=== PATIENT | male | born 1940 | race Caucasian/White ===

== ENCOUNTER → 2020-05-20 10:10 | Outpatient (BNVA) | payer MEDICARE, SELFPAY | PROVIDERS: PCP Internal Medicine; Visit Provider Hospitalist | DX: J41.8 Mixed simple and mucopurulent chronic bronchitis (principal); R91.8 Other nonspecific abnormal finding of lung field | CPT/HCPCS: 99212 ==

== ENCOUNTER 2020-09-01 14:53 | Emergency (ER) | payer MEDICARE, SELFPAY ==
--- NOTE | ~2020-09-01 | XR_ITS ---
EXAMINATION: XR CHEST CLINICAL INFORMATION: SOB. COMPARISON: None TECHNIQUE: Frontal view of the chest was obtained. FINDINGS: The lungs are hyperinflated but clear of acute process. Heart size and pulmonary vascularity is normal. No gross bony abnormality seen. XR/XR chest 1V IMPRESSION: Hyperinflated lungs are unremarkable.
[2020-09-01 15:37] VITALS: BP 131/85; PULSE 77; RESP 16; TEMP 36.8; O2SAT 98; BMI 23.7
[2020-09-01 16:22] LABS: Basophils Absolute Auto 0.1 X10*3/uL (0.0-0.2); Eosinophils Absolute Auto 0.9 X10*3/uL (0.0-0.4); Hematocrit 43.8 % (42-52); Hemoglobin 14.5 g/dl (14.0-18.0); Imm Gran Abs Auto 0.01 X10*3/uL (0.00-0.03); Imm Gran Pct Auto 0.1 % (0.0-0.4); Lymphocytes Absolute Auto 1.5 X10*3/uL (1.2-4.9); Lymphocytes Percent Auto 20.9 % (20-40); MANUAL DIFF FLAG NO; Mean Corpuscular HGB Conc 33.1 g/dl (31.0-36.0); Mean Corpuscular Hemoglobin 31.7 pg (27.0-33.0); Mean Corpuscular Volume 95.6 fL (80-98); Mean Platelet Volume 9.3 fL (9.4-12.4); Monocytes Absolute Auto 0.5 X10*3/uL (0.1-1.2); Monocytes Percent Auto 6.8 % (2-11); Neutrophils Absolute Auto 4.2 X10*3/uL (2.0-8.3); Neutrophils Percent Auto 59.2 % (45-73); Platelet Count 204 X10*3/uL (160-400); Red Blood Count 4.58 X10*6/uL (4.60-5.80); White Blood Count 7.2 X10*3/uL (4.8-10.8)
[2020-09-01 16:45] LABS: Anion Gap 13 (12-20); Blood Urea Nitrogen 10 mg/dL (9-16); Calcium 9.3 mg/dL (8.4-10.2); Carbon Dioxide 27 mmol/L (22-29); Chloride 104 mmol/L (96-108); Creatinine Clr Calc Pharmacy 70.9; Estimated Glomerular Filt Rate > 60; Glucose Random 98 mg/dL (60-115); Potassium 4.5 mmol/L (3.3-5.1); Sodium 139 mmol/L (135-145)
--- NOTE | 2020-09-01 16:55 | ED.SOB ---
HPI - SOB/Dyspnea General Chief Complaint: Dyspnea Stated Complaint: diff breathing Time Seen by Provider: 09/01/20 16:55 Source: patient Mode of arrival: ambulatory Limitations: no limitations History of Present Illness HPI Narrative: Patient history of COPD on Advair and albuterol inhaler pain congested and more short of breath with wheezing for last few days with postnasal drip and cough with mucopurulent expectoration no fever or chills no chest pain no leg swelling no palpitation patient get more short of breath when he exerts or do some work , feels congested in the night Related Data Home Medications Medication Instructions Recorded Confirmed fluticasone propionate 115 2 puff INHALATION BID 05/20/20 05/20/20 mcg-salmeterol 21 mcg/actuation HFA inhaler Previous Rx's Medication Instructions Recorded albuterol sulfate 90 mcg/actuation 2 inh INHALATION Q6H PRN 30 Days 05/20/20 aerosol inhaler #18 g albuterol sulfate 2.5 mg INHALATION Q4-6H PRN #180 ml 09/01/20 amoxicillin-pot clavulanate 1 tab PO BID #20 tab 09/01/20 [Augmentin] prednisone 40 mg PO DAILY #10 tab 09/01/20 Allergies Allergy/AdvReac Type Severity Reaction Status Date / Time Floxin Otic Allergy Severe Headache Uncoded 05/20/20 12:50 Review of Systems Review of Systems: Constitutional : No Weight loss, No Fever, No Chills ENT/Mouth : No sore throat, No Rhinorrhea Eyes: No Eye Pain, No Swelling Cardiovascular : No Chest Pain, no palpitations Respiratory : ++Cough, + Sputum, +shortness of breath Gastrointestinal : no Nausea, No Vomiting, No Diarrhea, No abdominal Pain, no black stools Genitourinary : No Dysuria, No Urinary Frequency Musculoskeletal : No joint pain, No Myalgias, No Joint Swelling Skin : No Skin Lesions, No rash Neuro : No Weakness, No Numbness, No Dizziness, No Headache Psych : No Anxiety/Panic, No Depression Heme/Lymph: No Bruising, No Lymphadenopathy Endocrine : No Polyuria, No Polydipsia All other systems reviewed and are negative PMFSH Past Medical History Medical History COPD (chronic obstructive pulmonary disease) Pulmonary nodules Social History Social History Alcohol intake: never Smoking Status: Former smoker Tobacco Type: Cigarette Use of substances other than those prescribed or required for medical reasons: No Advance Directives: No Advance Directives Information Provided: No Physical Exam Vital Signs: Vital Signs: Last Vital Signs Temp 98.2 F 09/01/20 15:37 Pulse 16 L 09/01/20 18:44 Resp 16 09/01/20 15:37 BP 131/85 09/01/20 15:37 Pulse Ox 94 09/01/20 18:44 Body Mass Index 23.7 Appearance: Alert. Oriented X3. No acute distress. Eyes: PERRLA, No Nystagmus ENT: Pharynx normal. Oral Mucosa moist Neck: Normal inspection. Neck supple. CVS: Normal heart rate and rhythm. Pulses normal. Respiratory: No respiratory distress. Equal air entry bilateral, bilateral diffuse wheezing with rhonchi , bilateral basal crackles ++ Abdomen: Soft and nontender. Bowel sounds are present, no mass palpable, no CVA tenderness Skin: Skin warm and dry. Normal skin color. Normal skin turgor. Extremities: No lower extremity edema. No calf tenderness Neuro: Oriented X 3. No motor deficit. No sensory deficit.No cerebellar signs , cranial nerves II-XII intact MDM - SOB/Dyspnea MDM Narrative Medical decision making narrative: Patient with chronic bronchitis COPD responded to nebulizing treatment prednisone discharge him on prednisone saturating 94 95% at room Medical Records Attestation: I reviewed the patient's medical records. Lab Data Attestation: I reviewed the patient's lab results. Result diagrams: 09/01/20 16:15 09/01/20 16:15 Labs: Lab Results 09/01/20 09/01/20 Range/Units 16:15 16:15 WBC 7.2 (4.8-10.8) X10*3/uL RBC 4.58 L (4.60-5.80) X10*6/uL Hgb 14.5 (14.0-18.0) g/dl Hct 43.8 (42-52) % MCV 95.6 (80-98) fL MCH 31.7 (27.0-33.0) pg MCHC 33.1 (31.0-36.0) g/dl RDW 13.0 (11.0-16.0) % Plt Count 204 (160-400) X10*3/uL MPV 9.3 L (9.4-12.4) fL Immature Gran % (Auto) 0.1 (0.0-0.4) % Neut % (Auto) 59.2 (45-73) % Lymph % (Auto) 20.9 (20-40) % [place] % (Auto) 6.8 (2-11) % Eos % (Auto) 12.0 H (0-4) % Baso % (Auto) 1.0 (0-2) % Lymph # (Auto) 1.5 (1.2-4.9) X10*3/uL [place] # (Auto) 0.5 (0.1-1.2) X10*3/uL Eos # (Auto) 0.9 H (0.0-0.4) X10*3/uL Baso # (Auto) 0.1 (0.0-0.2) X10*3/uL Abs Immat Gran (auto) 0.01 (0.00-0.03) X10*3/uL Absolute Neuts (auto) 4.2 (2.0-8.3) X10*3/uL Absolute Nucleated RBC 0.000 (0.0-0.012) X10*3/uL Nucleated RBC % (auto) 0.0 (0.0-0.2) /100WBC Sodium 139 (135-145) mmol/L Potassium 4.5 (3.3-5.1) mmol/L Chloride 104 (96-108) mmol/L Carbon Dioxide 27 (22-29) mmol/L Anion Gap 13 (12-20) BUN 10 (9-16) mg/dL Creatinine 0.83 (0.5-1.4) mg/dL Estim Creat Clear Calc 70.9 Estimated GFR > 60 Random Glucose 98 (60-115) mg/dL Calcium 9.3 (8.4-10.2) mg/dL Discharge Plan Discharge Clinical Impression: COPD (chronic obstructive pulmonary disease) Qualifiers: COPD type: COPD with acute lower respiratory infection Qualified Code(s): J44.0 - Chronic obstructive pulmonary disease with (acute) lower respiratory infection Patient Disposition: Home, Self-Care Instructions: Acute Bronchitis (ED), COPD (Chronic Obstructive Pulmonary Disease) (ED) Prescriptions: New prednisone 20 mg tablet 40 mg PO DAILY Qty: 10 RF: 0 amoxicillin-pot clavulanate [Augmentin] 875-125 mg tablet 1 tab PO BID Qty: 20 RF: 0 albuterol sulfate 2.5 mg /3 mL (0.083 %) solution for nebulization 2.5 mg inhalation Q4-6H PRN (Reason: shortness of breath or wheezing) Qty: 180 RF: 0 No Action Advair HFA 115-21 mcg/actuation HFA aerosol inhaler 2 puff inhalation BID RF: 0 albuterol sulfate 90 mcg/actuation HFA aerosol inhaler 2 inh inhalation Q6H PRN (Reason: shortness of breath or wheezing) 30 Days Qty: 18 RF: 12 Interventions: ED Discharge Assessment Last Done: 09/01/20 18:50 Discharge Date/Time: 09/01/20 19:22
[2020-09-01] MEDS: Albuterol/Iprat 2.5/0.5MG 3 ML AMPUL.NEB INHALE (17:18)
[2020-09-01] MEDS: Albuterol Sulfate (0.083%) 2.5 MG/3 ML VIAL.NEB 5 MG INHALE (17:18)
[2020-09-01 17:20] VITALS: PULSE 67; O2SAT 93
[2020-09-01] MEDS: predniSONE 20 MG TABLET 40 MG PO (17:28)
[2020-09-01] MEDS: Amoxicillin/Potassium Clav 875 MG TABLET PO (17:28)
[2020-09-01 18:44] VITALS: PULSE 16; O2SAT 94
== END 2020-09-01 19:22 | disposition home or self-care (01) ==
PROVIDERS: Emergency Provider Internal Medicine; PCP Internal Medicine
DX: J44.0 Chronic obstructive pulmonary disease with (acute) lower respiratory infection (principal); R91.8 Other nonspecific abnormal finding of lung field; Z79.51 Long term (current) use of inhaled steroids; Z79.899 Other long term (current) drug therapy; Z87.891 Personal history of nicotine dependence
CPT/HCPCS: 36415; 71045; 80048; 85025; 94640; 94644; 99284

== ENCOUNTER → 2020-09-30 10:48 | Outpatient (BNVA) | payer MEDICARE, SELFPAY | PROVIDERS: PCP Internal Medicine; Visit Provider Hospitalist | DX: D72.19 Other eosinophilia (principal); R91.8 Other nonspecific abnormal finding of lung field; J44.9 Chronic obstructive pulmonary disease, unspecified | CPT/HCPCS: 99212 ==

== ENCOUNTER → 2020-11-24 10:30 | Outpatient (BNVA) | payer MEDICARE, SELFPAY | PROVIDERS: PCP Internal Medicine; Visit Provider Hospitalist | DX: J44.9 Chronic obstructive pulmonary disease, unspecified (principal); R91.8 Other nonspecific abnormal finding of lung field; D72.19 Other eosinophilia | CPT/HCPCS: 99212 ==

== ENCOUNTER → 2021-06-01 10:40 | Outpatient (BNVA) | payer MEDICARE, SELFPAY | PROVIDERS: PCP Internal Medicine; Visit Provider Hospitalist | DX: J44.9 Chronic obstructive pulmonary disease, unspecified (principal); R91.8 Other nonspecific abnormal finding of lung field; D72.19 Other eosinophilia | CPT/HCPCS: 99212 ==

== ENCOUNTER → 2021-12-02 09:27 | Outpatient (BNVA) | payer MEDICARE, SELFPAY | PROVIDERS: PCP Internal Medicine; Visit Provider Hospitalist | DX: J44.9 Chronic obstructive pulmonary disease, unspecified (principal); R91.8 Other nonspecific abnormal finding of lung field; D72.19 Other eosinophilia; Z79.899 Other long term (current) drug therapy | CPT/HCPCS: 99212 ==

== ENCOUNTER 2022-11-22 09:27 | Outpatient (REF) | payer MEDICARE, SELFPAY | END 2022-11-22 09:28 | disposition home or self-care (01) | LOC: HO.RESP 09:27 | PROVIDERS: Visit Provider Hospitalist | DX: J44.9 Chronic obstructive pulmonary disease, unspecified (principal) | CPT/HCPCS: 94010; 94727; 94729 ==

== ENCOUNTER 2022-12-05 11:16 | Outpatient (AMB) | payer MEDICARE, SELFPAY ==
--- NOTE | 2022-12-05 11:21 | A.OFFVIS_ITS ---
Intake Vital Signs 12/05/22 11:22 Height 5 ft 8 in Weight 168 lb 10.458 oz BMI 25.6 BP 148/78 H Blood Pressure Location Rt brachial Position Sitting Pulse 60 Pulse Source Pulse Oximeter Pulse Oximetry (%) 94 Oxygen Delivery Method Room Air Intake Visit Reasons: COPD Allergies Floxin Otic Allergy (Severe, Uncoded 12/05/22 11:23) Headache HPI HPI Comments History of Present Illness Details The patient is a 82-year-old gentleman with a known history of asthma COPD overlap syndrome in addition to pulmonary nodules. 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 During that time was exposed to significant dust from surrounding tiles in route. He started feeling under the weather once he arrived to [facility]. Started developing worsening respiratory symptoms he was taken to the hospital. There he had an x-ray which was without any acute disease in he was placed on antibiotics and also prednisone. His symptoms not improve and actually worsen in the cold the on-call doctor to visit him in his room. He actually required 2 visits. His medications were increased both prednisone and was given a course of Augmentin. He was also given a short- acting beta agonist that he did not bring with him. Now the patient is better. He did have significant weight loss. We did have him get a CT scan of the chest back in November 2018 demonstrating stable pulmonary nodules when compared to his previous CAT scan. 11/20/2020 the patient is here for pulmonary follow-up visit. He is doing well overall. He continues uses respiratory therapy with good adherence. During the hot humid days he is having some shortness of breath and usually needs to take a break after half an hour outside. I explained to him that he should specially with the poor air quality that will resulting worsening respiratory symptoms along with more work of breathing. Patient should monitor closely the weather before going outside for any activities. In the meantime he did have a CT scan of the chest that we personally reviewed here in the office. We also compared to a CAT scan he had back in 2015. It appears that his nodules are still small and stable measuring 3-4 mm in size. In addition to that he continues to have chronic bronchitis but overall a little better with less mucus plugging which is reassuring. 05/20/2020 the patient is here for pulmonary follow-up visit. Overall he is still complaining of shortness of breath. Specially with the cold weather. However, he has not been using his Advair as prescribed. He understands he jeremy uld use it on a daily basis. Today he use it because remember. He also does not have a rescue inhaler. He has agreed to use the Advair least once a day in the morning before brushes his teeth. And I will send him a ProAir rescue inhaler to have as needed. He can also use it 15 minutes before planning to do any outside activities specially with the cold air causing bronchospasms. His last CT scan of the chest was done October 2019 demonstrating stable pulmonary nodules. Patient also has evidence of chronic bronchitis. Could consider treating for chronic bronchitis with Daliresp. We will discuss during the next visit if he is no better with better medication adherence. 09/30/2020 the patient is here for pulmonary follow-up visit. Since we last spoke the patient did require a brief hospitalization for a COPD exacerbation. Apparently the patient had been working outside when he all of a sudden became very winded. It was very hot and humid outside. He did go to the ER as per above recommendations. The patient was admitted to the hospital. We did review his chest x-ray demonstrating hyperinflated lungs consistent with COPD. In addition to that the patient had a significantly elevated eosinophil count suggesting some component of eosinophilic bronchitis. The patient likely has asthma COPD overlap syndrome. He was treated in subsequently released. Since that episode he has not had any other episodes. Although, he is not working outside with the [employer] like he normally does. He does enjoy going outside working. I did recommend that he could try getting a respirator where he can protect from small allergy particles to avoid the significant allergic reactions. He also has to be aware of the humidity levels. Overall he is doing okay. He still complains of dyspnea on exertion [id number] in severity. He also has a cough which at this point is nonproductive. 11/24/2020 the patient is here for a pulmonary follow-up visit. Overall the patient has been doing better. Responded well to the increasing the Advair. Still, when he goes outside and or goes into an area that is twin he starts coughing up again. I did advise him before and now to wear a mask specially when exposed to the particles and also known allergies. He does have significant eosinophilia that we spoke about again. At this point the patient does not require biologic therapy. Patient is interested in getting his 3rd COVID shot. He has a planned trip to go to her room via in January. I did advise him to wait till early January to get his COVID vaccine. He is to also get his flu shot around the same time just prior to his trip. At this point the patient is doing well will follow-up in 6 months. 06/01/2021 the patient is here for a pulmonary follow-up visit. He continues to be symptomatic at times. Does get short of breath with activity. He also has significant exposures that usually a trigger his obstructive airway disease. 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 this is a lot of dust around the may be triggering his Asthma. 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 The patient had been prescribed Advair HFA in addition to Spiriva. His adherence is not 100%. Sometimes he does not take both just takes 1 of the inhalers. Therefore I think he would be better off with Trelegy inhaler where he can be maximized on his respiratory therapy and just be once a day were he can use it more effectively and with more adherence. Patient understands that this is a chronic illness that may be present and will need to take medications to help improve his symptoms. 12/02/2021 the patient is here for a pulmonary follow-up visit. Overall he is doing lot better. The Trelegy inhaler has been very effective in beneficial for him. he has not had to use his rescue inhaler. He has been more active outside doing multiple projects because the fact that he feels better. Denies any weight loss or night sweats. Otherwise the patient is without any other complaints. His last chest x-ray was back in 2020 demonstrating hyperinflated lungs consistent with his obstructive airway disease. His last CT scan was back in 2019 demonstrating stable pulmonary nodules. At this point the patient seems to be doing well will plan to follow- up with pulmonary function studies. Will discuss further imaging studies during his visit in a year's time. If the patient has any symptoms or worsening symptoms prior to the next visit the patient is to call us for an earlier evaluation. [facility] Medical History (Updated 09/30/20 @ 22:55 by Shoaib Byrne MD) Asthma-COPD overlap syndrome COPD (chronic obstructive pulmonary disease) Eosinophilia Pulmonary nodules Social History (Updated 09/30/20 @ 11:01 by GRGE Fraga) Alcohol intake: never Patient Tobacco Use Status: Former Tobacco user Tobacco use type: Cigarette Years Smoked: 40 years Review of Systems Const Denies night sweats ENT Denies lip swelling and Denies tongue swelling Card Denies chest pain and Reports dyspnea on exertion Resp Reports cough, Reports dyspnea on exertion and Reports wheezing GI Denies abdominal pain Musc Denies no additional complaints Neuro Denies Neuro-related abnormal movements Psych Denies no additional complaints Mele/Lymph Denies easy bleeding and Denies lymphadenopathy Aller/Immun Denies lip swelling, Denies tongue swelling and Reports wheezing Physical Exam Vital Signs: Last Vital Signs Pulse 60 12/05/22 11:22 BP 148/78 H 12/05/22 11:22 Pulse Ox 94 12/05/22 11:22 Oxygen Delivery Method Room Air 12/05/22 11:22 BMI result Body Mass Index 25.6 Const General: alert Neck Neck: Yes normal visual inspection, Yes full ROM and Yes no lymphadenopathy Chest Chest palpation & inspection: normal inspection of the chest Resp Effort & Inspection: prolonged expiratory phase Auscultation: wheezes and diminished lung sounds Cardio Rate: regular rate Rhythm: regular rhythm Heart sounds: S1 normal heart sound present and S2 normal heart sound present GI Palpation (GI): Soft to palpation and nontender Auscultation: normal bowel sounds Skin General skin exam: rashes and/or lesions noted Assessment & Plan Assessment & Plan (1) Asthma-COPD overlap syndrome: Code(s): J44.9 - Chronic obstructive pulmonary disease, unspecified (2) Pulmonary nodules: Code(s): R91.8 - Other nonspecific abnormal finding of lung field (3) Eosinophilia: Code(s): D72.10 - Eosinophilia, unspecified Qualifiers: Eosinophilia type: other eosinophilia Qualified Code(s): D72.19 - Other eosinophilia Plan The patient has a eosinophilic allergic phenotype obstructive airway disease. He does have an asthma component in the this point with smoking history now has some overlap syndrome. Recommendations: -continue Trelegy 200 daily -continue Singular -start Azithromycin MWF x 1 month -Short-acting beta agonist as needed and also 15 minutes before exercise or extraneous activity -Last Ct chest 10/2019 demonstrating stable nodules -follow-up in 4 months Medications: New azithromycin Take 1 tablet on Monday/Monday/Monday 250 mg PO 3XW 28 days 12 tabs 0RF K21.9 - Gastro-esophageal reflux disease without esophagitis Coding Level of Care Code Est Pt Level 4 (08206) Diagnoses Asthma-COPD overlap syndrome J44.9 Pulmonary nodules R91.8 Eosinophilia D72.19 Eosinophilia type: other eosinophilia Time Spent (min) 17
[2022-12-05 11:22] VITALS: BP 148/78; PULSE 60; O2SAT 94; BMI 25.6
== END 2022-12-05 11:53 | disposition home or self-care (01) ==
PROVIDERS: PCP Internal Medicine; Visit Provider Hospitalist
DX: J44.9 Chronic obstructive pulmonary disease, unspecified (principal); R91.8 Other nonspecific abnormal finding of lung field; D72.19 Other eosinophilia
CPT/HCPCS: 99214

== ENCOUNTER → 2022-12-05 11:16 | Outpatient (BNVA) | payer MEDICARE, SELFPAY | PROVIDERS: PCP Internal Medicine; Visit Provider Hospitalist | DX: J44.9 Chronic obstructive pulmonary disease, unspecified (principal); R91.8 Other nonspecific abnormal finding of lung field; D72.19 Other eosinophilia; Z79.899 Other long term (current) drug therapy | CPT/HCPCS: 99212 ==

== ENCOUNTER 2023-02-28 09:45 | Outpatient (AMB) | payer MEDICARE, SELFPAY ==
[2023-02-28 09:49] VITALS: BP 128/70; PULSE 76; O2SAT 97; BMI 25.6
--- NOTE | 2023-02-28 09:49 | MHC.OFFVIS ---
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 During that time was exposed to significant dust from surrounding tiles in route. He started feeling under the weather once he arrived to [facility]. Started developing worsening respiratory symptoms he was taken to the hospital. There he had an x-ray which was without any acute disease in he was placed on antibiotics and also prednisone. His symptoms not improve and actually worsen in the cold the on-call doctor to visit him in his room. He actually required 2 visits. His medications were increased both prednisone and was given a course of Augmentin. He was also given a short-acting beta agonist that he did not bring with him. Now the patient is better. He did have significant weight loss. We did have him get a CT scan of the chest back in November 2018 demonstrating stable pulmonary nodules when compared to his previous CAT scan. 11/20/2020 the patient is here for pulmonary follow-up visit. He is doing well overall. He continues uses respiratory therapy with good adherence. During the hot humid days he is having some shortness of breath and usually needs to take a break after half an hour outside. I explained to him that he should specially with the poor air quality that will resulting worsening respiratory symptoms along with more work of breathing. Patient should monitor closely the weather before going outside for any activities. In the meantime he did have a CT scan of the chest that we personally reviewed here in the office. We also compared to a CAT scan he had back in 2015. It appears that his nodules are still small and stable measuring 3-4 mm in size. In addition to that he continues to have chronic bronchitis but overall a little better with less mucus plugging which is reassuring. 06/01/2021 the patient is here for a pulmonary follow-up visit. He continues to be symptomatic at times. Does get short of breath with activity. He also has significant exposures that usually a trigger his obstructive airway disease. 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 this is a lot of dust around the may be triggering his Asthma. 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 The patient had been prescribed Advair HFA in addition to Spiriva. His adherence is not 100%. Sometimes he does not take both just takes 1 of the inhalers. Therefore I think he would be better off with Trelegy inhaler where he can be maximized on his respiratory therapy and just be once a day were he can use it more effectively and with more adherence. Patient understands that this is a chronic illness that may be present and will need to take medications to help improve his symptoms. 12/02/2021 the patient is here for a pulmonary follow-up visit. Overall he is doing lot better. The Trelegy inhaler has been very effective in beneficial for him. he has not had to use his rescue inhaler. He has been more active outside doing multiple projects because the fact that he feels better. Denies any weight loss or night sweats. Otherwise the patient is without any other complaints. His last chest x-ray was back in 2020 demonstrating hyperinflated lungs consistent with his obstructive airway disease. His last CT scan was back in 2019 demonstrating stable pulmonary nodules. At this point the patient seems to be doing well will plan to follow-up with pulmonary function studies. Will discuss further imaging studies during his visit in a year's time. If the patient has any symptoms or worsening symptoms prior to the next visit the patient is to call us for an earlier evaluation. 02/28/2023 the patient is here for pulmonary follow-up visit. Overall doing better. He is taking the Trelegy more. He still getting short of breath with activity. He is on the treadmill for about a mallet have and is also using the bike for about a mi and a half. Tolerates this well he is also working outside. She we did talk about the significant eosinophilia. The patient will be a great candidate for al 5 inhibitors. 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 He will likely even be able to come off some of the inhalers. However, the patient is not ready for shots as of yet. I did give him information about it. He will consider. Will discuss it further in 6 months. He knows to use his inhaler more regularly to avoid any worsening symptoms. [facility] Medical History (Updated 02/28/23 @ 10:00 by Shoaib Byrne MD) Asthma Asthma-COPD overlap syndrome Eosinophilia Pulmonary nodules COPD (chronic obstructive pulmonary disease) (Updated 09/30/20 @ 11:01 by Cherrie Ibrahim Serafin) Alcohol intake: never Patient Tobacco Use Status: Former Tobacco user Tobacco use type: Cigarette Years Smoked: 40 years Review of Systems Const Denies night sweats ENT Denies lip swelling and Denies tongue swelling Card Denies chest pain and Reports dyspnea on exertion Resp Reports cough, Reports dyspnea on exertion and Reports wheezing GI Denies abdominal pain Musc Denies no additional complaints Neuro Denies Neuro-related abnormal movements Psych Denies no additional complaints Mele/Lymph Denies easy bleeding and Denies lymphadenopathy Aller/Immun Denies lip swelling, Denies tongue swelling and Reports wheezing Physical Exam Vital Signs: Last Vital Signs Pulse 76 02/28/23 09:49 BP 128/70 02/28/23 09:49 Pulse Ox 97 02/28/23 09:49 Oxygen Delivery Method Room Air 02/28/23 09:49 BMI result Body Mass Index 25.6 Const General: alert Neck Neck: Yes normal visual inspection, Yes full ROM and Yes no lymphadenopathy Chest Chest palpation & inspection: normal inspection of the chest Resp Effort & Inspection: normal respiratory effort Auscultation: no wheezes and diminished lung sounds Cardio Rate: regular rate Rhythm: regular rhythm Heart sounds: S1 normal heart sound present and S2 normal heart sound present GI Palpation (GI): Soft to palpation and nontender Auscultation: normal bowel sounds Skin General skin exam: rashes and/or lesions noted Assessment & Plan Assessment & Plan (1) Asthma-COPD overlap syndrome: Code(s): J44.9 - Chronic obstructive pulmonary disease, unspecified (2) Pulmonary nodules: Code(s): R91.8 - Other nonspecific abnormal finding of lung field (3) Eosinophilia: Code(s): D72.10 - Eosinophilia, unspecified Qualifiers: Eosinophilia type: other eosinophilia Qualified Code(s): D72.19 - Other eosinophilia Plan -continue Trelegy 200 daily -continue Singular -Short-acting beta agonist as needed and also 15 minutes before exercise or extraneous activity -ConsiderBiologic therapy with Fasenra if continues to be symptomatic. Would need to repeat bloodwork if that is the case -Last Ct chest 10/2019 demonstrating stable nodules -follow-up in 6 months Orders: Orders Complete Blood Count Auto Diff Today D72.10 - Eosinophilia, unspecified, J44.9 - Chronic obstructive pulmonary disease, unspecified, J45.909 - Unspecified asthma, uncomplicated, R91.8 - Other nonspecific abnormal finding of lung field Immunoglobulin E Today D72.10 - Eosinophilia, unspecified, J44.9 - Chronic obstructive pulmonary disease, unspecified, J45.909 - Unspecified asthma, uncomplicated, R91.8 - Other nonspecific abnormal finding of lung field Immunoglobulins,IgG IgA IgM Today D72.10 - Eosinophilia, unspecified, J44.9 - Chronic obstructive pulmonary disease, unspecified, J45.909 - Unspecified asthma, uncomplicated, R91.8 - Other nonspecific abnormal finding of lung field Basic Metabolic Panel Today D72.10 - Eosinophilia, unspecified, J44.9 - Chronic obstructive pulmonary disease, unspecified, J45.909 - Unspecified asthma, uncomplicated, R91.8 - Other nonspecific abnormal finding of lung field Coding Level of Care Code Est Pt Level 4 (20372) Diagnoses Asthma-COPD overlap syndrome J44.9 Pulmonary nodules R91.8 Other eosinophilia D72.19 Eosinophilia type: other eosinophilia Time Spent (min) 16
== END 2023-02-28 10:09 | disposition home or self-care (01) ==
PROVIDERS: PCP Family Medicine; Visit Provider Hospitalist
DX: J44.9 Chronic obstructive pulmonary disease, unspecified (principal); R91.8 Other nonspecific abnormal finding of lung field; D72.19 Other eosinophilia
CPT/HCPCS: 99214

== ENCOUNTER → 2023-02-28 09:45 | Outpatient (BNVA) | payer MEDICARE, SELFPAY | PROVIDERS: PCP Family Medicine; Visit Provider Hospitalist | DX: J44.9 Chronic obstructive pulmonary disease, unspecified (principal); R91.8 Other nonspecific abnormal finding of lung field; D72.19 Other eosinophilia | CPT/HCPCS: 99212 ==

== ENCOUNTER 2023-05-03 09:40 | Outpatient (AMB) | payer MEDICARE, SELFPAY ==
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
[2023-05-03 09:47] VITALS: BP 136/80; PULSE 84; RESP 13; O2SAT 97; BMI 26.2
== END 2023-05-03 11:45 | disposition home or self-care (01) ==
PROVIDERS: PCP Family Medicine; Visit Provider Family Medicine
DX: J44.9 Chronic obstructive pulmonary disease, unspecified (principal); R51.9 Headache, unspecified; M25.569 Pain in unspecified knee; Z12.11 Encounter for screening for malignant neoplasm of colon; Z12.5 Encounter for screening for malignant neoplasm of prostate; Z86.010 Personal history of colon polyps; Z00.00 Encounter for general adult medical examination without abnormal findings
CPT/HCPCS: 99203

== ENCOUNTER 2023-05-03 10:58 | Outpatient (REF) | payer MEDICARE, SELFPAY ==
[2023-05-03 14:55] LABS: MANUAL DIFF FLAG NO
[2023-05-03 15:10] LABS: Basophils Absolute Auto 0.1 X10*3/uL (0.0-0.2); Basophils Percent Auto 1.2 % (0-2); Eosinophils Absolute Auto 0.7 X10*3/uL (0.0-0.4); Eosinophils Percent Auto 10.9 % (0-4); Hemoglobin 14.5 g/dl (14.0-18.0); Imm Gran Abs Auto 0.02 X10*3/uL (0.00-0.03); Imm Gran Pct Auto 0.3 % (0.0-0.4); Lymphocytes Absolute Auto 1.8 X10*3/uL (1.2-4.9); Mean Corpuscular HGB Conc 32.2 g/dl (31.0-36.0); Mean Corpuscular Hemoglobin 30.9 pg (27.0-33.0); Mean Corpuscular Volume 95.9 fL (80.0-98.0); Mean Platelet Volume 9.8 fL (9.4-12.4); Monocytes Absolute Auto 0.6 X10*3/uL (0.1-1.2); Monocytes Percent Auto 8.7 % (2-11); Neutrophils Absolute Auto 3.5 x10*3/uL (2.0-8.3); Neutrophils Percent Auto 51.9 % (45-73); Platelet Count 275 X10*3/uL (160-400); Red Blood Count 4.69 X10*6/uL (4.60-5.80); Red Cell Distribution Width 13.2 % (11.0-16.0); White Blood Count 6.8 X10*3/uL (4.8-10.8)
[2023-05-03 15:15] LABS: Appearance Urine Clear; Color Urine Yellow; Glucose Urine UA Negative (Negative); Leukocyte Esterase Urine Negative (Negative); Nitrite Urine Negative (Negative); Specific Gravity - Urine 1.025 (1.005-1.025); Urine Blood Negative (Negative); Urine Ketones Negative (Negative); Urine Protein Negative (Neg-Trace)
[2023-05-03 15:20] LABS: Alanine Aminotransferase 17 U/L (0-40); Alkaline Phosphatase 73 U/L (39-117); Anion Gap 11 (12-20); Aspartate Amino Transferase 15 U/L (5-37); Bilirubin Total 1.1 mg/dL (0.0-1.0); Blood Urea Nitrogen 16 mg/dL (9-16); Calcium 9.3 mg/dL (8.4-10.2); Carbon Dioxide 28 mmol/L (22-29); Chloride 104 mmol/L (96-108); Cholesterol 214 mg/dL (<200); Estimated Glomerular Filt Rate > 60; Glucose Fasting 104 mg/dL (60-99); Glucose Random 103 mg/dL (60-115); HDL Cholesterol 52 mg/dL (>40); LDL Cholesterol Calculated 139 mg/dL (<100); Sodium 139 mmol/L (135-145); Total Protein 6.8 g/dL (6.5-8.0); Triglycerides 116 mg/dL (<150)
[2023-05-03 15:43] LABS: Prostate Specific Antigen Scr 4.51 ng/mL (<0.05-4.0)
[2023-05-03 15:46] LABS: TSH reflex Free T4 1.08 uIU/mL (0.32-4.0); Vitamin D 25-OH Total 34.9 ng/mL (>30)
[2023-05-03 16:19] LABS: Creatinine Urine 162.03 mg/dL; Microalbum/Creatinine Ratio Ur 8.6 ug/mg cr (<30)
[2023-05-05 18:28] LABS: IgA 264 mg/dL (70-320); IgG 1027 mg/dL (600-1540); IgM 86 mg/dL (50-300)
[2023-05-06 02:34] LABS: Immunoglobulin E 571 kU/L (<OR=114)
== END 2023-05-03 10:59 | disposition home or self-care (01) ==
LOC: HO.WFDLDS 10:58
PROVIDERS: Referring Provider Hospitalist; Visit Provider Family Medicine
DX: Z00.00 Encounter for general adult medical examination without abnormal findings (principal); E55.9 Vitamin D deficiency, unspecified; I10 Essential (primary) hypertension; D72.10 Eosinophilia, unspecified; R91.8 Other nonspecific abnormal finding of lung field; J44.9 Chronic obstructive pulmonary disease, unspecified; J45.909 Unspecified asthma, uncomplicated; Z12.5 Encounter for screening for malignant neoplasm of prostate
CPT/HCPCS: 36415; 80048; 80053; 80061; 81003; 82043; 82306; 82570; 82784; 82785; 84153; 84443; 85025

== ENCOUNTER 2023-05-10 10:00 | Outpatient (REF) | payer MEDICARE, SELFPAY ==
[2023-05-10 12:14] LABS: Prostate Specific Antigen Scr 5.13 ng/mL (<0.05-4.0)
== END 2023-05-10 10:01 | disposition home or self-care (01) ==
LOC: HO.WFDLDS 10:00
PROVIDERS: Visit Provider Family Medicine
DX: R97.20 Elevated prostate specific antigen [PSA] (principal); Z12.5 Encounter for screening for malignant neoplasm of prostate
CPT/HCPCS: 36415; 84153

== ENCOUNTER 2023-06-16 10:46 | Outpatient (AMB) | payer MEDICARE, SELFPAY ==
--- NOTE | 2023-06-16 11:15 | A.OFFVIS_ITS ---
Intake Intake Visit Reasons: elevated PSA (PSA quickly rising) Intake Note: NEW Patient presents today to established treatment for PSA: Results 5.13 ng/mL, 05/10/2023 Meds- None Allergies to Antibiotic- No Known Allergies Blood Thinner- None Post Void Residual: 10 mL Patient Symptoms: None [facility] Clergy Required: No Accompanied by: Self / Same As Patient Allergies Floxin Otic Allergy (Severe, Uncoded 06/16/23 11:39) Headache Medication List - Last Reconciled 06/16/23 by Billy Self MD albuterol sulfate 2.5 mg (3 mL) inhalation BID 30 days albuterol sulfate 90 mcg/actuation 2 inhalations inhalation Q6H PRN 30 days finasteride (Proscar) 5 mg PO DAILY 90 days gdymzmbrcwv-djjktvfrf-lnggjljk 200-62.5-25 mcg (Trelegy Ellipta) 1 inh inhalation DAILY 30 days nebulizers As directed HPI HPI Comments History of Present Illness Details is an 83-year-old male who is here for evaluation for elevated PSA Past Medical history Asthma-COPD overlap syndrome, Eosinophilia, Pulmonary nodules; Surgical History--History of arthroscopic knee surgery, History of appendectomy The patient had a PSA done on 05/03/2023--4.51 ng/mL and on 05/10/2023 was 5.13 ng/mL The AUA symptom score is 15. Some hesitancy nocturia x1. History of tobacco use. Prostate Exam: Smooth no hard nodules palpated, enlarged UA--leukocytes negative, blood negative 06/16/2023--PLAN: Proscar 5 mg daily Ultrasound retroperitoneum Repeat PSA in 4 months PFSH Medical History Headache Asthma Asthma-COPD overlap syndrome Eosinophilia Pulmonary nodules COPD (chronic obstructive pulmonary disease) Surgical History History of arthroscopic knee surgery History of appendectomy Family History Sister Intestinal cancer Brother Intestinal cancer Mother Intestinal cancer Social History Household Members: Spouse Caregiver staying overnight: No Housing: House Are you a primary hospice care transitions coordinator to a significant other at home: No Do you presently have visiting nurse or other home services: No 75 years or older and lives alone: No Alcohol intake: current Alcohol intake frequency: 0-2 drinks per day Alcohol type: beer and wine Patient Tobacco Use Status: Former Tobacco user Tobacco use type: Cigarette Years Smoked: 9 years total e-Cigarette/Vaping Use: Never Used service: Yes ([employer] 6 years) Current occupational status: retired and other Current occupational exposures/hazards: No Sexual orientation: Straight/Heterosexual Gender identity: Male Cognitive needs: No Hearing needs: No Vision needs: Yes (Saw the eye doctor and avoids night driving) Questionnaire AUA Symptom Score AUA Incomplete emptying - It does not feel like I empty my bladder all the way.: 3 - About half the time Frequency - I have to go again less than two hours after I finish urinating.: 2 - Less than half the time Intermittency - I stop and start again several times when I urinate.: 4 - More than half the time Urgency - It is hard to wait when I have to urinate.: 1 - Less than 1 time in 5 Weak stream - I have a weak urinary stream.: 4 - More than half the time Straining - I have to push or strain to begin urination.: 0 - Not at all Nocturia - I get up to urinate after I go to bed until the time I get up in the morning.: 1 time AUA Symptom Score: 15 Quality of life due to urinary symptoms: If you were to spend the rest of your life with your urinary condition the way it is now, how would you feel about that?: Pleased Source: Jose GUAMAN, Mehdi FULTON Jr, O'oKnrad MP, et al, and the Measurement Committee of the [place] [employer]. The [place] [employer] symptom index for benign prostatic hyperplasia. J Urol. 1992; 148: 1285-6886. Copyright 1992 [place] [employer] Review of Systems Const All systems reviewed & are unremarkable except as noted in HPI and below Reports no additional complaints Eyes Reports no additional complaints ENT Reports no additional complaints Card Reports as per HPI Resp Reports as per HPI, Reports change in phlegm color and Reports hemoptysis GI Reports no additional complaints Musc Reports no additional complaints Skin/Breast Denies rash and Denies unusual bruising Neuro Reports no additional complaints Psych Reports no additional complaints Endo Reports no additional complaints Mele/Lymph Reports no additional complaints Aller/Immun Reports no additional complaints Physical Exam Const General: healthy appearing, no acute distress and well developed Orientation/consciousness: patient oriented x3 HEENT Head: Yes normocephalic and Yes atraumatic Eyes Conjunctivae: conjunctivae normal Neck Neck: Yes normal visual inspection Chest Chest palpation & inspection: normal inspection of the chest Resp Effort & Inspection: normal respiratory effort Cardio Rate: regular rate GI Inspection: Yes normal to inspection Palpation (GI): Soft to palpation Other: Prostate Exam: Smooth no hard nodules palpated, enlarged Work testicle mildly atrophic, tender Penis: normal penis and uncircumcised Scrotum: scrotum normal and testes descended bilaterally Skin General skin exam: no rashes or lesions noted Neuro General: patient oriented x3 Extrem General: No pedal edema Psych Appearance: grossly normal Affect: normal affect Office Procedures Post Void Residual Post Residual Void Post Void Residual (PVR): 10 [id number] Void Residual by ultrasound Results AMB Urinalysis, Automated UA Leukoctes 0 Loretta/uL Last Edit by GREG Mata on 06/16/23 11:38 UA Nitrite Negative Last Edit by GREG Mata on 06/16/23 11:38 UA Urobilinogen 0.2 mg/dL Last Edit by GREG Mata on 06/16/23 11:3 8 UA Protein 15 mg/dL Last Edit by GREG Mata on 06/16/23 11:38 UA pH 6.0 Last Edit by GREG Mata on 06/16/23 11:38 UA Blood 0 Wesley/uL Last Edit by GREG Mata on 06/16/23 11:38 UA Specific [place] 1.025 Last Edit by GREG Mata on 06/16/23 11: 38 UA Ketone Negative Last Edit by Zuhair Freire, RMA on 06/16/23 11:38 UA Bilirubin 0 mg/dL Last Edit by Zuhair Freire, SHAREEA on 06/16/23 11:38 UA Glucose 0 mg/dL Last Edit by Zuhair Freire, GREG on 06/16/23 11:38 Assessment & Plan Assessment & Plan (1) Elevated PSA: Code(s): R97.20 - Elevated prostate specific antigen [PSA] (2) BPH loc w urin obs/LUTS: Code(s): N40.1 - Benign prostatic hyperplasia with lower urinary tract symptoms Plan Proscar 5 mg daily Ultrasound retroperitoneum Repeat PSA in 4 months Orders: Orders AMB Urinalysis Automated Today Z13.9 - Encounter for screening, unspecified AMB Post Void Residual by ultrasound Today N39.8 - Other specified disorders of urinary system US retroperitoneal comp 1 Month N40.1 - Benign prostatic hyperplasia with lower urinary tract symptoms, R97.20 - Elevated prostate specific antigen [PSA] PSA,Total (Free>4and<10) 14 Weeks R97.20 - Elevated prostate specific antigen [PSA] Medications: New finasteride (Proscar) 5 mg PO DAILY 90 tabs 3RF 90 days C61 - Malignant neoplasm of prostate Patient Instructions: The patient had an opportunity to ask questions regarding treatment plan. All questions were answered. Laboratory studies and physical exam results were discussed and reviewed in detail. No major barriers to understanding were identified. The patient expressed understanding and agreement with the above treatment plan. The patient is aware they should contact our office by phone for worsening of their current condition or the appearance of new symptoms. Compliance is encouraged with any medications and followup testing that is ordered. It is a privilege to be allowed the opportunity to participate in the urologic care of your patient. If you have any questions or concerns regarding treatment for the above conditions please do not hesitate to contact me. The office telephone contact is [phone]. This note is constructed in part using voice recognition software. While every effort has been made to ensure accuracy release of information specialist errors may have been included. Yours sincerely, Billy Self MD Quality Reporting (2019) Benign Prostatic Hyperplasia ([facility] 771) AUA symptom score: 15 Quality of life due to urinary symptoms: If you were to spend the rest of your life with your urinary condition the way it is now, how would you feel about that?: Pleased Coding Level of Care Code New Pt Level 4 (88694) Diagnoses Elevated PSA R97.20 BPH loc w urin obs/LUTS N40.1 CPT Codes Post Residual Void - PVR CPT Code: 41409-[id number] Void Residual by ultrasound ([id number])
== END 2023-06-16 12:11 | disposition home or self-care (01) ==
PROVIDERS: PCP Family Medicine; Visit Provider Urology
DX: R97.20 Elevated prostate specific antigen [PSA] (principal); N40.1 Benign prostatic hyperplasia with lower urinary tract symptoms; Z13.9 Encounter for screening, unspecified
CPT/HCPCS: 99204

== ENCOUNTER → 2023-06-16 10:46 | Outpatient (BNVA) | payer MEDICARE, SELFPAY | PROVIDERS: PCP Family Medicine; Visit Provider Urology | DX: N40.1 Benign prostatic hyperplasia with lower urinary tract symptoms (principal); R97.20 Elevated prostate specific antigen [PSA] | CPT/HCPCS: 51798; 81003; 99202 ==

== ENCOUNTER 2023-07-17 09:43 | Outpatient (REF) | payer MEDICARE, SELFPAY ==
--- NOTE | ~2023-07-17 | US_ITS ---
EXAMINATION: US RETROPERITONEAL COMPLETE (RENAL) CLINICAL INFORMATION: Benign prostatic hyperplasia with lower urinary tract symptoms. COMPARISON: None available. TECHNIQUE: Real-time imaging of the kidneys and bladder. FINDINGS: RIGHT KIDNEY: 9.1 x 5.8 x 5.5 cm (SAG x AP x TRV). The kidney is normal in size, contour, and echogenicity. Renal cortical thickness is normal. No calculi or focal parenchymal lesions. No hydronephrosis. LEFT KIDNEY: 12.4 x 5.2 x 6.2 cm (SAG x AP x TRV). The kidney is normal in size, contour, and echogenicity. Renal cortical thickness is normal. 7 cm cyst exophytic to the upper pole. This is minimally complex with single thin septation. No imaging follow-up recommended. 2.5 x 2.3 x 3 cm solid echogenic lesion in the lower pole of the left kidney suggestive of a mass. 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 Follow-up CT or MRI of the kidneys with and without contrast recommended for further characterization. No renal calculi or hydronephrosis. BLADDER: The prostate gland protrudes into the base of the bladder. No bladder stone, mass or wall thickening seen. Bilateral ureteral jets are not demonstrated. Prevoid bladder volume is 223 mL. Postvoid bladder volume is 47.3 mL. ADDITIONAL FINDINGS: The prostate gland is enlarged measuring 5.2 x 6.7 x 5 cm, volume 92 mL. US/US retroperitoneal comp IMPRESSION: Normal right kidney. 2.5 x 2.3 x 3 cm echogenic solid mass in the lower pole of the left kidney. 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 Further characterization with CT or MR of the kidneys according to renal mass protocol with and without IV contrast recommended. Enlarged prostate gland that protrudes into the base of the bladder. 47 mL post void bladder residual. Findings will be communicated by the [facility] quality control industrial engineer..
== END 2023-07-17 09:44 | disposition home or self-care (01) ==
LOC: HO.US 09:43
PROVIDERS: PCP Family Medicine; Visit Provider Urology
DX: N40.1 Benign prostatic hyperplasia with lower urinary tract symptoms (principal); R97.20 Elevated prostate specific antigen [PSA]
CPT/HCPCS: 76770

== ENCOUNTER 2023-07-26 13:55 | Outpatient (AMB) | payer MEDICARE, SELFPAY ==
--- NOTE | 2023-07-26 14:02 | A.OFFPC_ITS ---
Vital Signs 07/26/23 14:06 Height 5 ft 8 in Weight 173 lb BMI 26.3 BP 102/68 Blood Pressure Location Lt brachial Position Sitting Respiration 13 Pulse 71 Pulse Source Pulse Oximeter Pulse Oximetry (%) 97 Oxygen Delivery Method Room Air Intake Visit Reasons: Extended exam with f/u labs and health maintenance Intake Note: Patient is here to follow up with labs post CPE. Patient obtained labs 05-03-23. Patient has also been seen by urology since last visit. Patient is concerned about his results for his ultrasound. Patient has an appointment with Pulmonology in August. 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: No Accompanied by: Spouse Allergies Floxin Otic Allergy (Severe, Uncoded 07/26/23 14:12) Headache Medication List - Last Reconciled 07/26/23 by Ace Barton MD albuterol sulfate 2.5 mg (3 mL) inhalation BID 30 days albuterol sulfate 90 mcg/actuation 2 inhalations inhalation Q6H PRN 30 days finasteride (Proscar) 5 mg PO DAILY 90 days beldhdfukce-qdffvizax-iavoimhm 200-62.5-25 mcg (Trelegy Ellipta) 1 inh inhalation DAILY 30 days nebulizers As directed Tobacco use date assessed: 05/03/23 Dental Screening Dental Screen Date: 05/03/23 HPI Extended exam with f/u labs and health maintenance HPI Details 83 y/o male presents for an extended exa m with f/u labs and health maintenance. Labs were drawn 05/03/23. Reviewed labs with pt. Elevated fasting glucose of 104. Triglycerides 116. TC 214. LDL 139. HDL 52. PSA elevated at 4.51. Retroperitoneum ultrasound 07/17/23. Per note: Normal right kidney. 2.5 x 2.3 x 3 cm echogenic solid mass in the lower pole of the left kidney. 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 HPI Comments History of Present Illness Details Documentation assistance for Ace Barton MD, was provided by Yonathan Kevin, Security Shift Manager on 07/26/2023 2:51 PM HEBER. Esvin, Dr. Barton, have read, observed, and verified documentation. [facility] Medical History Headache Asthma Asthma-COPD overlap syndrome Eosinophilia Pulmonary nodules COPD (chronic obstructive pulmonary disease) Surgical History History of arthroscopic knee surgery History of appendectomy Family History Sister Intestinal cancer Brother Intestinal cancer Mother Intestinal cancer Social History Household Members: Spouse Caregiver staying overnight: No Housing: House Are you a primary ostomy care nurse to a significant other at home: No Do you presently have visiting nurse or other home services: No 75 years or older and lives alone: No Alcohol intake: current Alcohol intake frequency: 0-2 drinks per day Alcohol type: beer and wine Patient Tobacco Use Status: Former Tobacco user Tobacco use type: Cigarette Years Smoked: 9 years total e-Cigarette/Vaping Use: Never Used service: Yes ([employer] 6 years) Current occupational status: retired and other Current occupational exposures/hazards: No Sexual orientation: Straight/Heterosexual Gender identity: Male Cognitive needs: No Hearing needs: No Vision needs: Yes (Saw the eye doctor and avoids night driving) Questionnaire Thrive Questionnaire Date Thrive assessed: 05/03/23 MALIK-7 AMB Questionnaire MALIK-7 Date MALIK - 7 assessed: 05/03/23 Source: Developed by Drs. Vipin Albright, Ludmila Green, Modesto Thomas and colleagues, with an educational namita from [employer]. Review of Systems Const Denies chills, Denies fatigue, Denies fever(s), Denies headache(s) and Denies weakness Eyes Denies change in vision ENT Denies dizziness, Denies headache(s), Denies hearing loss, Denies nasal congestion, Denies sinus pain, Denies sinus pressure and Denies sore throat Card Denies chest pain, Denies lightheadedness, Denies dyspnea and Denies other (palpitations) Resp Denies cough, Denies dyspnea and Denies wheezing GI Denies abdominal pain, Denies melena, Denies hematochezia, Denies change in bowel habits, Denies dyspepsia and Denies nausea Denies hematuria and Denies dysuria Musc Denies abnormal gait, Denies myalgias, Denies arthralgias, Denies numbness and Denies tingling Skin/Breast Denies rash, Denies unusual bruising and Denies wounds Neuro Denies abnormal gait, Denies dizziness, Denies headache(s), Denies memory loss, Denies numbness, Denies Sensory deficit (Neuro), Denies tingling and Denies weakness Psych Denies anxiety, Denies depression and Denies memory loss Endo Denies cold intolerance, Denies fatigue, Denies heat intolerance, Denies polydipsia and Denies polyuria Mele/Lymph Denies easy bleeding and Denies easy bruising Aller/Immun Denies wheezing Physical exam (Primary Care) Vital Signs: Last Vital Signs Pulse 71 07/26/23 14:06 Resp 13 07/26/23 14:06 BP 102/68 07/26/23 14:06 Pulse Ox 97 07/26/23 14:06 Oxygen Delivery Method Room Air 07/26/23 14:06 BMI result Body Mass Index 26.3 Tobacco/Smoking Status: Tobacco use Status Tobacco use date assessed 05/03/23 07/26/23 14:03 Patient Tobacco Use Status Former Tobacco user 07/26/23 14:03 Tobacco use type Cigarette 07/26/23 14:03 e-Cigarette/Vaping Use Never Used 07/26/23 14:03 Thrive Assessment: Date of Thrive Assessment Date Thrive assessed 05/03/23 07/26/23 14:03 Const General: no acute distress, well developed, alert and awake Nutritional Appearance: well nourished Orientation/consciousness: patient oriented x3 HENMT Head: Yes normocephalic and Yes atraumatic Ears: hearing grossly normal bilaterally and TM's normal bilaterally General nose exam: Normal external nose present and Normal nares present Mouth: Normal oral and palatal mucosa present and moist mucous membranes Teeth and gingiva: dentition normal Throat: Yes posterior oropharynx normal Eyes General: appearance normal, both eyes and all related structures Pupils: Equal, round and reactive pupils present and Pupil accommodation reflex normal EOM: EOMs intact bilaterally Neck Neck: Yes normal visual inspection, Yes no lymphadenopathy and Yes trachea midline Thyroid: Thyroid normal Carotids: no bruits Lymphatic: no lymphadenopathy noted Chest Chest palpation & inspection: normal inspection of the chest Resp Effort & Inspection: normal respiratory effort Auscultation: clear to auscultation bilaterally Cardio Rate: regular rate Rhythm: regular rhythm Heart sounds: S1 normal heart sound present, S2 normal heart sound present, no gallops, no murmurs and no rubs Bruits: no abdominal aortic bruits and no carotid bruits GI Palpation (GI): No Abdominal aortic bruit present, Soft to palpation, nontender, No hepatosplenomegaly present and No Rebound tenderness present Auscultation: normal bowel sounds General: Yes no CVA tenderness Back/Spine/Pelvis Back: no CVA tenderness Cervical Spine: cervical ROM normal and No Cervical spine tenderness Thoracic/Lumbar Spine: thoraco-lumbar ROM normal, No pain with thoraco-lumbar ROM, No thoracic spinal tenderness and No lumbar spinal tenderness Skin Lesions: no lesions Rashes: no rashes Trauma: no lacerations or abrasions Wounds: no wounds Nails: normal Neuro General: patient oriented x3 Cranial nerves: Yes Equal, round and reactive pupils present Cognition (Neuro): normal cognition Gait exam (Neuro): Normal gait present Motor exam (neuro): 5/5 motor strength present throughout Sensory Exam: No Sensory deficit (Neuro) Deep tendon reflexes (DTR's): Right patellar reflex intensity grade: 2+ and Left patellar reflex intensity grade: 2+ Extrem General: Yes normal to inspection and No edema Psych Appearance: grossly normal Affect: normal affect Attitude: cooperative Thought process: Normal thought process present Assessment and Plan Assessment & Plan (1) Elevated PSA: Code(s): R97.20 - Elevated prostate specific antigen [PSA] Plan: Followed?by?urology (2) BPH loc w urin obs/LUTS: Code(s): N40.1 - Benign prostatic hyperplasia with lower urinary tract symptoms Plan: Followed?by?urology?and?now?on?finasteride Follow-up?with?urologist?as?recommend (3) Hypercholesterolemia: Code(s): E78.00 - Pure hypercholesterolemia, unspecified Plan: Lipids?are?elevated.??Encouraged?a?diet?lower?in?saturated?fats?and?cholesterol Encouraged?exercise?and?weight?loss (4) Elevated fasting glucose: Code(s): R73.01 - Impaired fasting glucose Plan: Mildly?elevated?fasting?blood?sugar Will?repeat?in?3?months Encouraged?a?diet?lower?in?sugars?and?starches,?exercise?and?some?weight?loss (5) Kidney mass: Code(s): N28.89 - Other specified disorders of kidney and ureter Plan: Has?upcoming?appointment?with?Urology Encouraged?follow (6) Screening for prostate cancer: Code(s): Z12.5 - Encounter for screening for malignant neoplasm of prostate Plan: As?above (7) Adult general medical exam: Code(s): Z00.00 - Encounter for general adult medical examination without abnormal findings Plan: 83-year-old?male?presents?for?extended?exam Encouraged?healthy?diet?with?active?lifestyle?and?plenty?of?exercise Orders: Orders Comprehensive [place]. Panel Fast Today Z00.00 - Encounter for general adult medical examination without abnormal findings Lipid Panel Today Z00.00 - Encounter for general adult medical examination without abnormal findings Coding Level of Care Code Est Pt Level 4 (45575) Diagnoses Elevated PSA R97.20 BPH loc w urin obs/LUTS N40.1 Hypercholesterolemia E78.00 Elevated fasting glucose R73.01 Kidney mass N28.89 Screening for prostate cancer Z12.5 Adult general medical exam Z00.00
[2023-07-26 14:06] VITALS: BP 102/68; PULSE 71; RESP 13; O2SAT 97; BMI 26.3
== END 2023-07-26 15:21 | disposition home or self-care (01) ==
PROVIDERS: PCP Family Medicine; Visit Provider Family Medicine
DX: R97.20 Elevated prostate specific antigen [PSA] (principal); N40.1 Benign prostatic hyperplasia with lower urinary tract symptoms; E78.00 Pure hypercholesterolemia, unspecified; R73.01 Impaired fasting glucose; N28.89 Other specified disorders of kidney and ureter; Z12.5 Encounter for screening for malignant neoplasm of prostate; Z00.00 Encounter for general adult medical examination without abnormal findings
CPT/HCPCS: 99214

== ENCOUNTER 2023-09-05 08:59 | Outpatient (AMB) | payer MEDICARE, SELFPAY ==
[2023-09-05 09:08] VITALS: BP 134/60; PULSE 62; O2SAT 96; BMI 26.5
--- NOTE | 2023-09-05 09:08 | MHC.OFFVIS ---
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 During that time was exposed to significant dust from surrounding tiles in route. He started feeling under the weather once he arrived to [facility]. Started developing worsening respiratory symptoms he was taken to the hospital. There he had an x-ray which was without any acute disease in he was placed on antibiotics and also prednisone. His symptoms not improve and actually worsen in the cold the on-call doctor to visit him in his room. He actually required 2 visits. His medications were increased both prednisone and was given a course of Augmentin. He was also given a short-acting beta agonist that he did not bring with him. Now the patient is better. He did have significant weight loss. We did have him get a CT scan of the chest back in November 2018 demonstrating pulmonary nodules compared to his previous CAT scan. 02/28/2023 the patient is here for pulmonary follow-up visit. Overall doing better. He is taking the Trelegy more. He still getting short of breath with activity. He is on the treadmill for about a mallet have and is also using the bike for about a mi and a half. Tolerates this well he is also working outside. She we did talk about the significant eosinophilia. The patient will be a great candidate for al 5 inhibitors. 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 He will likely even be able to come off some of the inhalers. However, the patient is not ready for shots as of yet. I did give him information about it. He will consider. Will discuss it further in 6 months. He knows to use his inhaler more regularly to avoid any worsening symptoms. 09/05/2023 the patient is here for a pulmonary follow-up visit. He is responding well to the Trelegy inhaler. Still having episodes of coughing shortness of breath. Hwfe-am-khcyrffr severity. He has been working outside going to mouth. The patient does have a history pulmonary nodules. The last time they did were visualized was back in 2019. He should really have a repeat CT scan to address the pulmonary nodules and make sure they are stable. He also had a chest x-ray back in 2020 demonstrating hyperinflated lungs. The patient will continue taking the Trelegy. The patient will return in the fall after having a CT scan of the chest. If he has any worsening symptoms or any other concerning symptoms she should call for an earlier assessment. [facility] Medical History Headache Asthma Asthma-COPD overlap syndrome Eosinophilia Pulmonary nodules COPD (chronic obstructive pulmonary disease) Surgical History History of arthroscopic knee surgery History of appendectomy Family History Sister Intestinal cancer Brother Intestinal cancer Mother Intestinal cancer Social History Household Members: Spouse Caregiver staying overnight: No Housing: House Are you a primary critical care nurse to a significant other at home: No Do you presently have visiting nurse or other home services: No 75 years or older and lives alone: No Alcohol intake: current Alcohol intake frequency: 0-2 drinks per day Alcohol type: beer and wine Patient Tobacco Use Status: Former Tobacco user Tobacco use type: Cigarette Years Smoked: 9 years total e-Cigarette/Vaping Use: Never Used service: Yes ([employer] 6 years) Current occupational status: retired and other Current occupational exposures/hazards: No Sexual orientation: Straight/Heterosexual Gender identity: Male Cognitive needs: No Hearing needs: No Vision needs: Yes (Saw the eye doctor and avoids night driving) Review of Systems Const Denies night sweats ENT Denies lip swelling and Denies tongue swelling Card Denies chest pain and Reports dyspnea on exertion Resp Reports cough, Reports dyspnea on exertion and Reports wheezing GI Denies abdominal pain Musc Denies no additional complaints Neuro Denies Neuro-related abnormal movements Psych Denies no additional complaints Mele/Lymph Denies easy bleeding and Denies lymphadenopathy Aller/Immun Denies lip swelling, Denies tongue swelling and Reports wheezing Physical Exam Vital Signs: Last Vital Signs Pulse 62 09/05/23 09:08 BP 134/60 09/05/23 09:08 Pulse Ox 96 09/05/23 09:08 Oxygen Delivery Method Room Air 09/05/23 09:08 BMI result Body Mass Index 26.5 Const General: alert Neck Neck: Yes normal visual inspection, Yes full ROM and Yes no lymphadenopathy Chest Chest palpation & inspection: normal inspection of the chest Resp Effort & Inspection: normal respiratory effort Auscultation: no wheezes and diminished lung sounds Cardio Rate: regular rate Rhythm: regular rhythm Heart sounds: S1 normal heart sound present and S2 normal heart sound present GI Palpation (GI): Soft to palpation and nontender Auscultation: normal bowel sounds Skin General skin exam: rashes and/or lesions noted Assessment & Plan Assessment & Plan (1) Asthma-COPD overlap syndrome: Code(s): J44.9 - Chronic obstructive pulmonary disease, unspecified Category: Medical (2) Pulmonary nodules: Code(s): R91.8 - Other nonspecific abnormal finding of lung field Category: Medical (3) Eosinophilia: Code(s): D72.10 - Eosinophilia, unspecified Category: Medical Qualifiers: Eosinophilia type: other eosinophilia Qualified Code(s): D72.19 - Other eosinophilia Plan -continue Trelegy 200 daily -continue Singular -Short-acting beta agonist as needed and also 15 minutes before exercise or extraneous activity -Consider Biologic therapy with Fasenra if continues to be symptomatic. Would need to repeat bloodwork if that is the case -Last Ct chest -follow-up in 6 months Orders: Orders CT chest wo IV con 3 Months R91.8 - Other nonspecific abnormal finding of lung field Coding Level of Care Code Est Pt Level 4 (00399) Diagnoses Asthma-COPD overlap syndrome J44.9 Pulmonary nodules R91.8 Other eosinophilia D72.19 Eosinophilia type: other eosinophilia Time Spent (min) 17
== END 2023-09-05 09:25 | disposition home or self-care (01) ==
PROVIDERS: PCP Family Medicine; Visit Provider Hospitalist
DX: J44.9 Chronic obstructive pulmonary disease, unspecified (principal); R91.8 Other nonspecific abnormal finding of lung field; D72.19 Other eosinophilia
CPT/HCPCS: 99214

== ENCOUNTER → 2023-09-05 08:59 | Outpatient (BNVA) | payer MEDICARE, SELFPAY | PROVIDERS: PCP Family Medicine; Visit Provider Hospitalist | DX: J44.9 Chronic obstructive pulmonary disease, unspecified (principal); D72.10 Eosinophilia, unspecified; R91.8 Other nonspecific abnormal finding of lung field; J45.909 Unspecified asthma, uncomplicated | CPT/HCPCS: 99212 ==

== ENCOUNTER 2023-10-02 11:54 | Outpatient (REF) | payer MEDICARE, SELFPAY ==
[2023-10-02 15:23] LABS: PSA,Total (Free>4and<10) 2.31 ng/mL (0.00-4.00)
== END 2023-10-02 11:55 | disposition home or self-care (01) ==
LOC: HO.WFDLDS 11:54
PROVIDERS: Visit Provider Urology
DX: R97.20 Elevated prostate specific antigen [PSA] (principal); Z12.5 Encounter for screening for malignant neoplasm of prostate
CPT/HCPCS: 36415; 84153

== ENCOUNTER 2023-10-16 10:59 | Outpatient (AMB) | payer MEDICARE, SELFPAY ==
--- NOTE | 2023-10-16 11:03 | MHC.OFFVIS ---
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 He is prescribed Proscar. He had PSA done on 10/02/23, results2.31, the patient had a renal ultrasound performed on 07/17/2023 there is a small echogenic lesion 2.5 cm which may represent angiomyolipoma however further imaging is necessary to rule out a solid mass. I have discussed further evaluation with MRI renal mass protocol. Will cont proscar daily. Review of chart: 06/16/23-- is an 83-year-old male who is here for evaluation for elevated PSA Past Medical history Asthma-COPD overlap syndrome, Eosinophilia, Pulmonary nodules; Surgical History--History of arthroscopic knee surgery, History of appendectomy The patient had a PSA done on 05/03/2023--4.51 ng/mL and on 05/10/2023 was 5.13 ng/mL The AUA symptom score is 15. Some hesitancy nocturia x1. History of tobacco use. Prostate Exam: Smooth no hard nodules palpated, enlarged. UA--leukocytes negative, blood negative PFSH Medical History Headache Asthma Asthma-COPD overlap syndrome Eosinophilia Pulmonary nodules COPD (chronic obstructive pulmonary disease) Surgical History History of arthroscopic knee surgery History of appendectomy Family History Sister Intestinal cancer Brother Intestinal cancer Mother Intestinal cancer Social History Household Members: Spouse Caregiver staying overnight: No Housing: House Are you a primary chiropractic care to a significant other at home: No Do you presently have visiting nurse or other home services: No 75 years or older and lives alone: No Alcohol intake: current Alcohol intake frequency: 0-2 drinks per day Alcohol type: beer and wine Patient Tobacco Use Status: Former Tobacco user Tobacco use type: Cigarette Years Smoked: 9 years total e-Cigarette/Vaping Use: Never Used service: Yes ([employer] 6 years) Current occupational status: retired and other Current occupational exposures/hazards: No Sexual orientation: Straight/Heterosexual Gender identity: Male Cognitive needs: No Hearing needs: No Vision needs: Yes (Saw the eye doctor and avoids night driving) Review of Systems Const All systems reviewed & are unremarkable except as noted in HPI and below Reports no additional complaints Eyes Reports no additional complaints ENT Reports no additional complaints Card Reports no additional complaints Resp Reports no additional complaints GI Reports no additional complaints Reports as per HPI Musc Reports no additional complaints Skin/Breast Reports system reviewed and no additional complaints, except as documented Neuro Reports no additional complaints Psych Reports no additional complaints Endo Reports no additional complaints Mele/Lymph Reports no additional complaints Aller/Immun Reports no additional complaints Results AMB Urinalysis, Automated UA Leukoctes 0 Loretta/uL Last Edit by ANNIE Keys on 10/16/23 11:14 UA Nitrite Negative Last Edit by ANNIE Keys on 10/16/23 11:14 UA Urobilinogen 0.2 mg/dL Last Edit by ANNIE Keys on 10/16/23 11:14 UA Protein 0 mg/dL Last Edit by ANNIE Keys on 10/16/23 11:14 UA pH 6.0 Last Edit by ANNIE Keys on 10/16/23 11:14 UA Blood 0 Wesley/uL Last Edit by ANNIE Keys on 10/16/23 11:14 UA Specific [place] 1.015 Last Edit by ANNIE Keys on 10/16/23 11:14 UA Ketone Negative Last Edit by ANNIE Keys on 10/16/23 11:14 UA Bilirubin 0 mg/dL Last Edit by ANNIE Keys on 10/16/23 11:14 UA Glucose 0 mg/dL Last Edit by ANNIE Keys on 10/16/23 11:14 Results Reviewed Results Reviewed: Date of Service: 07/17/23 Procedure(s): US retroperitoneal comp EXAMINATION: US RETROPERITONEAL COMPLETE (RENAL) CLINICAL INFORMATION: Benign prostatic hyperplasia with lower urinary tract symptoms. COMPARISON: None available. TECHNIQUE: Real-time imaging of the kidneys and bladder. FINDINGS: RIGHT KIDNEY: 9.1 x 5.8 x 5.5 cm (SAG x AP x TRV). The kidney is normal in size, contour, and echogenicity. Renal cortical thickness is normal. No calculi or focal parenchymal lesions. No hydronephrosis. LEFT KIDNEY: 12.4 x 5.2 x 6.2 cm (SAG x AP x TRV). The kidney is normal in size, contour, and echogenicity. Renal cortical thickness is normal. 7 cm cyst exophytic to the upper pole. This is minimally complex with single thin septation. No imaging follow-up recommended. 2.5 x 2.3 x 3 cm solid echogenic lesion in the lower pole of the left kidney suggestive of a mass. 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 Follow-up CT or MRI of the kidneys with and without contrast recommended for further characterization. No renal calculi or hydronephrosis. BLADDER: The prostate gland protrudes into the base of the bladder. No bladder stone, mass or wall thickening seen. Bilateral ureteral jets are not demonstrated. Prevoid bladder volume is 223 mL. Postvoid bladder volume is 47.3 mL. ADDITIONAL FINDINGS: The prostate gland is enlarged measuring 5.2 x 6.7 x 5 cm, volume 92 mL. IMPRESSION: Normal right kidney. 2.5 x 2.3 x 3 cm echogenic solid mass in the lower pole of the left kidney. 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 Further characterization with CT or MR of the kidneys according to renal mass protocol with and without IV contrast recommended. Enlarged prostate gland that protrudes into the base of the bladder. 47 mL post void bladder residual. Assessment & Plan Assessment & Plan (1) Elevated PSA: Code(s): R97.20 - Elevated prostate specific antigen [PSA] Category: Medical (2) BPH loc w urin obs/LUTS: Code(s): N40.1 - Benign prostatic hyperplasia with lower urinary tract symptoms Category: Medical (3) Renal mass of unknown nature: Code(s): N28.89 - Other specified disorders of kidney and ureter Category: Medical Plan Continue Proscar 5 mg daily MRI abdomen renal mass protocol Orders: Orders AMB Urinalysis Automated Today Z13.9 - Encounter for screening, unspecified MR abdomen wo/w con Today N28.89 - Other specified disorders of kidney and ureter Medications: Refilled finasteride (Proscar) 5 mg PO DAILY 90 days 90 tabs 3RF C61 - Malignant neoplasm of prostate Coding Level of Care Code Est Pt Level 4 (22213) Diagnoses Elevated PSA R97.20 BPH loc w urin obs/LUTS N40.1 Renal mass of unknown nature N28.89
== END 2023-10-16 11:36 | disposition home or self-care (01) ==
PROVIDERS: PCP Family Medicine; Visit Provider Urology
DX: R97.20 Elevated prostate specific antigen [PSA] (principal); N40.1 Benign prostatic hyperplasia with lower urinary tract symptoms; N28.89 Other specified disorders of kidney and ureter; Z13.9 Encounter for screening, unspecified
CPT/HCPCS: 99214

== ENCOUNTER → 2023-10-16 10:59 | Outpatient (BNVA) | payer MEDICARE, SELFPAY | PROVIDERS: PCP Family Medicine; Visit Provider Urology | DX: R97.20 Elevated prostate specific antigen [PSA] (principal); N40.1 Benign prostatic hyperplasia with lower urinary tract symptoms; N13.8 Other obstructive and reflux uropathy; N28.89 Other specified disorders of kidney and ureter; Z79.899 Other long term (current) drug therapy | CPT/HCPCS: 81003; 99212 ==

== ENCOUNTER 2023-10-23 10:38 | Outpatient (AMB) | payer MEDICARE, SELFPAY ==
[2023-10-23 10:59] VITALS: BP 138/80; PULSE 74; RESP 15; TEMP 36.5; O2SAT 97; BMI 25.6
--- NOTE | 2023-10-23 10:59 | A.OFFPC_ITS ---
Vital Signs 10/23/23 10:59 Height 5 ft 8 in Weight 168 lb 4 oz BMI 25.6 BP 138/80 Blood Pressure Location Rt brachial Position Sitting Respiration 15 Pulse 74 Pulse Source Pulse Oximeter Temp 97.7 F Temp Source Temporal Artery Scan Pulse Oximetry (%) 97 Oxygen Delivery Method Room Air Intake Visit Reasons: f/u elevated fasting glucose, hypercholesterolemia Collections Rep Required: No Allergies Floxin Otic Allergy (Severe, Uncoded 10/23/23 11:05) Headache Medication List - Last Reconciled 10/23/23 by Ace Barton MD albuterol sulfate 2.5 mg (3 mL) inhalation BID 30 days albuterol sulfate 90 mcg/actuation 2 inhalations inhalation Q6H PRN 30 days finasteride (Proscar) 5 mg PO DAILY 90 days bfuaxefeqce-yuibklypp-lcnkvtcz 200-62.5-25 mcg (Trelegy Ellipta) 1 inh inhalation DAILY 30 days nebulizers As directed Tobacco use date assessed: 10/23/23 Fall risk assessment: No Falls in past year Last assessed Fall Risk: 10/23/23 Dental Screening Dental Screen Date: 10/23/23 Did you have a dental visit in the last 12 months?: No Did you have a dental problem in the last 6 months where you did not have access to dental care?: No Was dental information given to patient?: Yes HPI f/u elevated fasting glucose, hypercholesterolemia HPI Details 83 y/o male presents to f/u elevated fas ting glucose, hypercholesterolemia. No recent lipid panel to review. A1c today 10/23/23 is 6.0%. He notes he has been working on cutting back on the sweets in his diet. 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 care foreman to a significant other at home: No Do you presently have visiting nurse or other home services: No 75 years or older and lives alone: No Alcohol intake: current Alcohol intake frequency: 0-2 drinks per day Alcohol type: beer and wine Patient Tobacco Use Status: Former Tobacco user Tobacco use type: Cigarette Years Smoked: 9 years total e-Cigarette/Vaping Use: Never Used service: Yes ([employer] 6 years) Current occupational status: retired and other Current occupational exposures/hazards: No Sexual orientation: Straight/Heterosexual Gender identity: Male Cognitive needs: No Hearing needs: No Vision needs: Yes (Saw the eye doctor and avoids night driving) Questionnaire Thrive Questionnaire Date Thrive assessed: 05/03/23 MALIK-7 AMB Questionnaire MALIK-7 Date MALIK - 7 assessed: 05/03/23 Source: Developed by Drs. Vipin Albright, Ludmila Green, Modesto Thomas and colleagues, with an educational namita from [employer]. Review of Systems Const Denies chills, Denies fatigue, Denies fever(s), Denies headache(s) and Denies weakness ENT Denies dizziness and Denies headache(s) Card Denies dyspnea Resp Denies cough, Denies dyspnea, Denies wheezing and Denies other (shortness of breath) Musc Denies numbness and Denies tingling Neuro Denies dizziness, Denies headache(s), Denies numbness, Denies tingling and Denies weakness Psych Denies anxiety and Denies depression Endo Denies fatigue Aller/Immun Denies wheezing Physical exam (Primary Care) Vital Signs: Last Vital Signs Temp 97.7 F 10/23/23 10:59 Pulse 74 10/23/23 10:59 Resp 15 10/23/23 10:59 BP 138/80 10/23/23 10:59 Pulse Ox 97 10/23/23 10:59 Oxygen Delivery Method Room Air 10/23/23 10:59 BMI result Body Mass Index 25.6 Tobacco/Smoking Status: Tobacco use Status Tobacco use date assessed 10/23/23 10/23/23 11:07 Patient Tobacco Use Status Former Tobacco user 10/23/23 11:04 Tobacco use type Cigarette 10/23/23 11:04 e-Cigarette/Vaping Use Never Used 10/23/23 11:04 Thrive Assessment: Date of Thrive Assessment Date Thrive assessed 05/03/23 10/23/23 11:04 Const General: well developed; No acute distress Nutritional Appearance: well nourished Orientation/consciousness: patient oriented x3 [facility] Head: Yes normocephalic and Yes atraumatic Eyes General: appearance normal, both eyes and all related structures Pupils: Equal, round and reactive pupils present EOM: EOMs intact bilaterally Resp Effort & Inspection: normal respiratory effort Neuro General: patient oriented x3 and gait normal Cranial nerves: Yes Equal, round and reactive pupils present Psych Affect: normal affect Assessment and Plan Assessment & Plan (1) Hypercholesterolemia: Code(s): E78.00 - Pure hypercholesterolemia, unspecified Plan: Patient?has?not?had?his?labs?drawn?yet. He?will?get?his?labs?drawn?today?and?we?can?follow-up?at?his?next?visit. Has?had?elevated?lipids?past He?has?been?working?on?a?diet?lower?in?saturated?fats?and?cholesterol?and?exerci sing?and?has?lost?weight. (2) Renal mass of unknown nature: Code(s): N28.89 - Other specified disorders of kidney and ureter Plan: Ultrasound?imaging?report?by?radiologist?suggests?this?is?likely?an?angiomyolipo ma/benign?but?further?characterization?is?recommended. His?urologist?has?ordered?an?MRI?for?this. He?should?follow-up?with?urology?after?the?MRI?to?confirm. (3) Pre-diabetes: Code(s): R73.03 - Prediabetes Plan: A1c?6.0%;?pre?diabetes. We?discussed?that?he?will?work?on?a?diet?lower?in?sugars?including?sweets?and?fr uit?juices,?and?starches. Continue?weight?loss?and?exercise. Will?recheck?A1c?in?3?months Orders: Orders AMB Hemoglobin A1c Today R73.01 - Impaired fasting glucose Coding Level of Care Code Est Pt Level 4 (52525) Diagnoses Hypercholesterolemia E78.00 Renal mass of unknown nature N28.89 Pre-diabetes R73.03
== END 2023-10-23 12:14 | disposition home or self-care (01) ==
PROVIDERS: PCP Family Medicine; Visit Provider Family Medicine
DX: E78.00 Pure hypercholesterolemia, unspecified (principal); N28.89 Other specified disorders of kidney and ureter; R73.03 Prediabetes
CPT/HCPCS: 83036; 99214

== ENCOUNTER 2023-10-23 12:29 | Outpatient (REF) | payer MEDICARE, SELFPAY ==
[2023-10-23 14:28] LABS: MANUAL DIFF FLAG NO
[2023-10-23 14:36] LABS: Basophils Absolute Auto 0.1 X10*3/uL (0.0-0.2); Basophils Percent Auto 1.2 % (0-2); Eosinophils Absolute Auto 0.5 X10*3/uL (0.0-0.4); Eosinophils Percent Auto 8.3 % (0-4); Hematocrit 43.7 % (42.0-52.0); Hemoglobin 14.4 g/dl (14.0-18.0); Imm Gran Abs Auto 0.01 X10*3/uL (0.00-0.03); Imm Gran Pct Auto 0.2 % (0.0-0.4); Lymphocytes Absolute Auto 1.7 X10*3/uL (1.2-4.9); Lymphocytes Percent Auto 27.9 % (20-40); Mean Corpuscular Hemoglobin 31.4 pg (27.0-33.0); Mean Corpuscular Volume 95.4 fL (80.0-98.0); Monocytes Absolute Auto 0.5 X10*3/uL (0.1-1.2); Monocytes Percent Auto 8.5 % (2-11); Neutrophils Absolute Auto 3.2 x10*3/uL (2.0-8.3); Neutrophils Percent Auto 53.9 % (45-73); Platelet Count 213 X10*3/uL (160-400); Red Blood Count 4.58 X10*6/uL (4.60-5.80); Red Cell Distribution Width 13.3 % (11.0-16.0); White Blood Count 5.9 X10*3/uL (4.8-10.8)
[2023-10-23 15:00] LABS: Alanine Aminotransferase 21 U/L (0-40); Alkaline Phosphatase 70 U/L (39-117); Anion Gap 11 (12-20); Aspartate Amino Transferase 24 U/L (5-37); Bilirubin Total 1.2 mg/dL (0.0-1.0); Blood Urea Nitrogen 14 mg/dL (9-16); Calcium 9.2 mg/dL (8.4-10.2); Carbon Dioxide 26 mmol/L (22-29); Chloride 108 mmol/L (96-108); Cholesterol 188 mg/dL (<200); Estimated Glomerular Filt Rate > 60; Glucose Fasting 109 mg/dL (60-99); HDL Cholesterol 57 mg/dL (>40); LDL Cholesterol Calculated 116 mg/dL (<100); Potassium 4.7 mmol/L (3.3-5.1); Sodium 140 mmol/L (135-145); Total Protein 6.7 g/dL (6.5-8.0); Triglycerides 76 mg/dL (<150)
== END 2023-10-23 12:30 | disposition home or self-care (01) ==
LOC: HO.WFDLDS 12:29
PROVIDERS: Hospitalist; Visit Provider Family Medicine
DX: Z00.00 Encounter for general adult medical examination without abnormal findings (principal); D72.10 Eosinophilia, unspecified; R91.8 Other nonspecific abnormal finding of lung field; J44.9 Chronic obstructive pulmonary disease, unspecified; R73.01 Impaired fasting glucose
CPT/HCPCS: 36415; 80053; 80061; 85025

== ENCOUNTER 2023-11-24 10:42 | Outpatient (REF) | payer MEDICARE, SELFPAY ==
--- NOTE | ~2023-11-24 | MR_ITS ---
EXAMINATION: MR ABDOMEN WITHOUT AND WITH CONTRAST CLINICAL INFORMATION: Left renal lesion on prior ultrasound. COMPARISON: Ultrasound 07/17/2023. TECHNIQUE: MR abdomen was performed without and with use of 8 mL intravenous Gadavist gadolinium contrast. Postcontrast images are performed in multiphase dynamic sequences. Imaging was performed in 3 planes. FINDINGS: Evaluation is limited due to motion. LUNG BASES: No focal consolidation or pleural effusion. LIVER, GALLBLADDER, AND BILIARY TREE: The liver is normal in size, smooth in contour, and normal in signal. Subcentimeter simple cysts for instance in the inferior right hepatic lobe (14:46). No suspicious hepatic lesion or biliary ductal dilatation is present. The gallbladder is unremarkable with no evidence of gallbladder wall thickening, or obvious pericholecystic inflammatory changes. PANCREAS: Mild diffuse parenchymal atrophy. Scattered, up to 0.8 cm T2 bright cystic-appearing observations in the pancreas, in very close proximity with the main pancreatic duct, for example 0.8 cm lobulated and possibly septated observation in the proximal body (5:17) and 0.5 cm unilocular observation in the distal body/tail (5:18). No suspicious enhancement on postcontrast images although evaluation is limited due to motion. No main ductal dilatation. No peripancreatic inflammatory changes. SPLEEN: Normal. ADRENAL GLANDS: Normal. KIDNEYS AND URETERS: Simple-appearing 8 cm cyst in the lateral cortex of the left kidney, Bosniak 1, for which no imaging follow up is recommended. No suspicious renal lesion. No discrete MRI correlates with the abnormality described on prior ultrasound which may have corresponded to prominence of the renal sinus fat. Symmetric nephrograms. No hydronephrosis. No perinephric fat stranding. GASTROINTESTINAL TRACT: No bowel obstruction. No ascites or fluid collection. ABDOMINAL WALL: No significant hernia is appreciated. LYMPH NODES: No lymphadenopathy. VASCULAR: Normal caliber of the abdominal aorta. OSSEOUS STRUCTURES: No acute or aggressive-appearing osseous findings. MR/MR abdomen wo/w con IMPRESSION: 1. No suspicious renal lesion. No discrete MRI correlates with the abnormality described on prior ultrasound, which may have corresponded to prominence of the renal sinus fat. Out of precaution, a follow up renal ultrasound in 3-6 months is recommended. 2. Scattered up to 0.8 cm cystic observations in the pancreas in close proximity with the main duct, possibly representing sequela of chronic pancreatitis or small sidebranch IPMNs. Evaluation is somewhat incomplete in the absence of MRCP images and due to motion, though accounting for these limitations, no discrete high risk features are seen such as definite associated enhancement on postcontrast images nor main duct dilatation. Recommend follow-up with abdominal MRI pancreas protocol/MRCP in 6-12 months. Electronically signed by: Tiara Rider MD 01/01/2024 01:09 PM EDT
--- NOTE | ~2023-11-24 | XR_ITS ---
EXAMINATION: XR PRE-MRI SCREENING, TWO-VIEW SKULL CLINICAL INFORMATION: Pre-MRI to rule out metallic foreign body COMPARISON: None available. TECHNIQUE: Mackenzie and lateral views of the skull. FINDINGS: No radiopaque foreign body identified. Paranasal sinuses and mastoid air cells aerated. XR/XR pre mri screening IMPRESSION: No radiopaque foreign body identified on two-view skull.
[2023-11-24] MEDS: gadobutroL 10 ML VIAL IVPUSH (12:52)
== END 2023-11-24 10:43 | disposition home or self-care (01) ==
LOC: HO.MRI 10:42
PROVIDERS: PCP Family Medicine; Visit Provider Urology
DX: N28.89 Other specified disorders of kidney and ureter (principal)
CPT/HCPCS: 74183; A9585

== ENCOUNTER 2023-11-28 10:45 | Outpatient (REF) | payer MEDICARE, SELFPAY ==
--- NOTE | ~2023-11-28 | CT_ITS ---
EXAMINATION: CT CHEST WITHOUT CONTRAST CLINICAL INFORMATION: Nonspecific abnormality in the lungs COMPARISON: CT dated November 11, 2019 TECHNIQUE: Multidetector volumetric CT imaging of the chest was done. Axial MIP volume rendering provided. Sagittal and coronal reformatted images were obtained. This CT examination was performed using dose optimization techniques as appropriate, variously including the following: *Automated exposure control *Adjustment of mA and/or kV according to patient size (this includes techniques or standardized protocols for targeted exams where dose is matched to indication/reason for exam; i.e. extremities or head) *Use of iterative reconstruction technique DLP: 149 mGy-cm FINDINGS: Exam submitted for interpretation on 02/07/2024. LUNGS: There are a few scattered less than 4 mm pulmonary nodules and groundglass nodules in the right upper lobe, right lung base, and left lung base. Bilateral apical lung scarring more conspicuous in the right lung apex. No bronchiectasis. Honeycombing.. MEDIASTINUM: There are a few scattered prominent with fatty hilum lymph nodes. Calcified plaques in the thoracic aortic arch and its main branches. No gross aneurysm, thoracic aorta. No pericardial effusion.. CORONARY ARTERY CALCIFICATION: Calcified plaques in the coronary arteries. PLEURA: No pleural effusion. No pneumothorax. AXILLA: No lymphadenopathy. UPPER ABDOMEN: 7.5 cm exophytic cystic lesion, upper pole left kidney. OSSEOUS STRUCTURES: Multilevel spondylosis without acute fracture or listhesis. No lytic or blastic lesions. Degenerative changes in the glenohumeral joints. CT/CT chest wo IV con IMPRESSION: Stable nonspecific groundglass and solid subcentimeter pulmonary nodules. Fleischner guidelines were followed. Electronically signed by: Wyatt Mcneil MD 02/07/2024 11:08 AM EDT
== END 2023-11-28 10:46 | disposition home or self-care (01) ==
LOC: HO.CT 10:45
PROVIDERS: Visit Provider Hospitalist
DX: R91.8 Other nonspecific abnormal finding of lung field (principal)
CPT/HCPCS: 71250

== ENCOUNTER → 2023-11-28 10:46 | Outpatient (BNV) | payer MEDICARE, SELFPAY | PROVIDERS: Visit Provider Radiology Diagnostic Radiology | DX: R91.8 Other nonspecific abnormal finding of lung field (principal) | CPT/HCPCS: 71250 ==

== ENCOUNTER 2024-01-30 10:46 | Outpatient (AMB) | payer MEDICARE, SELFPAY ==
--- NOTE | 2024-01-30 10:58 | MHC.PC.OV ---
Vital Signs 01/30/24 11:02 Height 5 ft 8 in Weight 165 lb 8 oz BMI 25.2 BP 123/60 Blood Pressure Location Lt brachial Position Sitting Respiration 16 Pulse 76 Pulse Source Pulse Oximeter Temp 97.7 F Temp Source Temporal Artery Scan Pulse Oximetry (%) 94 Oxygen Delivery Method Room Air Intake Visit Reasons: F/U PRE-DIABETES/ LIPIDS Intake Note: f/u labs and DM Allergies Floxin Otic Allergy (Severe, Uncoded 01/30/24 11:00) Headache Tobacco use date assessed: 10/23/23 Dental Screening Dental Screen Date: 10/23/23 HPI F/U PRE-DIABETES/ LIPIDS HPI Details 83 y/o male presents to f/u pre-diabetes, lipids. Last A1c 10/23/23 6.0%. A1c today 01/30/24 is 6.1%. Labs drawn 10/23/23. Reviewed labs with pt. Elevated fasting glucose of 109. Triglycerides 76. TC 188. LDL 116. HDL 57. HPI Comments History of Present Illness Details Documentation assistance for Ace Barton MD, was provided by Yonathan Kevin,? Directional Survey Drafter on 01/30/2024 at 11:30 AM EST. I, Dr. Barton, have read, observed, and verified documentation. [facility] Medical History Headache Asthma Asthma-COPD overlap syndrome Eosinophilia Pulmonary nodules COPD (chronic obstructive pulmonary disease) Surgical History History of arthroscopic knee surgery History of appendectomy Family History Sister Intestinal cancer Brother Intestinal cancer Mother Intestinal cancer Social History Household Members: Spouse Caregiver staying overnight: No Housing: House Are you a primary care support representative to a significant other at home: No Do you presently have visiting nurse or other home services: No 75 years or older and lives alone: No Alcohol intake: current Alcohol intake frequency: 0-2 drinks per day Alcohol type: beer and wine Patient Tobacco Use Status: Former Tobacco user Tobacco use type: Cigarette Years Smoked: 9 years total e-Cigarette/Vaping Use: Never Used service: Yes ([employer] 6 years) Current occupational status: retired and other Current occupational exposures/hazards: No Sexual orientation: Straight/Heterosexual Gender identity: Male Cognitive needs: No Hearing needs: No Vision needs: Yes (Saw the eye doctor and avoids night driving) Questionnaire PHQ-9 Over the last 2 weeks, how often have you been bothered by any of the following problems? 1. Little interest or pleasure in doing things: not at all 2. Feeling down, depressed, or hopeless: not at all 5. Poor appetite or overeating: not at all 6. Feeling bad about yourself - or that you are a failure or have let yourself or your family down: not at all 7. Trouble concentrating on things, such as reading the newspaper or watching television: not at all 8. Moving or speaking so slowly that other people could have noticed. Or the opposite - being so fidgety or restless that you have been moving around a lot more than usual: not at all 9. Thoughts that you would be better off or of hurting yourself in some way: not at all Source: Developed by Drs. Vipin Albright, Ludmila Green, Modesto Thomas and colleagues, with an educational namita from [employer]. Thrive Questionnaire Date Thrive assessed: 01/30/24 I am a: Patient What is your living situation today?: I have a steady place to live Within the past 12 months, did the food you bought not last and you didn't have the money to get more?: Never true Within the past 12 months, did you worry whether your food would run out before you got money to buy more?: Never true Do you have trouble paying for medicines?: No Do you have trouble getting transportation to medical appointments?: No Do you have trouble paying your heating and electricity bill?: No Do you have trouble taking care of your child, family member or friend?: No Do you have trouble with day-to-day activities such as bathing, preparing meals, shopping, managing finances, etc.?: No Are you currently unemployed and looking for a job?: I choose not to answer this question Are you interested in more education?: I choose not to answer this question THRIVE Score: 0 MALIK-7 AMB Questionnaire MALIK-7 Date MALIK - 7 assessed: 05/03/23 Source: Developed by Drs. Vipin Albright, Ludmila Green, Modesto Thomas and colleagues, with an educational namita from [employer]. Review of Systems Const Denies chills, Denies fatigue, Denies fever(s), Denies headache(s) and Denies weakness ENT Denies dizziness and Denies headache(s) Card Denies dyspnea Resp Denies cough, Denies dyspnea, Denies wheezing and Denies other (shortness of breath) Musc Denies numbness and Denies tingling Neuro Denies dizziness, Denies headache(s), Denies numbness, Denies tingling and Denies weakness Psych Denies anxiety and Denies depression Endo Denies fatigue Aller/Immun Denies wheezing Physical exam (Primary Care) Vital Signs: Last Vital Signs Temp 97.7 F 01/30/24 11:02 Pulse 76 01/30/24 11:02 Resp 16 01/30/24 11:02 BP 123/60 01/30/24 11:02 Pulse Ox 94 01/30/24 11:02 Oxygen Delivery Method Room Air 01/30/24 11:02 BMI result Body Mass Index 25.2 Tobacco/Smoking Status: Tobacco use Status Tobacco use date assessed 10/23/23 01/30/24 11:09 Patient Tobacco Use Status Former Tobacco user 01/30/24 11:09 Tobacco use type Cigarette 01/30/24 11:09 e-Cigarette/Vaping Use Never Used 01/30/24 11:09 Thrive Assessment: Date of Thrive Assessment Date Thrive assessed 01/30/24 01/30/24 11:09 Const General: well developed; No acute distress Nutritional Appearance: well nourished Orientation/consciousness: patient oriented x3 HENMT Head: Yes normocephalic and Yes atraumatic Eyes General: appearance normal, both eyes and all related structures Pupils: Equal, round and reactive pupils present EOM: EOMs intact bilaterally Resp Effort & Inspection: normal respiratory effort Neuro General: patient oriented x3 and gait normal Cranial nerves: Yes Equal, round and reactive pupils present Psych Affect: normal affect Coding Level of Care Code Est Pt Level 3 (32658) Diagnoses Pre-diabetes R73.03 Hypercholesterolemia E78.00 Pancreatic abnormality Q45.3 Screening for colon cancer Z12.11 Assessment & Plan Assessment & Plan (1) Pre-diabetes: Code(s): R73.03 - Prediabetes Category: Medical Plan: A1c?6.1%. Still?in?pre?diabetes?range Encouraged?diet?lower?in?sugars?and?starches (2) Hypercholesterolemia: Code(s): E78.00 - Pure hypercholesterolemia, unspecified Category: Medical Plan: LDL?cholesterol?has?improved though?is?still?above?goal?of?less?than?100. 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 MRI?shows?no?suspicious?lesions?in?the?kidneys?and?he?can?follow-up?with?urology?regarding?this. However,?MRI?also?showed?incidental, likely?cysts?in?his?pancreas and?recommended?MRI?follow-up?in?3-6?months. Patient?also?has?strong?family?history?of?colon?cancer?and?is?overdue?for?colon?cancer?screening?so?I?am?referring?him?to?Gastroenterology?for?these. 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
[2024-01-30 11:02] VITALS: BP 123/60; PULSE 76; RESP 16; TEMP 36.5; O2SAT 94; BMI 25.2
== END 2024-01-30 11:46 | disposition home or self-care (01) ==
PROVIDERS: PCP Family Medicine; Visit Provider Family Medicine
DX: R73.03 Prediabetes (principal)

== ENCOUNTER → 2024-01-30 10:46 | Outpatient (BNVA) | payer MEDICARE, SELFPAY | PROVIDERS: PCP Family Medicine; Visit Provider Family Medicine | DX: R73.03 Prediabetes (principal); E78.00 Pure hypercholesterolemia, unspecified; Q45.3 Other congenital malformations of pancreas and pancreatic duct; Z80.0 Family history of malignant neoplasm of digestive organs | CPT/HCPCS: 83036; 99212 ==

== ENCOUNTER 2024-03-06 13:04 | Outpatient (AMB) | payer MEDICARE, SELFPAY ==
--- NOTE | 2024-03-06 10:42 | MHC.OFFVIS ---
Intake Visit Reasons: 7w/MRI Intake Note: Patient is present for 7w/MRI Urology Medication:FINASTERIDE Antibiotic Allergy:NONE Blood Thinner:NONE Drag Out Man Required: No Allergies Floxin Otic Allergy (Severe, Uncoded 03/06/24 13:06) Headache HPI Comments Details: 03/06/24--FU FI-[id number]-[id number] mass protocol. 11/24/23--MR-KIDNEYS AND URETERS: Simple-appearing 8 cm cyst in the lateral cortex of the left kidney, Bosniak 1, for which no imaging follow up is recommended. No suspicious renal lesion. No discrete MRI correlates with the abnormality described on prior ultrasound which may have corresponded to prominence of the renal sinus fat. Plan renal US in 6 months Review of chart: 10/16/2023--'s being followed for BPH and elevated PSA. He is prescribed Proscar. He had PSA done on 10/02/23, results 2.31, the patient had a renal ultrasound performed on 07/17/2023 there is a small echogenic lesion 2.5 cm which may represent angiomyolipoma however further imaging is necessary to rule out a solid mass. I have discussed further evaluation with MRI renal mass protocol. Will cont proscar daily. 06/16/23-- is an 83-year-old male who is here for evaluation for elevated PSA Past Medical history Asthma-COPD overlap syndrome, Eosinophilia, Pulmonary nodules; Surgical History--History of arthroscopic knee surgery, History of appendectomy The patient had a PSA done on 05/03/2023--4.51 ng/mL and on 05/10/2023 was 5.13 ng/mL The AUA symptom score is 15. Some hesitancy nocturia x1. History of tobacco use. Prostate Exam: Smooth no hard nodules palpated, enlarged. UA--leukocytes negative, blood negative PFSH Medical History Headache Asthma Asthma-COPD overlap syndrome Eosinophilia Pulmonary nodules COPD (chronic obstructive pulmonary disease) Surgical History History of arthroscopic knee surgery History of appendectomy Family History Sister Intestinal cancer Brother Intestinal cancer Mother Intestinal cancer Social History Household Members: Spouse Caregiver staying overnight: No Housing: House Are you a primary home health aide caregiver to a significant other at home: No Do you presently have visiting nurse or other home services: No 75 years or older and lives alone: No Alcohol intake: current Alcohol intake frequency: 0-2 drinks per day Alcohol type: beer and wine Patient Tobacco Use Status: Former Tobacco user Tobacco use type: Cigarette Years Smoked: 9 years total e-Cigarette/Vaping Use: Never Used service: Yes ([employer] 6 years) Current occupational status: retired and other Current occupational exposures/hazards: No Sexual orientation: Straight/Heterosexual Gender identity: Male Cognitive needs: No Hearing needs: No Vision needs: Yes (Saw the eye doctor and avoids night driving) Telehealth Telehealth Telehealth Platform: [employer] Location of provider rendering services: practice address Location of patient: address on file Patient Identification confirmed using: Name, : Yes Telehealth method: voice only Patient verbally consented to treatment: Yes Patient verbally consented to billing insurance company: Yes Patient informed of any privacy concerns related to visit: Yes Minutes spent on Phone/Video with Pt.: 15 Results Reviewed Results Reviewed: Date of Service: 11/24/23 EXAMINATION: MR ABDOMEN WITHOUT AND WITH CONTRAST CLINICAL INFORMATION: Left renal lesion on prior ultrasound. COMPARISON: Ultrasound 07/17/2023. TECHNIQUE: MR abdomen was performed without and with use of 8 mL intravenous Gadavist gadolinium contrast. Postcontrast images are performed in multiphase dynamic sequences. Imaging was performed in 3 planes. FINDINGS: Evaluation is limited due to motion. LUNG BASES: No focal consolidation or pleural effusion. LIVER, GALLBLADDER, AND BILIARY TREE: The liver is normal in size, smooth in contour, and normal in signal. Subcentimeter simple cysts for instance in the inferior right hepatic lobe (14:46). No suspicious hepatic lesion or biliary ductal dilatation is present. The gallbladder is unremarkable with no evidence of gallbladder wall thickening, or obvious pericholecystic inflammatory changes. PANCREAS: Mild diffuse parenchymal atrophy. Scattered, up to 0.8 cm T2 bright cystic-appearing observations in the pancreas, in very close proximity with the main pancreatic duct, for example 0.8 cm lobulated and possibly septated observation in the proximal body (5:17) and 0.5 cm unilocular observation in the distal body/tail (5:18). No suspicious enhancement on postcontrast images although evaluation is limited due to motion. No main ductal dilatation. No peripancreatic inflammatory changes. SPLEEN: Normal. ADRENAL GLANDS: Normal. KIDNEYS AND URETERS: Simple-appearing 8 cm cyst in the lateral cortex of the left kidney, Bosniak 1, for which no imaging follow up is recommended. No suspicious renal lesion. No discrete MRI correlates with the abnormality described on prior ultrasound which may have corresponded to prominence of the renal sinus fat. Symmetric nephrograms. No hydronephrosis. No perinephric fat stranding. GASTROINTESTINAL TRACT: No bowel obstruction. No ascites or fluid collection. ABDOMINAL WALL: No significant hernia is appreciated. LYMPH NODES: No lymphadenopathy. VASCULAR: Normal caliber of the abdominal aorta. OSSEOUS STRUCTURES: No acute or aggressive-appearing osseous findings. IMPRESSION: 1. No suspicious renal lesion. No discrete MRI correlates with the abnormality described on prior ultrasound, which may have corresponded to prominence of the renal sinus fat. Out of precaution, a follow up renal ultrasound in 3-6 months is recommended. 2. Scattered up to 0.8 cm cystic observations in the pancreas in close proximity with the main duct, possibly representing sequela of chronic pancreatitis or small sidebranch IPMNs. Evaluation is somewhat incomplete in the absence of MRCP images and due to motion, though accounting for these limitations, no discrete high risk features are seen such as definite associated enhancement on postcontrast images nor main duct dilatation. Recommend follow-up with abdominal MRI pancreas protocol/MRCP in 6-12 months. Date of Service: 07/17/23 Procedure(s): US retroperitoneal comp EXAMINATION: US RETROPERITONEAL COMPLETE (RENAL) CLINICAL INFORMATION: Benign prostatic hyperplasia with lower urinary tract symptoms. COMPARISON: None available. TECHNIQUE: Real-time imaging of the kidneys and bladder. FINDINGS: RIGHT KIDNEY: 9.1 x 5.8 x 5.5 cm (SAG x AP x TRV). The kidney is normal in size, contour, and echogenicity. Renal cortical thickness is normal. No calculi or focal parenchymal lesions. No hydronephrosis. LEFT KIDNEY: 12.4 x 5.2 x 6.2 cm (SAG x AP x TRV). The kidney is normal in size, contour, and echogenicity. Renal cortical thickness is normal. 7 cm cyst exophytic to the upper pole. This is minimally complex with single thin septation. No imaging follow-up recommended. 2.5 x 2.3 x 3 cm solid echogenic lesion in the lower pole of the left kidney suggestive of a mass. 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 Follow-up CT or MRI of the kidneys with and without contrast recommended for further characterization. No renal calculi or hydronephrosis. BLADDER: The prostate gland protrudes into the base of the bladder. No bladder stone, mass or wall thickening seen. Bilateral ureteral jets are not demonstrated. Prevoid bladder volume is 223 mL. Postvoid bladder volume is 47.3 mL. ADDITIONAL FINDINGS: The prostate gland is enlarged measuring 5.2 x 6.7 x 5 cm, volume 92 mL. IMPRESSION: Normal right kidney. 2.5 x 2.3 x 3 cm echogenic solid mass in the lower pole of the left kidney. 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 Further characterization with CT or MR of the kidneys according to renal mass protocol with and without IV contrast recommended. Enlarged prostate gland that protrudes into the base of the bladder. 47 mL post void bladder residual. Assessment & Plan Assessment & Plan (1) Abnormal ultrasound of kidney: Code(s): R93.429 - Abnormal radiologic findings on diagnostic imaging of unspecified kidney Category: Medical Plan renal US in 6 months Orders: Orders US renal BI 6 Months R93.429 - Abnormal radiologic findings on diagnostic imaging of unspecified kidney Patient Instructions: The patient had an opportunity to ask questions regarding treatment plan. The patient expressed understanding and agreement with the above treatment plan. The patient is aware they should contact our office by phone for worsening of their current condition or the appearance of new symptoms. Compliance is encouraged with any medications and followup testing that is ordered. It is a privilege to be allowed the opportunity to participate in the urologic care of your patient. If you have any questions or concerns regarding treatment for the above conditions please do not hesitate to contact me. The office telephone contact is [phone]. This note is constructed in part using voice recognition software. While every effort has been made to ensure accuracy wildlife conservation professor errors may have been included. Yours sincerely, Billy Self MD Coding Level of Care Code Tele Est Pt Level 3 (37844) Diagnoses Abnormal ultrasound of kidney R93.429
== END 2024-03-06 15:32 | disposition home or self-care (01) ==
LOC: HO.HUSH 13:04
PROVIDERS: PCP Family Medicine; Visit Provider Urology
DX: R93.429 Abnormal radiologic findings on diagnostic imaging of unspecified kidney (principal)
CPT/HCPCS: 99442

== ENCOUNTER 2024-03-11 09:44 | Outpatient (AMB) | payer MEDICARE, SELFPAY ==
[2024-03-11 09:48] VITALS: BP 124/78; PULSE 58; O2SAT 96; BMI 25.7
--- NOTE | 2024-03-11 09:48 | A.OFFVIS_ITS ---
Vital Signs 03/11/24 09:48 Height 5 ft 8 in Weight 169 lb BMI 25.7 BP 124/78 Blood Pressure Location Lt brachial Position Sitting Pulse 58 Pulse Source Doppler Pulse Oximetry (%) 96 Oxygen Delivery Method Room Air Intake Visit Reasons: COPD Allergies Floxin Otic Allergy (Severe, Uncoded 03/06/24 13:06) Headache HPI Comments Details: The patient is a 83-year-old gentleman with a known history of asthma COPD overlap syndrome in addition to pulmonary nodules. 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 During that time was exposed to significant dust from surrounding tiles in route. He started feeling under the weather once he arrived to [facility]. Started developing worsening respiratory symptoms he was taken to the hospital. There he had an x-ray which was without any acute disease in he was placed on antibiotics and also prednisone. His symptoms not improve and actually worsen in the cold the on-call doctor to visit him in his room. He actually required 2 visits. His medications were increased both prednisone and was given a course of Augmentin. He was also given a short- acting beta agonist that he did not bring with him. Now the patient is better. He did have significant weight loss. We did have him get a CT scan of the chest back in November 2018 demonstrating pulmonary nodules compared to his previous CAT scan. 02/28/2023 the patient is here for pulmonary follow-up visit. Overall doing better. He is taking the Trelegy more. He still getting short of breath with activity. He is on the treadmill for about a mallet have and is also using the bike for about a mi and a half. Tolerates this well he is also working outside. She we did talk about the significant eosinophilia. The patient will be a great candidate for al 5 inhibitors. 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 He will likely even be able to come off some of the inhalers. However, the patient is not ready for shots as of yet. I did give him information about it. He will consider. Will discuss it further in 6 months. He knows to use his inhaler more regularly to avoid any worsening symptoms. 09/05/2023 the patient is here for a pulmonary follow-up visit. He is responding well to the Trelegy inhaler. Still having episodes of coughing shortness of breath. Whwd-lc-utdavmob severity. He has been working outside going to mouth. The patient does have a history pulmonary nodules. The last time they did were visualized was back in 2019. He should really have a repeat CT scan to address the pulmonary nodules and make sure they are stable. He also had a chest x-ray back in 2020 demonstrating hyperinflated lungs. The patient will continue taking the Trelegy. The patient will return in the fall after having a CT scan of the chest. If he has any worsening symptoms or any other concerning symptoms she should call for an earlier assessment. 03/11/2024 the patient is here for a pulmonary follow-up visit. The patient overall has been doing okay. He is not always using the Trelegy inhaler. He notices some increased dyspnea on exertion. Also some chest daily some coughing. Aoqi-ia-nlosakdn severity. Explained to him the importance of using his maintenance inhaler. He is going to try to use it more regularly. He also has a rescue inhaler that he can use as needed. Is exercising at the gym. In regards of imaging studies the patient did undergo CT scan of the chest which I personally reviewed from 11/28/2023. He has multiple pulmonary nodules but he does have a 6 mm to 8 mm subsolid pulmonary nodule. Therefore plan to repeat a CT scan again in November of 2024 a year from his last CT scan. Will follow-up after his CT scan. [facility] Medical History Headache Asthma Asthma-COPD overlap syndrome Eosinophilia Pulmonary nodules COPD (chronic obstructive pulmonary disease) Surgical History History of arthroscopic knee surgery History of appendectomy Family History Sister Intestinal cancer Brother Intestinal cancer Mother Intestinal cancer Social History Household Members: Spouse Caregiver staying overnight: No Housing: House Are you a primary managed care analyst to a significant other at home: No Do you presently have visiting nurse or other home services: No 75 years or older and lives alone: No Alcohol intake: current Alcohol intake frequency: 0-2 drinks per day Alcohol type: beer and wine Patient Tobacco Use Status: Former Tobacco user Tobacco use type: Cigarette Years Smoked: 9 years total e-Cigarette/Vaping Use: Never Used service: Yes ([employer] 6 years) Current occupational status: retired and other Current occupational exposures/hazards: No Sexual orientation: Straight/Heterosexual Gender identity: Male Cognitive needs: No Hearing needs: No Vision needs: Yes (Saw the eye doctor and avoids night driving) Review of Systems Const Denies night sweats ENT Denies lip swelling and Denies tongue swelling Card Denies chest pain and Reports dyspnea on exertion Resp Reports cough, Reports dyspnea on exertion and Reports wheezing GI Denies abdominal pain Musc Denies no additional complaints Neuro Denies Neuro-related abnormal movements Psych Denies no additional complaints Mele/Lymph Denies easy bleeding and Denies lymphadenopathy Aller/Immun Denies lip swelling, Denies tongue swelling and Reports wheezing Physical Exam Vital Signs: Last Vital Signs Pulse 58 03/11/24 09:48 BP 124/78 03/11/24 09:48 Pulse Ox 96 03/11/24 09:48 Oxygen Delivery Method Room Air 03/11/24 09:48 BMI result Body Mass Index 25.7 Const General: alert Neck Neck: Yes normal visual inspection, Yes full ROM and Yes no lymphadenopathy Chest Chest palpation & inspection: normal inspection of the chest Resp Effort & Inspection: normal respiratory effort Auscultation: wheezes and diminished lung sounds Cardio Rate: regular rate Rhythm: regular rhythm Heart sounds: S1 normal heart sound present and S2 normal heart sound present GI Palpation (GI): Soft to palpation and nontender Auscultation: normal bowel sounds Skin General skin exam: rashes and/or lesions noted Immunizations pneumoc 20-radha conj-dip cr(PF) 0.5 mL IM syringe Performing Provider: Shoaib Byrne MD Performing Location: [facility] Pul[facility] Administered by: Ivanna Woodard LPN on 03/11/24 10:20 Dose Route Admin Location Dispensed Lot Number Expiration Date NDC Risk Lead 0.5 mL IM Left Deltoid 0.5 mL [id number] 05/10/25 4456-4160-95 [employer] VIS Given Date VIS Provided VIS Publication Date 03/11/24 Single Vaccine 22 Eligibility Eligibility Date Funding Source Not [facility] Eligible 03/11/24 Private Assessment & Plan Assessment & Plan (1) Asthma-COPD overlap syndrome: Code(s): J44.9 - Chronic obstructive pulmonary disease, unspecified Category: Medical (2) Pulmonary nodules: Code(s): R91.8 - Other nonspecific abnormal finding of lung field Category: Medical (3) Eosinophilia: Code(s): D72.10 - Eosinophilia, unspecified Category: Medical Qualifiers: Eosinophilia type: other eosinophilia Qualified Code(s): D72.19 - Other eosinophilia Plan -continue Trelegy 200 daily -continue Singular -Short-acting beta agonist as needed and also 15 minutes before exercise or extraneous activity -Consider Biologic therapy with Fasenra if continues to be symptomatic. Would need to repeat bloodwork if that is the case -CT chest 11/2024 -follow-up in 6-8 months Orders: Orders CT chest wo IV con 11/25/24 R91.8 - Other nonspecific abnormal finding of lung field Pneumococcal 20 Immunization Today Z23 - Encounter for immunization Medications: Refilled undtlhothhm-naxcmaeky-bhreprjw 200-62.5-25 mcg (Trelegy Ellipta) 1 inh inhalation DAILY 60 ea 12RF 30 days Coding Level of Care Code Est Pt Level 4 (17566) Diagnoses Asthma-COPD overlap syndrome J44.9 Pulmonary nodules R91.8 Other eosinophilia D72.19 Eosinophilia type: other eosinophilia Time Spent (min) 17
--- NOTE | 2024-03-11 10:20 | A.OFFVIS_ITS ---
Vital Signs 03/11/24 09:48 Height 5 ft 8 in Weight 76.657 kg BMI 25.7 BP 124/78 Blood Pressure Location Lt brachial Position Sitting Pulse 58 Pulse Source Doppler Pulse Oximetry (%) 96 Oxygen Delivery Method Room Air Intake Visit Reasons: COPD Allergies Floxin Otic Allergy (Severe, Uncoded 03/06/24 13:06) Headache PFSH Medical History Headache Asthma Asthma-COPD overlap syndrome Eosinophilia Pulmonary nodules COPD (chronic obstructive pulmonary disease) Surgical History History of arthroscopic knee surgery History of appendectomy Family History Sister Intestinal cancer Brother Intestinal cancer Mother Intestinal cancer Social History Household Members: Spouse Caregiver staying overnight: No Housing: House Are you a primary resident care spec to a significant other at home: No Do you presently have visiting nurse or other home services: No 75 years or older and lives alone: No Alcohol intake: current Alcohol intake frequency: 0-2 drinks per day Alcohol type: beer and wine Patient Tobacco Use Status: Former Tobacco user Tobacco use type: Cigarette Years Smoked: 9 years total e-Cigarette/Vaping Use: Never Used service: Yes ([employer] 6 years) Current occupational status: retired and other Current occupational exposures/hazards: No Sexual orientation: Straight/Heterosexual Gender identity: Male Cognitive needs: No Hearing needs: No Vision needs: Yes (Saw the eye doctor and avoids night driving) Physical Exam Vital Signs: Last Vital Signs Pulse 58 03/11/24 09:48 BP 124/78 03/11/24 09:48 Pulse Ox 96 03/11/24 09:48 Oxygen Delivery Method Room Air 03/11/24 09:48 BMI result Body Mass Index 25.7 Immunizations pneumoc 20-radha conj-dip cr(PF) 0.5 mL IM syringe Performing Provider: Shoaib Byrne MD [place] [facility] Administered by: Ivanna Woodard LPN on 03/11/24 10:20 Dose Route Admin Location Dispensed Lot Number Expiration Date [facility] Occupational Therapy Co Director 0.5 mL IM Left Deltoid 0.5 mL [id number] 05/10/25 6729-1463-77 [employer] VIS Given Date VIS Provided VIS Publication Date 03/11/24 Single Vaccine 22 Eligibility Eligibility Date Funding Source Not VF Eligible 03/11/24 Private Quality Reporting (2019) Adult ([facility] 138/06/01/68) Body Mass Index: 25.7 Assessment & Plan Assessment & Plan (1) Asthma-COPD overlap syndrome: Code(s): J44.9 - Chronic obstructive pulmonary disease, unspecified Category: Medical (2) Pulmonary nodules: Code(s): R91.8 - Other nonspecific abnormal finding of lung field Category: Medical (3) Eosinophilia: Code(s): D72.10 - Eosinophilia, unspecified Category: Medical Qualifiers: Eosinophilia type: other eosinophilia Qualified Code(s): D72.19 - Other eosinophilia Orders: Orders CT chest wo IV con 11/25/24 R91.8 - Other nonspecific abnormal finding of lung field Pneumococcal 20 Immunization Today Z23 - Encounter for immunization Medications: New pneumoc 20-radha conj-dip cr(PF) 0.5 mL IM ONCE 0.5 mL 0RF Z23 - Encounter for immunization Refilled adptplwsslt-aymmnytzq-wmytttnb 200-62.5-25 mcg (Trelegy Ellipta) 1 inh inhalation DAILY 60 ea 12RF 30 days Coding Diagnoses Asthma-COPD overlap syndrome J44.9 Pulmonary nodules R91.8 Other eosinophilia D72.19 Eosinophilia type: other eosinophilia
== END 2024-03-11 10:19 | disposition home or self-care (01) ==
PROVIDERS: PCP Family Medicine; Visit Provider Hospitalist
DX: J44.9 Chronic obstructive pulmonary disease, unspecified (principal); R91.8 Other nonspecific abnormal finding of lung field; D72.19 Other eosinophilia; Z23 Encounter for immunization
CPT/HCPCS: 99214

== ENCOUNTER → 2024-03-11 09:44 | Outpatient (BNVA) | payer MEDICARE, SELFPAY | PROVIDERS: PCP Family Medicine; Visit Provider Hospitalist | DX: J44.89 Other specified chronic obstructive pulmonary disease (principal); J82.83 Eosinophilic asthma; R91.8 Other nonspecific abnormal finding of lung field; Z23 Encounter for immunization | CPT/HCPCS: 90471; 90677; 99212 ==

== ENCOUNTER 2024-05-01 11:42 | Outpatient (AMB) | payer MEDICARE, SELFPAY ==
--- NOTE | 2024-05-01 12:23 | A.OFFPC_ITS ---
Vital Signs 05/01/24 12:30 Height 5 ft 8 in Weight 169 lb 6 oz BMI 25.8 BP 138/90 H Blood Pressure Location Rt brachial Position Sitting Respiration 14 Pulse 78 Pulse Source Pulse Oximeter Temp 97.3 F Temp Source Oral Pulse Oximetry (%) 93 Oxygen Delivery Method Room Air Intake Visit Reasons: f/u pre-diabetes, chronic conditions Intake Note: f/u pre-dm pt was seen at urgent care for respiratory infection and has completed azithromycin. pt still having trouble breathing Allergies Floxin Otic Allergy (Severe, Uncoded 03/06/24 13:06) Headache Tobacco use date assessed: 10/23/23 Dental Screening Dental Screen Date: 10/23/23 HPI f/u pre-diabetes, chronic conditions HPI Details 84 y/o male presents to f/u pre-diabetes , chronic conditions. A1c today 05/01/24 6.0% and has improved. Had made a referral to GI for pancreatic abnormalities. [facility] Medical History Headache Asthma Asthma-COPD overlap syndrome Eosinophilia Pulmonary nodules COPD (chronic obstructive pulmonary disease) Surgical History History of arthroscopic knee surgery History of appendectomy Family History Sister Intestinal cancer Brother Intestinal cancer Mother Intestinal cancer Social History Household Members: Spouse Caregiver staying overnight: No Housing: House Are you a primary healthcare administration intern to a significant other at home: No Do you presently have visiting nurse or other home services: No 75 years or older and lives alone: No Alcohol intake: current Alcohol intake frequency: 0-2 drinks per day Alcohol type: beer and wine Patient Tobacco Use Status: Former Tobacco user Tobacco use type: Cigarette Years Smoked: 9 years total e-Cigarette/Vaping Use: Never Used service: Yes ([employer] 6 years) Current occupational status: retired and other Current occupational exposures/hazards: No Sexual orientation: Straight/Heterosexual Gender identity: Male Cognitive needs: No Hearing needs: No Vision needs: Yes (Saw the eye doctor and avoids night driving) Questionnaire PHQ-9 Over the last 2 weeks, how often have you been bothered by any of the following problems? 2. Feeling down, depressed, or hopeless: not at all 3. Trouble falling or staying asleep, or sleeping too much: not at all 4. Feeling tired or having little energy: not at all 5. Poor appetite or overeating: not at all 6. Feeling bad about yourself - or that you are a failure or have let yourself or your family down: not at all 7. Trouble concentrating on things, such as reading the newspaper or watching television: not at all 8. Moving or speaking so slowly that other people could have noticed. Or the opposite - being so fidgety or restless that you have been moving around a lot more than usual: not at all 9. Thoughts that you would be better off or of hurting yourself in some way: not at all Source: Developed by Drs. Vipin Albright, Ludmila Green, Modesto Thomas and colleagues, with an educational namita from [employer]. Thrive Questionnaire Date Thrive assessed: 04/28/24 I am a: Patient What is your living situation today?: I have a steady place to live Within the past 12 months, did the food you bought not last and you didn't have the money to get more?: Never true Within the past 12 months, did you worry whether your food would run out before you got money to buy more?: Never true Do you have trouble paying for medicines?: No Do you have trouble getting transportation to medical appointments?: No Do you have trouble paying your heating and electricity bill?: No Do you have trouble taking care of your child, family member or friend?: No Do you have trouble with day-to-day activities such as bathing, preparing meals, shopping, managing finances, etc.?: No Are you currently unemployed and looking for a job?: No Are you interested in more education?: No Please select the resources that you would like help with: None Currently or been in a relationship where the following occur: No concerns reported THRIVE Score: 0 AUDIT C Alcohol Use Questionnaire (AUDIT-C) 1. How often do you have a drink containing alcohol?: Never 2. How many drinks containing alcohol do you have on a typical day when you are drinking?: 1 or 2 3. How often do you have six or more drinks on one occasion?: Never Total Score: 0 MALIK-7 AMB Questionnaire MALIK-7 Date MALIK - 7 assessed: 05/03/23 Feeling nervous, anxious, or on edge: 0 = Not at all Not being able to stop or control worryin = Not at all Worrying too much about different things: 0 = Not at all Trouble relaxin = Not at all Being so restless that it is hard to sit still: 0 = Not at all Becoming easily annoyed or irritable: 0 = Not at all Feeling afraid as if something awful might happen: 0 = Not at all Total MALIK-7 score (0-4 normal; 5-9 mild; 10-14 moderate; 15-21 severe): 0 Source: Developed by Drs. Vipin Albright, Ludmila Green, Modesto Thomas and colleagues, with an educational namita from [employer]. Physical exam (Primary Care) Vital Signs: Last Vital Signs Temp 97.3 F 05/01/24 12:30 Pulse 78 05/01/24 12:30 Resp 14 05/01/24 12:30 BP 138/90 H 05/01/24 12:30 Pulse Ox 93 05/01/24 12:30 Oxygen Delivery Method Room Air 05/01/24 12:30 BMI result Body Mass Index 25.8 Tobacco/Smoking Status: Tobacco use Status Tobacco use date assessed 10/23/23 05/01/24 12:26 Patient Tobacco Use Status Former Tobacco user 05/01/24 12:26 Tobacco use type Cigarette 05/01/24 12:26 e-Cigarette/Vaping Use Never Used 05/01/24 12:26 Thrive Assessment: Date of Thrive Assessment Date Thrive assessed 04/28/24 05/01/24 12:26 Currently or been in a relationship where the following occur: No concerns reported Coding Level of Care Code Est Pt Level 4 (67335) Diagnoses Pre-diabetes R73.03 Pancreatic abnormality Q45.3 Screening for colon cancer Z12.11 Cough R05.9 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 Patient?had?declined?the?appointment?at?that?time?but?will?call?GI?back (3) Screening for colon cancer: Code(s): Z12.11 - Encounter for screening for malignant neoplasm of colon Category: Medical Plan: As?above,?patient?will?call?Gastroenterology?for appointment (4) Cough: Code(s): R05.9 - Cough, unspecified Category: Medical Plan: Ongoing?chest?congestion?with?cough?and?shortness?of?breath?and?wheezing. Patient?had?gone?to?urgent?care?and?was?given?a?Z- Jonn?which?was?improving?his?symptoms. Patient?is?now?out?of?azithromycin. I?will?extend?antibiotic?treatment?and?also?give?a?prednisone?taper. Will?also?check?chest?x- ray?as?has?significant?adventitious?sounds?throughout?right?lung?kong. (5) COPD (chronic obstructive pulmonary disease): Code(s): J44.9 - Chronic obstructive pulmonary disease, unspecified Category: Medical Qualifiers: COPD type: COPD with acute lower respiratory infection Qualified Code(s): J44.0 - Chronic obstructive pulmonary disease with (acute) lower respiratory infection Plan: As Above Plan Ongoing?cough?and Orders: Orders XR chest 2V Today R05.9 - Cough, unspecified Medications: New azithromycin (Zithromax Z-Jonn) take 500 mg today (day 1), then 250 mg for 4 days (days 2-5) PO 6 tabs 0RF 5 days prednisone 4 tabs daily for 4 days, 3 tabs daily for 2 days, 2 tabs daily for 2 days, 1 tab daily for 2 days PO daily; 28 tabs 0RF 10 days
[2024-05-01 12:30] VITALS: BP 138/90; PULSE 78; RESP 14; TEMP 36.3; O2SAT 93; BMI 25.8
== END 2024-05-01 13:10 | disposition home or self-care (01) ==
PROVIDERS: PCP Family Medicine; Visit Provider Family Medicine
DX: R73.03 Prediabetes (principal); Q45.3 Other congenital malformations of pancreas and pancreatic duct; J44.0 Chronic obstructive pulmonary disease with (acute) lower respiratory infection; Z12.11 Encounter for screening for malignant neoplasm of colon; R05.9 Cough, unspecified

== ENCOUNTER 2024-05-01 13:39 | Outpatient (REF) | payer MEDICARE, SELFPAY ==
--- NOTE | ~2024-05-01 | XR_ITS ---
EXAMINATION: XR CHEST CLINICAL INFORMATION: R05.9 - Cough, unspecified COMPARISON: 09/01/2020. CT chest 11/28/2023. TECHNIQUE: 2 views of the chest were obtained. FINDINGS: The cardiac, hilar, and mediastinal contours are normal. Aorta is mildly tortuous. The lungs are mildly hyperaerated, however clear bilaterally. There is no pneumothorax or pleural effusion. There is no focal osseous or soft tissue abnormality. Mild spinal degenerative changes. XR/XR chest 2V IMPRESSION: No active pulmonary disease. Electronically signed by: Xavier Thakkar MD 05/01/2024 02:11 PM [facility]
== END 2024-05-01 13:40 | disposition home or self-care (01) ==
LOC: HO.XRAY 13:39
PROVIDERS: PCP Family Medicine; Visit Provider Family Medicine
DX: R05.9 Cough, unspecified (principal); R73.03 Prediabetes; Q45.3 Other congenital malformations of pancreas and pancreatic duct; J44.0 Chronic obstructive pulmonary disease with (acute) lower respiratory infection
CPT/HCPCS: 71046; 99212

== ENCOUNTER → 2024-05-01 13:51 | Outpatient (BNV) | payer MEDICARE, SELFPAY | PROVIDERS: PCP Family Medicine; Visit Provider Radiology Diagnostic Radiology | DX: R05.9 Cough, unspecified (principal) | CPT/HCPCS: 71046 ==

== ENCOUNTER 2024-05-09 14:56 | Outpatient (AMB) | payer MEDICARE, SELFPAY ==
[2024-05-09 15:00] VITALS: BP 138/82; PULSE 70; O2SAT 96; BMI 25.6
--- NOTE | 2024-05-09 15:00 | A.OFFVIS_ITS ---
Vital Signs 05/09/24 15:00 Height 5 ft 8 in Weight 168 lb 10.458 oz BMI 25.6 BP 138/82 Blood Pressure Location Rt brachial Position Sitting Pulse 70 Pulse Source Pulse Oximeter Pulse Oximetry (%) 96 Oxygen Delivery Method Room Air Intake Visit Reasons: increased cough and wheeze Allergies Floxin Otic Allergy (Severe, Uncoded 05/09/24 15:04) Headache HPI Comments Details: The patient is a 84-year-old gentleman with a known history of asthma COPD overlap syndrome in addition to pulmonary nodules. 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 During that time was exposed to significant dust from surrounding tiles in route. He started feeling under the weather once he arrived to [facility]. Started developing worsening respiratory symptoms he was taken to the hospital. There he had an x-ray which was without any acute disease in he was placed on antibiotics and also prednisone. His symptoms not improve and actually worsen in the cold the on-call doctor to visit him in his room. He actually required 2 visits. His medications were increased both prednisone and was given a course of Augmentin. He was also given a short- acting beta agonist that he did not bring with him. Now the patient is better. He did have significant weight loss. We did have him get a CT scan of the chest back in November 2018 demonstrating pulmonary nodules compared to his previous CAT scan. 02/28/2023 the patient is here for pulmonary follow-up visit. Overall doing better. He is taking the Trelegy more. He still getting short of breath with activity. He is on the treadmill for about a mallet have and is also using the bike for about a mi and a half. Tolerates this well he is also working outside. She we did talk about the significant eosinophilia. The patient will be a great candidate for al 5 inhibitors. 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 He will likely even be able to come off some of the inhalers. However, the patient is not ready for shots as of yet. I did give him information about it. He will consider. Will discuss it further in 6 months. He knows to use his inhaler more regularly to avoid any worsening symptoms. 09/05/2023 the patient is here for a pulmonary follow-up visit. He is responding well to the Trelegy inhaler. Still having episodes of coughing shortness of breath. Fbjj-kh-iaemjaox severity. He has been working outside going to mouth. The patient does have a history pulmonary nodules. The last time they did were visualized was back in 2019. He should really have a repeat CT scan to address the pulmonary nodules and make sure they are stable. He also had a chest x-ray back in 2020 demonstrating hyperinflated lungs. The patient will continue taking the Trelegy. The patient will return in the fall after having a CT scan of the chest. If he has any worsening symptoms or any other concerning symptoms she should call for an earlier assessment. 03/11/2024 the patient is here for a pulmonary follow-up visit. The patient overall has been doing okay. He is not always using the Trelegy inhaler. He notices some increased dyspnea on exertion. Also some chest daily some coughing. Hnms-pq-nsorxsuq severity. Explained to him the importance of using his maintenance inhaler. He is going to try to use it more regularly. He also has a rescue inhaler that he can use as needed. Is exercising at the gym. In regards of imaging studies the patient did undergo CT scan of the chest which I personally reviewed from 11/28/2023. He has multiple pulmonary nodules but he does have a 6 mm to 8 mm subsolid pulmonary nodule. Therefore plan to repeat a CT scan again in November of 2024 a year from his last CT scan. Will follow-up after his CT scan. 05/09/2024 the patient is here for a follow-up visit. Apparently has not been doing well for the last few weeks. He started developing worsening respiratory symptoms with chest tightness and wheezing. He went to an urgent care where he was given a Z-Jonn. He continue with the Trelegy inhaler. Although he still was not feeling better so he followed up with his primary care doctor. He did have a chest x-ray personally by me which is without any acute disease. He was placed on prednisone and was given a Z-Jonn. Now he is back to his baseline. He does not like the Trelegy though because he does not like the powder does not feel like he is getting it well. Will go ahead and switch him over to Breztri. I also gave him spacer to better administer the medication better distribution medication. The patient will continue with current respiratory therapy and he is going to wean off completely from the prednisone. If coming off the prednisone his symptoms worsen he will call for right now his respiratory exam is reassuring without any wheezing she come off the prednisone without any issues at this time. He will follow-up in 3-4 months. In the meantime his is concerned because he was found to have something in the pancreas. He was sent to GI but he was referred back to his previous GI group. The patient is very concerned and also his . I did reach out to his primary care doctor to try to facilitate his referral. [facility] Medical History Headache Asthma Asthma-COPD overlap syndrome Eosinophilia Pulmonary nodules COPD (chronic obstructive pulmonary disease) Surgical History History of arthroscopic knee surgery History of appendectomy Family History Sister Intestinal cancer Brother Intestinal cancer Mother Intestinal cancer Social History Household Members: Spouse Caregiver staying overnight: No Housing: House Are you a primary home health care respiratory therapist to a significant other at home: No Do you presently have visiting nurse or other home services: No 75 years or older and lives alone: No Alcohol intake: current Alcohol intake frequency: 0-2 drinks per day Alcohol type: beer and wine Patient Tobacco Use Status: Former Tobacco user Tobacco use type: Cigarette Years Smoked: 9 years total e-Cigarette/Vaping Use: Never Used service: Yes ([employer] 6 years) Current occupational status: retired and other Current occupational exposures/hazards: No Sexual orientation: Straight/Heterosexual Gender identity: Male Cognitive needs: No Hearing needs: No Vision needs: Yes (Saw the eye doctor and avoids night driving) Review of Systems Const Denies night sweats ENT Denies lip swelling and Denies tongue swelling Card Denies chest pain and Reports dyspnea on exertion Resp Reports cough, Reports dyspnea on exertion and Reports wheezing GI Denies abdominal pain Musc Denies no additional complaints Neuro Denies Neuro-related abnormal movements Psych Denies no additional complaints Mele/Lymph Denies easy bleeding and Denies lymphadenopathy Aller/Immun Denies lip swelling, Denies tongue swelling and Reports wheezing Physical Exam Vital Signs: Last Vital Signs Pulse 70 05/09/24 15:00 BP 138/82 05/09/24 15:00 Pulse Ox 96 05/09/24 15:00 Oxygen Delivery Method Room Air 05/09/24 15:00 BMI result Body Mass Index 25.6 Const General: alert Neck Neck: Yes normal visual inspection, Yes full ROM and Yes no lymphadenopathy Chest Chest palpation & inspection: normal inspection of the chest Resp Effort & Inspection: normal respiratory effort Auscultation: no wheezes and diminished lung sounds Cardio Rate: regular rate Rhythm: regular rhythm Heart sounds: S1 normal heart sound present and S2 normal heart sound present GI Palpation (GI): Soft to palpation and nontender Auscultation: normal bowel sounds Skin General skin exam: rashes and/or lesions noted Assessment & Plan Assessment & Plan (1) Asthma-COPD overlap syndrome: Code(s): J44.9 - Chronic obstructive pulmonary disease, unspecified Category: Medical (2) Pulmonary nodules: Code(s): R91.8 - Other nonspecific abnormal finding of lung field Category: Medical (3) Eosinophilia: Code(s): D72.10 - Eosinophilia, unspecified Category: Medical Qualifiers: Eosinophilia type: other eosinophilia Qualified Code(s): D72.19 - Other eosinophilia Plan -stop Trelegy 200 daily -start Breztri with spacer -complete prednisone, call if symptoms worsen -continue Singular -Short-acting beta agonist as needed and also 15 minutes before exercise or extraneous activity -Consider Biologic therapy with Fasenra if continues to be symptomatic. Would need to repeat bloodwork if that is the case -CT chest 11/2024 -follow-up in 3-4 months Medications: New lbxlssbaky-bjycqszn-pcbrhcloxx 160-9-4.8 mcg/actuation (Breztri Aerosphere) 2 inhalations inhalation BID 10.7 grams 11RF 30 days Coding Level of Care Code Est Pt Level 4 (18546) Diagnoses Asthma-COPD overlap syndrome J44.9 Pulmonary nodules R91.8 Other eosinophilia D72.19 Eosinophilia type: other eosinophilia Time Spent (min) 16
== END 2024-05-09 15:40 | disposition home or self-care (01) ==
PROVIDERS: PCP Family Medicine; Visit Provider Hospitalist
DX: J44.9 Chronic obstructive pulmonary disease, unspecified (principal); R91.8 Other nonspecific abnormal finding of lung field; D72.19 Other eosinophilia
CPT/HCPCS: 99214

== ENCOUNTER → 2024-05-09 14:56 | Outpatient (BNVA) | payer MEDICARE, SELFPAY | PROVIDERS: PCP Family Medicine; Visit Provider Hospitalist | DX: J44.89 Other specified chronic obstructive pulmonary disease (principal); R91.8 Other nonspecific abnormal finding of lung field; D72.19 Other eosinophilia; Z87.891 Personal history of nicotine dependence | CPT/HCPCS: 99212 ==

== ENCOUNTER 2024-08-01 11:28 | Outpatient (AMB) | payer MEDICARE, SELFPAY ==
--- NOTE | 2024-08-01 11:42 | MHC.PC.OV ---
Vital Signs 08/01/24 12:02 Height 5 ft 8 in Weight 173 lb BMI 26.3 BP 130/80 Blood Pressure Location Rt brachial Position Sitting Respiration 16 Pulse 69 Pulse Source Pulse Oximeter Temp 97.7 F Temp Source Oral Pulse Oximetry (%) 96 Oxygen Delivery Method Room Air Intake Visit Reasons: f/u pre-diabetes, chronic conditions Intake Note: patient is scheduled for pre-dm and chronic condition change gi to [facility] gastro Senior Publications Specialist Required: No Allergies Floxin Otic Allergy (Severe, Uncoded 05/09/24 15:04) Headache Tobacco use date assessed: 10/23/23 Dental Screening Dental Screen Date: 10/23/23 HPI f/u pre-diabetes, chronic conditions HPI Details 84 y/o male presents to f/u pre-diabetes, chronic conditions. A1c today 6.0%, was 6.0% at prior visit. [facility] Medical History Headache Asthma Asthma-COPD overlap syndrome Eosinophilia Pulmonary nodules COPD (chronic obstructive pulmonary disease) Surgical History History of arthroscopic knee surgery History of appendectomy Family History Sister Intestinal cancer Brother Intestinal cancer Mother Intestinal cancer Social History Household Members: Spouse Caregiver staying overnight: No Housing: House Are you a primary healthcare science specialist to a significant other at home: No Do you presently have visiting nurse or other home services: No 75 years or older and lives alone: No Alcohol intake: current Alcohol intake frequency: 0-2 drinks per day Alcohol type: beer and wine Patient Tobacco Use Status: Former Tobacco user Tobacco use type: Cigarette Years Smoked: 9 years total e-Cigarette/Vaping Use: Never Used service: Yes ([employer] 6 years) Current occupational status: retired and other Current occupational exposures/hazards: No Sexual orientation: Straight/Heterosexual Gender identity: Male Cognitive needs: No Hearing needs: No Vision needs: Yes (Saw the eye doctor and avoids night driving) Questionnaire PHQ-9 Over the last 2 weeks, how often have you been bothered by any of the following problems? 1. Little interest or pleasure in doing things: not at all Source: Developed by Drs. Vipin Albright, Ludmila Green, Modesto Thomas and colleagues, with an educational namita from [employer]. Thrive Questionnaire Date Thrive assessed: 04/28/24 I am a: Patient What is your living situation today?: I have a steady place to live Within the past 12 months, did the food you bought not last and you didn't have the money to get more?: Never true Within the past 12 months, did you worry whether your food would run out before you got money to buy more?: Never true Do you have trouble paying for medicines?: No Do you have trouble getting transportation to medical appointments?: No Do you have trouble paying your heating and electricity bill?: No Do you have trouble taking care of your child, family member or friend?: No Do you have trouble with day-to-day activities such as bathing, preparing meals, shopping, managing finances, etc.?: No Are you currently unemployed and looking for a job?: No Are you interested in more education?: No Please select the resources that you would like help with: None Currently or been in a relationship where the following occur: No concerns reported THRIVE Score: 0 MALIK-7 AMB Questionnaire MALIK-7 Date MALIK - 7 assessed: 05/03/23 Source: Developed by Drs. Vipin Albright, Modesto Barahona and colleagues, with an educational namita from [employer]. Review of Systems Const Denies chills, Denies fatigue, Denies fever(s), Denies headache(s) and Denies weakness ENT Denies dizziness and Denies headache(s) Card Denies dyspnea Resp Denies cough, Denies dyspnea, Denies wheezing and Denies other (shortness of breath) Musc Denies numbness and Denies tingling Neuro Denies dizziness, Denies headache(s), Denies numbness, Denies tingling and Denies weakness Psych Denies anxiety and Denies depression Endo Denies fatigue Aller/Immun Denies wheezing Physical exam (Primary Care) Vital Signs: Last Vital Signs Temp 97.7 F 08/01/24 12:02 Pulse 69 08/01/24 12:02 Resp 16 08/01/24 12:02 BP 130/80 08/01/24 12:02 Pulse Ox 96 08/01/24 12:02 Oxygen Delivery Method Room Air 08/01/24 12:02 BMI result Body Mass Index 26.3 Tobacco/Smoking Status: Tobacco use Status Tobacco use date assessed 10/23/23 08/01/24 11:44 Patient Tobacco Use Status Former Tobacco user 08/01/24 11:44 Tobacco use type Cigarette 08/01/24 11:44 e-Cigarette/Vaping Use Never Used 08/01/24 11:44 Thrive Assessment: Date of Thrive Assessment Date Thrive assessed 04/28/24 08/01/24 11:44 Currently or been in a relationship where the following occur: No concerns reported Const General: well developed; No acute distress Nutritional Appearance: well nourished Orientation/consciousness: patient oriented x3 HENMT Head: Yes normocephalic and Yes atraumatic Eyes General: appearance normal, both eyes and all related structures Pupils: Equal, round and reactive pupils present EOM: EOMs intact bilaterally Resp Effort & Inspection: normal respiratory effort Neuro General: patient oriented x3 and gait normal Cranial nerves: Yes Equal, round and reactive pupils present Psych Affect: normal affect Coding Level of Care Code Est Pt Level 4 (22579) Diagnoses Pre-diabetes R73.03 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 COPD type: COPD with acute lower respiratory infection Screening for colon cancer Z12.11 Assessment & Plan Assessment & Plan (1) Pre-diabetes: Code(s): R73.03 - Prediabetes Category: Medical Plan: A1c?stable?at?6.0%.??Pre?diabetes?range Encouraged?diet?lower?in?sugars?and?starches Encouraged?exercise?and?weight?control Will?continue?monitor (2) 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 Category: Medical Plan: MRI?abdomen?in?November?2023?showed?incidental?lesions?in?pancreatic?head.??Recommended?follow-up MRI?ordered Will?follow-up?6-8?weeks (3) COPD (chronic obstructive pulmonary disease): Code(s): J44.9 - Chronic obstructive pulmonary disease, unspecified Category: Medical Qualifiers: COPD type: COPD with acute lower respiratory infection Qualified Code(s): J44.0 - Chronic obstructive pulmonary disease with (acute) lower respiratory infection Plan: Breathing?easily Followed?by pulmonology?and?has?CT?chest Follow-up?with?pulmonology?as?recommended (4) Screening for colon cancer: Code(s): Z12.11 - Encounter for screening for malignant neoplasm of colon Category: Medical Plan: And?referred?patient?to?gastroenterology?for?likely?final?colonoscopy. As?not?had?appointment. Referred?back?to?[facility]?gastroenterology.??Patient?and??would?like[facility]gastroenterology[facility]at[facility]. 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
[2024-08-01 12:02] VITALS: BP 130/80; PULSE 69; RESP 16; TEMP 36.5; O2SAT 96; BMI 26.3
== END 2024-08-01 12:28 | disposition home or self-care (01) ==
LOC: HO.HMCFM 11:29
PROVIDERS: PCP Family Medicine; Visit Provider Family Medicine
DX: R73.03 Prediabetes (principal); Q45.3 Other congenital malformations of pancreas and pancreatic duct; J44.0 Chronic obstructive pulmonary disease with (acute) lower respiratory infection; Z12.11 Encounter for screening for malignant neoplasm of colon

== ENCOUNTER → 2024-08-01 11:28 | Outpatient (BNVA) | payer MEDICARE, SELFPAY | PROVIDERS: PCP Family Medicine; Visit Provider Family Medicine | DX: R73.03 Prediabetes (principal); Q45.3 Other congenital malformations of pancreas and pancreatic duct; J44.0 Chronic obstructive pulmonary disease with (acute) lower respiratory infection | CPT/HCPCS: 83036; 99212 ==

== ENCOUNTER 2024-08-02 13:14 | Outpatient (AMB) | payer MEDICARE, SELFPAY ==
[2024-08-02 13:17] VITALS: BP 140/80; PULSE 67; O2SAT 97; BMI 26.3
--- NOTE | 2024-08-02 13:17 | A.OFFVIS_ITS ---
Vital Signs 08/02/24 13:17 Height 5 ft 8 in Weight 173 lb 1.006 oz BMI 26.3 BP 140/80 H Blood Pressure Location Lt brachial Position Sitting Pulse 67 Pulse Source Pulse Oximeter Pulse Oximetry (%) 97 Oxygen Delivery Method Room Air Intake Visit Reasons: 3m f/u COPD Gauge Controller Required: No Accompanied by: Self / Same As Patient Allergies Floxin Otic Allergy (Severe, Uncoded 05/09/24 15:04) Headache HPI Comments Details: The patient is a 84-year-old gentleman with a known history of asthma COPD overlap syndrome in addition to pulmonary nodules. 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 During that time was exposed to significant dust from surrounding tiles in route. He started feeling under the weather once he arrived to [facility]. Started developing worsening respiratory symptoms he was taken to the hospital. There he had an x-ray which was without any acute disease in he was placed on antibiotics and also prednisone. His symptoms not improve and actually worsen in the cold the on-call doctor to visit him in his room. He actually required 2 visits. His medications were increased both prednisone and was given a course of Augmentin. He was also given a short- acting beta agonist that he did not bring with him. Now the patient is better. He did have significant weight loss. We did have him get a CT scan of the chest back in November 2018 demonstrating pulmonary nodules compared to his previous CAT scan. 02/28/2023 the patient is here for pulmonary follow-up visit. Overall doing better. He is taking the Trelegy more. He still getting short of breath with activity. He is on the treadmill for about a mallet have and is also using the bike for about a mi and a half. Tolerates this well he is also working outside. She we did talk about the significant eosinophilia. The patient will be a great candidate for al 5 inhibitors. 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 He will likely even be able to come off some of the inhalers. However, the patient is not ready for shots as of yet. I did give him information about it. He will consider. Will discuss it further in 6 months. He knows to use his inhaler more regularly to avoid any worsening symptoms. 09/05/2023 the patient is here for a pulmonary follow-up visit. He is responding well to the Trelegy inhaler. Still having episodes of coughing shortness of breath. Ttxf-in-fwuymudz severity. He has been working outside going to mouth. The patient does have a history pulmonary nodules. The last time they did were visualized was back in 2019. He should really have a repeat CT scan to address the pulmonary nodules and make sure they are stable. He also had a chest x-ray back in 2020 demonstrating hyperinflated lungs. The patient will continue taking the Trelegy. The patient will return in the fall after having a CT scan of the chest. If he has any worsening symptoms or any other concerning symptoms she should call for an earlier assessment. 03/11/2024 the patient is here for a pulmonary follow-up visit. The patient overall has been doing okay. He is not always using the Trelegy inhaler. He notices some increased dyspnea on exertion. Also some chest daily some coughing. Pqdp-kw-nhgspgkh severity. Explained to him the importance of using his maintenance inhaler. He is going to try to use it more regularly. He also has a rescue inhaler that he can use as needed. Is exercising at the gym. In regards of imaging studies the patient did undergo CT scan of the chest which I personally reviewed from 11/28/2023. He has multiple pulmonary nodules but he does have a 6 mm to 8 mm subsolid pulmonary nodule. Therefore plan to repeat a CT scan again in November of 2024 a year from his last CT scan. Will follow-up after his CT scan. 05/09/2024 the patient is here for a follow-up visit. Apparently has not been doing well for the last few weeks. He started developing worsening respiratory symptoms with chest tightness and wheezing. He went to an urgent care where he was given a Z-Jonn. He continue with the Trelegy inhaler. Although he still was not feeling better so he followed up with his primary care doctor. He did have a chest x-ray personally by me which is without any acute disease. He was placed on prednisone and was given a Z-Jonn. Now he is back to his baseline. He does not like the Trelegy though because he does not like the powder does not feel like he is getting it well. Will go ahead and switch him over to Breztri. I also gave him spacer to better administer the medication better distribution medication. The patient will continue with current respiratory therapy and he is going to wean off completely from the prednisone. If coming off the prednisone his symptoms worsen he will call for right now his respiratory exam is reassuring without any wheezing she come off the prednisone without any issues at this time. He will follow-up in 3-4 months. In the meantime his is concerned because he was found to have something in the pancreas. He was sent to GI but he was referred back to his previous GI group. The patient is very concerned and also his . I did reach out to his primary care doctor to try to facilitate his referral. 08/02/2024 the patient is here for pulmonary follow-up visit. The patient overall has been doing a lot better. He is back to his baseline. He responded well to the Breztri inhaler. He takes it daily. He has not had to use his rescue inhaler. He continues on the Singulair at nighttime. We did review his vaccines. I believe he needs to get a Tdap. He will go to the pharmacy to find out. Otherwise all his vaccines are up today. The patient also is due for CAT scan sometime over the summer. Following his pulmonary nodules. Therefore, he will return 6 months if there is anything abnormal with a CAT scan let her know before him. Otherwise will follow-up for that appointment. If he has any issues prior to that he will also call for an earlier assessment. [facility] Medical History Headache Asthma Asthma-COPD overlap syndrome Eosinophilia Pulmonary nodules COPD (chronic obstructive pulmonary disease) Surgical History History of arthroscopic knee surgery History of appendectomy Family History Sister Intestinal cancer Brother Intestinal cancer Mother Intestinal cancer Social History Household Members: Spouse Caregiver staying overnight: No Housing: House Are you a primary palliative care coordinator to a significant other at home: No Do you presently have visiting nurse or other home services: No 75 years or older and lives alone: No Alcohol intake: current Alcohol intake frequency: 0-2 drinks per day Alcohol type: beer and wine Patient Tobacco Use Status: Former Tobacco user Tobacco use type: Cigarette Years Smoked: 9 years total e-Cigarette/Vaping Use: Never Used service: Yes ([employer] 6 years) Current occupational status: retired and other Current occupational exposures/hazards: No Sexual orientation: Straight/Heterosexual Gender identity: Male Cognitive needs: No Hearing needs: No Vision needs: Yes (Saw the eye doctor and avoids night driving) Review of Systems Const Denies chills, Denies fatigue, Denies fever(s), Denies weight gain and Denies weight loss ENT Denies dizziness, Denies lip swelling and Denies tongue swelling Card Denies chest pain, Denies leg edema, Denies lightheadedness, Denies palpitations, Reports dyspnea on exertion, Denies orthopnea and Denies other Resp Reports cough, Reports dyspnea on exertion and Reports wheezing GI Denies hematochezia and Denies change in stool character Musc Denies abnormal gait, Denies muscle weakness, Denies numbness, Denies radiating pain into limb and Denies tingling Neuro Denies abnormal gait, Denies dizziness, Denies numbness and Denies tingling Psych Denies no additional complaints Endo Denies fatigue and Denies palpitations Mele/Lymph Denies easy bleeding and Denies lymphadenopathy Aller/Immun Denies lip swelling, Denies tongue swelling and Reports wheezing Physical Exam Vital Signs: Last Vital Signs Pulse 67 08/02/24 13:17 BP 140/80 H 08/02/24 13:17 Pulse Ox 97 08/02/24 13:17 Oxygen Delivery Method Room Air 08/02/24 13:17 BMI result Body Mass Index 26.3 Const General: alert Neck Neck: Yes normal visual inspection, Yes full ROM and Yes no lymphadenopathy Chest Chest palpation & inspection: normal inspection of the chest Resp Effort & Inspection: normal respiratory effort Auscultation: clear to auscultation bilaterally and no wheezes Cardio Rate: regular rate Rhythm: regular rhythm Heart sounds: S1 normal heart sound present and S2 normal heart sound present GI Palpation (GI): Soft to palpation and nontender Auscultation: normal bowel sounds Skin General skin exam: rashes and/or lesions noted Assessment & Plan Assessment & Plan (1) Asthma-COPD overlap syndrome: Code(s): J44.9 - Chronic obstructive pulmonary disease, unspecified Category: Medical (2) Pulmonary nodules: Code(s): R91.8 - Other nonspecific abnormal finding of lung field Category: Medical (3) Eosinophilia: Code(s): D72.10 - Eosinophilia, unspecified Category: Medical Qualifiers: Eosinophilia type: other eosinophilia Qualified Code(s): D72.19 - Other eosinophilia Plan Breztri with spacer continue Singular Short-acting beta agonist as needed and also 15 minutes before exercise or extraneous activity Consider Biologic therapy with Fasenra if continues to be symptomatic. Would need to repeat bloodwork if that is the case CT chest 11/2024 follow-up in 6 months Coding Level of Care Code Est Pt Level 4 (10056) Complex EM visit Add On G2211 Diagnoses Asthma-COPD overlap syndrome J44.9 Pulmonary nodules R91.8 Other eosinophilia D72.19 Eosinophilia type: other eosinophilia Time Spent (min) 17
== END 2024-08-02 13:35 | disposition home or self-care (01) ==
LOC: HO.HPS 13:15
PROVIDERS: PCP Family Medicine; Visit Provider Hospitalist
DX: J44.9 Chronic obstructive pulmonary disease, unspecified (principal); R91.8 Other nonspecific abnormal finding of lung field; D72.19 Other eosinophilia
CPT/HCPCS: 99214; G2211

== ENCOUNTER → 2024-08-02 13:14 | Outpatient (BNVA) | payer MEDICARE, SELFPAY | PROVIDERS: PCP Family Medicine; Visit Provider Hospitalist | DX: J44.89 Other specified chronic obstructive pulmonary disease (principal); D72.19 Other eosinophilia; R91.8 Other nonspecific abnormal finding of lung field | CPT/HCPCS: 99212 ==

== ENCOUNTER → 2024-08-12 10:57 | Outpatient (BNV) | payer MEDICARE, SELFPAY | PROVIDERS: PCP Family Medicine; Visit Provider Radiology Diagnostic Radiology | DX: K86.2 Cyst of pancreas (principal) | CPT/HCPCS: 74183 ==

== ENCOUNTER 2024-08-12 11:08 | Outpatient (REF) | payer MEDICARE, SELFPAY ==
--- NOTE | ~2024-08-12 | MR_ITS ---
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 TECHNIQUE: Axial in and out of phase T1-weighted gradient echo, axial diffusion weighted, and axial and coronal HASTE T2 with fat saturation images were obtained through the abdomen. Subsequently, fat suppressed axial and coronal T1-weighted images were obtained after the intravenous administration of 8 mL Gadavist. FINDINGS: There is no significant loss of signal intensity within the liver on opposed phase imaging to suggest steatosis. There are tiny subcentimeter cysts within the liver. There is no intra or extrahepatic biliary ductal dilatation. The hepatic and portal veins are patent. The gallbladder is contracted. No calculi are identified. Again seen are tiny cystic foci in the body and tail the pancreas measuring up to 6 mm in size without change. The pancreatic duct is not dilated. There is no abnormal contrast enhancement. The spleen, adrenals, and right kidney are unremarkable. There is a 7.8 cm cyst at the upper pole of the left kidney. No retroperitoneal lymphadenopathy or ascites is identified in the upper abdomen. The visualized bones demonstrate normal marrow signal intensity. 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 Continued follow-up is recommended. Electronically signed by: Vipin Mosquera MD 08/12/2024 01:30 PM EDT
[2024-08-12] MEDS: gadobutroL 10 ML VIAL IVPUSH (12:16)
--- OUTSIDE RECORDS SUMMARY | 2024-08-12 12:57 | XMS_ITS | Patient Health Record ---
Author Organization [facility] Address [address] [place] [address] Care Team Providers Care Cargo Bracer Name Role Phone Ace Barton Primary Care Provider UnavailVipin Clark Unavailable [phone] Reason For Referral No Information Encounters Encounter Location Date Provider Diagnosis [facility] [address] [place] [address] 05/20/2024 Vipin Medina Plan Of Treatment No Information Insurance Providers Payer Name Payer Address Payer Phone Subscriber Number Group Number Insured Name Patient Relationship to Insured Coverage Start Date Coverage End Date MEDICARE OF [place] [address] [place] [address] [id number] ARUN CARCAMO Self - patient is the insured MEDEX ATTN CLAIMS [address] [place] [address] [id number] ARUN CARCAMO Self - patient is the insured
--- OUTSIDE RECORDS SUMMARY | 2024-08-12 12:57 | XMS_ITS ---
Author Organization [facility] Address [address] [place] [phone] Care Team Providers Care Polisher Balance Screwhead Name Role Phone Ace Barton Primary Care Provider Unavailab Vipin Schwartz Unavailable [phone] REASON FOR VISIT soon appt Encounters Encounter Location Date Provider Diagnosis [facility] [address] [place] [phone] 05/20/2024 Vipin Medina Plan Of Treatment No Information Progress Notes * ARUN CARCAMO RDOB:[birth year] (84 yo M)Acc No.[id number]:05/20/2024 Patient:?ARUN CARCAMO :1940???Age:84 Y???Sex:Male Address:[address] [place] [address] * * Date:?
== END 2024-08-12 11:09 | disposition home or self-care (01) ==
LOC: HO.MRI 11:08
PROVIDERS: PCP Family Medicine; Visit Provider Family Medicine
DX: Q45.3 Other congenital malformations of pancreas and pancreatic duct (principal)
CPT/HCPCS: 74183; A9585

== ENCOUNTER 2024-08-26 11:18 | Outpatient (REF) | payer MEDICARE, SELFPAY ==
--- NOTE | ~2024-08-26 | US_ITS ---
CLINICAL HISTORY: R93.429 - Abnormal radiologic findings on diagnostic imaging of unspecif... Exam: Ultrasound of the kidneys. Comparison: July 17, 2023. Findings: Right kidney measures 11.3 x 5.7 x 5.5 cm in size. Simple cyst within the interpolar region of the right kidney measures 4 mm in size. Is a tiny associated calcification with this measuring 2 mm in size. No hydronephrosis. Left kidney measures 12.2 x 4.9 x 4.7 cm in size. Multiple simple cysts within the left kidney. The largest is a partially exophytic cyst measuring 7.9 cm in size. No hydronephrosis. No solid mass lesion within the left kidney. Urinary bladder is moderately distended. Impression: 1. Tiny cysts within the right kidney with adjacent calcification. 2. Multiple cysts within the left kidney as above. No definitive left kidney mass is seen. Patient reportedly has a recent MRI of the abdomen from August 12, 2024. Please refer to that study as a more sensitive and specific modality for renal masses. This document has been electronically signed by: Hong Whitley MD on 08/27/2024 07:35:08
--- OUTSIDE RECORDS SUMMARY | 2024-08-26 12:02 | XMS_ITS | Patient Health Record ---
Author Organization [facility] Address [address] [place] [address] Care Team Providers Care Power Equipment Mechanics Instructor Name Role Phone Ace Barton Primary Care Provider UnavailVipin Clark Unavailable [phone] Reason For Referral No Information Encounters Encounter Location Date Provider Diagnosis [facility] [address] [place] [address] 05/20/2024 Vipin Medina Plan Of Treatment No Information Insurance Providers Payer Name Payer Address Payer Phone Subscriber Number Group Number Insured Name Patient Relationship to Insured Coverage Start Date Coverage End Date MEDICARE OF [place] [address] [place] [address] [id number] ARUN CARCAMO Self - patient is the insured MEDEX ATTN CLAIMS [address] [place] [address] [id number] ARUN CARCAMO Self - patient is the insured
--- OUTSIDE RECORDS SUMMARY | 2024-08-26 12:02 | XMS_ITS ---
Author Organization [facility] Address [address] [place] [phone] Care Team Providers Care Pressure Sealer And Tester Name Role Phone Ace Barton Primary Care Provider Unavailab Vipin Schwartz Unavailable [phone] REASON FOR VISIT soon appt Encounters Encounter Location Date Provider Diagnosis [facility] [address] [place] [phone] 05/20/2024 Vipin Medina Plan Of Treatment No Information Progress Notes * ARUN CARCAMO RDOB:[birth year] (84 yo M)Acc No.[id number]:05/20/2024 Patient:?ARUN CARCAMO :1940???Age:84 Y???Sex:Male Address:[address] [place] [address] * * Date:?
== END 2024-08-26 11:19 | disposition home or self-care (01) ==
LOC: HO.US 11:18
PROVIDERS: PCP Family Medicine; Visit Provider Urology
DX: R93.429 Abnormal radiologic findings on diagnostic imaging of unspecified kidney (principal)
CPT/HCPCS: 76775

== ENCOUNTER → 2024-08-26 11:21 | Outpatient (BNV) | payer MEDICARE, SELFPAY | PROVIDERS: PCP Family Medicine; Visit Provider Radiology Diagnostic Radiology | DX: N28.1 Cyst of kidney, acquired (principal) | CPT/HCPCS: 76775 ==

== ENCOUNTER 2024-09-16 11:33 | Outpatient (AMB) | payer MEDICARE, SELFPAY ==
--- NOTE | 2024-09-16 12:40 | MHC.PC.OV ---
Vital Signs 09/16/24 12:45 Height 5 ft 8 in Weight 170 lb 6 oz BMI 25.9 BP 130/78 Blood Pressure Location Rt brachial Position Sitting Respiration 16 Pulse 65 Pulse Source Pulse Oximeter Temp 97.6 F Temp Source Oral Pulse Oximetry (%) 95 Oxygen Delivery Method Room Air Intake Visit Reasons: f/u MRI Intake Note: patient is scheduled to follow up on mri [employer] Instructor Required: No Allergies Floxin Otic Allergy (Severe, Uncoded 05/09/24 15:04) Headache Medication List - Last Reconciled 09/16/24 by Ace Barton MD albuterol sulfate 2.5 mg (3 mL) inhalation BID 30 days albuterol sulfate 90 mcg/actuation 2 inhalations inhalation Q6H PRN 30 days dhzeuntzyu-cwqovaao-ugemehpoig 160-9-4.8 mcg/actuation (Breztri Aerosphere) 2 inhalations inhalation BID 30 days finasteride (Proscar) 5 mg PO DAILY 90 days nebulizers As directed Tobacco use date assessed: 10/23/23 Dental Screening Dental Screen Date: 10/23/23 HPI f/u MRI HPI Details 84 y/o male presents to f/u abd. MRI for incidiental pancreatic lesions seen on MRI in November 2023. 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 Continued follow-up is recommended. Renal ultrasound 08/27/24 had shown: 1. Tiny cysts within the right kidney with adjacent calcification. 2. Multiple cysts within the left kidney as above. No definitive left kidney mass is seen. Patient reportedly has a recent MRI of the abdomen from August 12, 2024. Please refer to that study as a more sensitive and specific modality for renal masses. HPI Comments History of Present Illness Details Documentation assistance for Ace Barton MD, was provided by Yonathan Kevin,? Swimming Pool Plasterer Helper on 09/16/2024 at 12:48 PM EST. I, Dr. Barton, have read, observed, and verified documentation. ? PFSH Medical History Headache Asthma Asthma-COPD overlap syndrome Eosinophilia Pulmonary nodules COPD (chronic obstructive pulmonary disease) Surgical History History of arthroscopic knee surgery History of appendectomy Family History Sister Intestinal cancer Brother Intestinal cancer Mother Intestinal cancer Social History Household Members: Spouse Caregiver staying overnight: No Housing: House Are you a primary urgent care technician to a significant other at home: No Do you presently have visiting nurse or other home services: No 75 years or older and lives alone: No Alcohol intake: current Alcohol intake frequency: 0-2 drinks per day Alcohol type: beer and wine Patient Tobacco Use Status: Former Tobacco user Tobacco use type: Cigarette Years Smoked: 9 years total e-Cigarette/Vaping Use: Never Used service: Yes ([employer] 6 years) Current occupational status: retired and other Current occupational exposures/hazards: No Sexual orientation: Straight/Heterosexual Gender identity: Male Cognitive needs: No Hearing needs: No Vision needs: Yes (Saw the eye doctor and avoids night driving) Questionnaire Thrive Questionnaire Date Thrive assessed: 04/28/24 I am a: Patient What is your living situation today?: I have a steady place to live Within the past 12 months, did the food you bought not last and you didn't have the money to get more?: Never true Within the past 12 months, did you worry whether your food would run out before you got money to buy more?: Never true Do you have trouble paying for medicines?: No Do you have trouble getting transportation to medical appointments?: No Do you have trouble paying your heating and electricity bill?: No Do you have trouble taking care of your child, family member or friend?: No Do you have trouble with day-to-day activities such as bathing, preparing meals, shopping, managing finances, etc.?: No Are you currently unemployed and looking for a job?: No Are you interested in more education?: No Please select the resources that you would like help with: None Currently or been in a relationship where the following occur: No concerns reported THRIVE Score: 0 MALIK-7 AMB Questionnaire MALIK-7 Date MALIK - 7 assessed: 05/03/23 Source: Developed by Drs. Vipin Albright, Ludmila Green, Modesto Thomas and colleagues, with an educational namita from [employer]. Review of Systems Const Denies chills, Denies fatigue, Denies fever(s), Denies headache(s) and Denies weakness ENT Denies dizziness and Denies headache(s) Card Denies dyspnea Resp Denies cough, Denies dyspnea, Denies wheezing and Denies other (shortness of breath) Musc Denies numbness and Denies tingling Neuro Denies dizziness, Denies headache(s), Denies numbness, Denies tingling and Denies weakness Psych Denies anxiety and Denies depression Endo Denies fatigue Aller/Immun Denies wheezing Physical exam (Primary Care) Vital Signs: Last Vital Signs Temp 97.6 F 09/16/24 12:45 Pulse 65 09/16/24 12:45 Resp 16 09/16/24 12:45 BP 130/78 09/16/24 12:45 Pulse Ox 95 09/16/24 12:45 Oxygen Delivery Method Room Air 09/16/24 12:45 BMI result Body Mass Index 25.9 Tobacco/Smoking Status: Tobacco use Status Tobacco use date assessed 10/23/23 09/16/24 12:47 Patient Tobacco Use Status Former Tobacco user 09/16/24 12:47 Tobacco use type Cigarette 09/16/24 12:47 e-Cigarette/Vaping Use Never Used 09/16/24 12:47 Thrive Assessment: Date of Thrive Assessment Date Thrive assessed 04/28/24 09/16/24 12:47 Currently or been in a relationship where the following occur: No concerns reported Const General: well developed; No acute distress Nutritional Appearance: well nourished Orientation/consciousness: patient oriented x3 [facility] Head: Yes normocephalic and Yes atraumatic Eyes General: appearance normal, both eyes and all related structures Pupils: Equal, round and reactive pupils present EOM: EOMs intact bilaterally Resp Effort & Inspection: normal respiratory effort Neuro General: patient oriented x3 and gait normal Cranial nerves: Yes Equal, round and reactive pupils present Psych Affect: normal affect Coding Level of Care Code Est Pt Level 3 (98721) Diagnoses Pancreatic abnormality Q45.3 Abnormal ultrasound of kidney R93.429 Screening for colon cancer Z12.11 Assessment & Plan Assessment & Plan (1) 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 Had already?referred?patient?to?gastroenterology?for?screening?colon?cancer?but?he?has?not?been?scheduled?yet. Will?refer?to?GI?and?patient?and?his??want?to?see?. They?have?stressed?frustration?with urgency.??And?discussed?patient?and?his??that GI?will?see?them?as?soon?as?they?can. They?will?let?me?know?they?have?any?difficulties?getting?an?appointment. (2) Abnormal ultrasound of kidney: Code(s): R93.429 - Abnormal radiologic findings on diagnostic imaging of unspecified kidney Category: Medical Plan: Numerous?tiny?cysts. 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
[2024-09-16 12:45] VITALS: BP 130/78; PULSE 65; RESP 16; TEMP 36.4; O2SAT 95; BMI 25.9
--- OUTSIDE RECORDS SUMMARY | 2024-09-16 13:14 | XMS_ITS | Patient Health Record ---
Author Organization [facility] Address [address] [place] [address] Care Team Providers Care Financial Coach Name Role Phone Ace Barton Primary Care Provider UnavailVipin Clark Unavailable [phone] Reason For Referral No Information Encounters Encounter Location Date Provider Diagnosis [facility] [address] [place] [address] 05/20/2024 Vipin Medina Plan Of Treatment No Information Insurance Providers Payer Name Payer Address Payer Phone Subscriber Number Group Number Insured Name Patient Relationship to Insured Coverage Start Date Coverage End Date MEDICARE OF [place] [address] [place] [address] [id number] ARUN CARCAMO Self - patient is the insured MEDEX ATTN CLAIMS [address] [place] [address] [id number] ARUN CARCAMO Self - patient is the insured
== END 2024-09-16 13:43 | disposition home or self-care (01) ==
LOC: HO.HMCFM 11:33
PROVIDERS: PCP Family Medicine; Visit Provider Family Medicine
DX: Q45.3 Other congenital malformations of pancreas and pancreatic duct (principal); R93.429 Abnormal radiologic findings on diagnostic imaging of unspecified kidney; Z12.11 Encounter for screening for malignant neoplasm of colon

== ENCOUNTER → 2024-09-16 11:33 | Outpatient (BNVA) | payer MEDICARE, SELFPAY | PROVIDERS: PCP Family Medicine; Visit Provider Family Medicine | DX: Q45.3 Other congenital malformations of pancreas and pancreatic duct (principal); R93.429 Abnormal radiologic findings on diagnostic imaging of unspecified kidney | CPT/HCPCS: 99212 ==

== ENCOUNTER 2024-10-21 14:49 | Outpatient (AMB) | payer MEDICARE, SELFPAY ==
--- NOTE | 2024-10-21 14:48 | MHC.PC.OV ---
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 Allergies Floxin Otic Allergy (Severe, Uncoded 05/09/24 15:04) Headache Medication List - Last Reconciled 10/21/24 by Ace Barton MD albuterol sulfate 2.5 mg (3 mL) inhalation BID 30 days albuterol sulfate 90 mcg/actuation 2 inhalations inhalation Q6H PRN 30 days murwhkupbh-nlhizzqh-dldkdbtppy 160-9-4.8 mcg/actuation (Breztri Aerosphere) 2 inhalations inhalation BID 30 days finasteride (Proscar) 5 mg PO DAILY 90 days nebulizers As directed Tobacco use date assessed: 10/23/23 Dental Screening Dental Screen Date: 10/23/23 HPI f/u chronic conditions HPI Details Patient returns for follow-up COPD and chronic conditions. Breathing easily and taking his medications as prescribed. He is followed by pulmonary medicine and has an upcoming appointment Patient has had imaging suggesting IPMN. 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 Patient is followed by Urology for BPH and is having worsening urinary symptoms. His urologist also ordered an ultrasound which showed renal cysts. He does not have a follow-up appointment scheduled. Patient frequently asks exam is in question and got 0/3 on 3 word recall His says that he frequently does not remember what she tells him [facility] Medical History Headache Asthma Asthma-COPD overlap syndrome Eosinophilia Pulmonary nodules COPD (chronic obstructive pulmonary disease) Surgical History History of arthroscopic knee surgery History of appendectomy Family History Sister Intestinal cancer Brother Intestinal cancer Mother Intestinal cancer Social History Household Members: Spouse Caregiver staying overnight: No Housing: House Are you a primary home child care provider to a significant other at home: No Do you presently have visiting nurse or other home services: No 75 years or older and lives alone: No Alcohol intake: current Alcohol intake frequency: 0-2 drinks per day Alcohol type: beer and wine Patient Tobacco Use Status: Former Tobacco user Tobacco use type: Cigarette Years Smoked: 9 years total e-Cigarette/Vaping Use: Never Used service: Yes ([employer] 6 years) Current occupational status: retired and other Current occupational exposures/hazards: No Sexual orientation: Straight/Heterosexual Gender identity: Male Cognitive needs: No Hearing needs: No Vision needs: Yes (Saw the eye doctor and avoids night driving) Questionnaire Thrive Questionnaire Date Thrive assessed: 04/28/24 MALIK-7 AMB Questionnaire MALIK-7 Date MALIK - 7 assessed: 05/03/23 Source: Developed by Drs. Vipin Albright, Ludmila Green, Modesto Thomas and colleagues, with an educational namita from [employer]. Review of Systems Const Denies chills, Denies fatigue, Denies fever(s), Denies headache(s) and Denies weakness ENT Denies dizziness and Denies headache(s) Card Denies chest pain, Denies lightheadedness, Denies dyspnea and Denies other (Palpitations) Resp Denies cough, Denies dyspnea, Denies wheezing and Denies other ( shortness of breath) Musc Denies numbness and Denies tingling Neuro Details: Poor memory and frequently forgets things. Denies dizziness, Denies headache(s), Denies numbness, Denies tingling, Denies paresthesias and Denies weakness Psych Denies anxiety and Denies depression Endo Denies fatigue Aller/Immun Denies wheezing Physical exam (Primary Care) Vital Signs: Last Vital Signs Temp 97.4 F 10/21/24 14:53 Pulse 82 10/21/24 14:53 Resp 14 10/21/24 14:53 BP 124/66 10/21/24 14:53 Pulse Ox 95 10/21/24 14:53 Oxygen Delivery Method Room Air 10/21/24 14:53 BMI result Body Mass Index 25.4 Tobacco/Smoking Status: Tobacco use Status Tobacco use date assessed 10/23/23 10/21/24 14:49 Patient Tobacco Use Status Former Tobacco user 10/21/24 14:49 Tobacco use type Cigarette 10/21/24 14:49 e-Cigarette/Vaping Use Never Used 10/21/24 14:49 Thrive Assessment: Date of Thrive Assessment Date Thrive assessed 04/28/24 10/21/24 14:49 Const General: no acute distress and well developed Nutritional Appearance: well nourished Orientation/consciousness: patient oriented x3 HENMT Head: Yes normocephalic and Yes atraumatic Eyes General: appearance normal, both eyes and all related structures Pupils: Equal, round and reactive pupils present EOM: EOMs intact bilaterally Resp Effort & Inspection: normal respiratory effort Auscultation: clear to auscultation bilaterally Cardio Rate: regular rate Rhythm: regular rhythm Heart sounds: S1 normal heart sound present, S2 normal heart sound present, no gallops, no murmurs and no rubs Neuro General: patient oriented x3 and gait normal Cranial nerves: Yes Equal, round and reactive pupils present Psych Other: Normal affect. Often tangential with his green of thought. Poor memory and frequently forgets examiner's answers to his question-patient repeats many questions. 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 Medina Follow-up with Dr. Medina as recommended BPH with worsening urinary symptoms Will ask the office to help him get scheduled for a follow-up appointment with Urology COPD. Controlled today. Patient is breathing easily and lungs are clear. Follow-up with Pulmonary Medicine as recommended Memory changes and frequently repeats questions in the office. 0/3 word recall Neurologically intact Referred to neuropsych, [facility] memory clinic. Orders: Referrals Neuropsychiatry Referral R41.3 - Other amnesia, R41.82 - Altered mental status, unspecified
[2024-10-21 14:53] VITALS: BP 124/66; PULSE 82; RESP 14; TEMP 36.3; O2SAT 95; BMI 25.4
--- OUTSIDE RECORDS SUMMARY | 2024-10-21 16:03 | XMS_ITS | Patient Health Record ---
Author Organization [facility] Address [address] [place] [address] Care Team Providers Care Orthotic Technician Name Role Phone Ace Barton Primary Care Provider UnavailVipin Clark Unavailable [phone] Reason For Referral No Information Encounters Encounter Location Date Provider Diagnosis [facility] [address] [place] [address] 05/20/2024 Vipin Medina Plan Of Treatment Next Appt Details Provider Name:Vipin Medina , 12/25/2024 03:40:00 PM, [address], [address], [place], [address], Insurance Providers Payer Name Payer Address Payer Phone Subscriber Number Group Number Insured Name Patient Relationship to Insured Coverage Start Date Coverage End Date MEDICARE OF [place] [address] [place] [id number] ARUN CARCAMO Self - patient is the insured MEDEX ATTN CLAIMS [address] [place] [address] [id number] ARUN CARCAMO Self - patient is the insured
== END 2024-10-21 15:49 | disposition home or self-care (01) ==
LOC: HO.HMCFM 14:49
PROVIDERS: PCP Family Medicine; Visit Provider Family Medicine
DX: N40.1 Benign prostatic hyperplasia with lower urinary tract symptoms (principal); J44.9 Chronic obstructive pulmonary disease, unspecified; R41.3 Other amnesia; Q45.3 Other congenital malformations of pancreas and pancreatic duct

== ENCOUNTER → 2024-10-21 14:49 | Outpatient (BNVA) | payer MEDICARE, SELFPAY | PROVIDERS: PCP Family Medicine; Visit Provider Family Medicine | DX: N40.1 Benign prostatic hyperplasia with lower urinary tract symptoms (principal); J44.9 Chronic obstructive pulmonary disease, unspecified; R41.3 Other amnesia; Q45.3 Other congenital malformations of pancreas and pancreatic duct | CPT/HCPCS: 99212 ==

== ENCOUNTER 2024-11-02 09:13 | Outpatient (REF) | payer MEDICARE, SELFPAY ==
--- NOTE | ~2024-11-02 | CT_ITS ---
CLINICAL HISTORY: Pulmonary nodules CT chest without IV contrast. COMPARISON: CT chest dated 11/28/23 at 11:05 EDT FINDINGS: Visualized thyroid is unremarkable. No supraclavicular or axillary lymphadenopathy. Ascending aorta and main pulmonary artery are normal in caliber. No pericardial effusion. Coronary artery calcifications present within the LAD, circumflex and RCA. Normal esophagus. No mediastinal lymphadenopathy. No pleural effusion. Small amount of apical pleural scarring present bilaterally, similar to prior imaging. No consolidation. Trachea and central airways are clear. Mild bronchial wall thickening. No bronchiectasis. Small bilateral 2-4 mm pulmonary nodules, similar to prior imaging. For example left lower lobe 2 mm pulmonary micronodule (series 3, image 134), stable. Right lower lobe 4 mm pulmonary nodule (series 3, image 151), stable. Right lower lobe 2 mm pulmonary micronodule (series 3, image 133), stable. Right lower lobe 2 mm pulmonary micronodule (series 3, image 109), stable. Right upper lobe 2 mm pulmonary micronodule (series 3, image 49), stable No new or growing pulmonary nodule identified. Left renal cystic lesion measuring up to 7.8 cm, partially visualized. Flowing marginal osteophytes along the midthoracic spine. No acute fracture or suspicious bone lesion. IMPRESSION: 1. Stable small bilateral bilateral pulmonary nodules measuring up to 4 mm. No new or growing pulmonary nodules. No further specific follow-up recommendations. 2. Mild bronchial wall thickening can be associated with an infectious or inflammatory process. 3. Coronary artery atherosclerosis. This document has been electronically signed by: Mathew Navas MD on 11/04/2024 13:56:06
== END 2024-11-02 09:14 | disposition home or self-care (01) ==
LOC: HO.CT 09:13
PROVIDERS: PCP Family Medicine; Visit Provider Hospitalist
DX: R91.8 Other nonspecific abnormal finding of lung field (principal)
CPT/HCPCS: 71250

== ENCOUNTER → 2024-11-02 09:37 | Outpatient (BNV) | payer MEDICARE, SELFPAY | PROVIDERS: PCP Family Medicine; Visit Provider Radiology Diagnostic Radiology | DX: R91.8 Other nonspecific abnormal finding of lung field (principal) | CPT/HCPCS: 71250 ==

== ENCOUNTER 2024-11-19 09:35 | Outpatient (AMB) | payer MEDICARE, SELFPAY ==
[2024-11-19 09:37] VITALS: BP 142/80; PULSE 65; O2SAT 96; BMI 25.6
--- NOTE | 2024-11-19 09:37 | A.OFFVIS_ITS ---
Vital Signs 11/19/24 09:37 Height 5 ft 8 in Weight 168 lb 10.458 oz BMI 25.6 BP 142/80 H Blood Pressure Location Lt brachial Position Sitting Pulse 65 Pulse Source Pulse Oximeter Pulse Oximetry (%) 96 Oxygen Delivery Method Room Air Intake Visit Reasons: COPD/CT Follow Up Accompanied by: Self / Same As Patient Allergies Floxin Otic Allergy (Severe, Uncoded 05/09/24 15:04) Headache HPI Comments Details: The patient is a 84-year-old gentleman with a known history of asthma COPD overlap syndrome in addition to pulmonary nodules. 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 During that time was exposed to significant dust from surrounding tiles in route. He started feeling under the weather once he arrived to [facility]. Started developing worsening respiratory symptoms he was taken to the hospital. There he had an x-ray which was without any acute disease in he was placed on antibiotics and also prednisone. His symptoms not improve and actually worsen in the cold the on-call doctor to visit him in his room. He actually required 2 visits. His medications were increased both prednisone and was given a course of Augmentin. He was also given a short- acting beta agonist that he did not bring with him. Now the patient is better. He did have significant weight loss. We did have him get a CT scan of the chest back in November 2018 demonstrating pulmonary nodules compared to his previous CAT scan. 02/28/2023 the patient is here for pulmonary follow-up visit. Overall doing better. He is taking the Trelegy more. He still getting short of breath with activity. He is on the treadmill for about a mallet have and is also using the bike for about a mi and a half. Tolerates this well he is also working outside. She we did talk about the significant eosinophilia. The patient will be a great candidate for al 5 inhibitors. 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 He will likely even be able to come off some of the inhalers. However, the patient is not ready for shots as of yet. I did give him information about it. He will consider. Will discuss it further in 6 months. He knows to use his inhaler more regularly to avoid any worsening symptoms. 09/05/2023 the patient is here for a pulmonary follow-up visit. He is responding well to the Trelegy inhaler. Still having episodes of coughing shortness of breath. Wcsn-ch-lyhrbzuc severity. He has been working outside going to mouth. The patient does have a history pulmonary nodules. The last time they did were visualized was back in 2019. He should really have a repeat CT scan to address the pulmonary nodules and make sure they are stable. He also had a chest x-ray back in 2020 demonstrating hyperinflated lungs. The patient will continue taking the Trelegy. The patient will return in the fall after having a CT scan of the chest. If he has any worsening symptoms or any other concerning symptoms she should call for an earlier assessment. 03/11/2024 the patient is here for a pulmonary follow-up visit. The patient overall has been doing okay. He is not always using the Trelegy inhaler. He notices some increased dyspnea on exertion. Also some chest daily some coughing. Iike-mh-jkuzyiip severity. Explained to him the importance of using his maintenance inhaler. He is going to try to use it more regularly. He also has a rescue inhaler that he can use as needed. Is exercising at the gym. In regards of imaging studies the patient did undergo CT scan of the chest which I personally reviewed from 11/28/2023. He has multiple pulmonary nodules but he does have a 6 mm to 8 mm subsolid pulmonary nodule. Therefore plan to repeat a CT scan again in November of 2024 a year from his last CT scan. Will follow-up after his CT scan. 05/09/2024 the patient is here for a follow-up visit. Apparently has not been doing well for the last few weeks. He started developing worsening respiratory symptoms with chest tightness and wheezing. He went to an urgent care where he was given a Z-Jonn. He continue with the Trelegy inhaler. Although he still was not feeling better so he followed up with his primary care doctor. He did have a chest x-ray personally by me which is without any acute disease. He was placed on prednisone and was given a Z-Jonn. Now he is back to his baseline. He does not like the Trelegy though because he does not like the powder does not feel like he is getting it well. Will go ahead and switch him over to Breztri. I also gave him spacer to better administer the medication better distribution medication. The patient will continue with current respiratory therapy and he is going to wean off completely from the prednisone. If coming off the prednisone his symptoms worsen he will call for right now his respiratory exam is reassuring without any wheezing she come off the prednisone without any issues at this time. He will follow-up in 3-4 months. In the meantime his is concerned because he was found to have something in the pancreas. He was sent to GI but he was referred back to his previous GI group. The patient is very concerned and also his . I did reach out to his primary care doctor to try to facilitate his referral. 08/02/2024 the patient is here for pulmonary follow-up visit. The patient overall has been doing a lot better. He is back to his baseline. He responded well to the Breztri inhaler. He takes it daily. He has not had to use his rescue inhaler. He continues on the Singulair at nighttime. We did review his vaccines. I believe he needs to get a Tdap. He will go to the pharmacy to find out. Otherwise all his vaccines are up today. The patient also is due for CAT scan sometime over the summer. Following his pulmonary nodules. Therefore, he will return 6 months if there is anything abnormal with a CAT scan let her know before him. Otherwise will follow-up for that appointment. If he has any issu es prior to that he will also call for an earlier assessment. 11/19/2024 the patient is here for a pulmonary follow-up visit. Overall the patient has been doing well. He has responded well to the Breztri inhaler. He has been very active working regularly and going to the gym regularly. He has not had to use any prednisone and has not sent had to use his rescue inhaler. He has wheezing is much better on the inhaler although he continues to have evidence of significant asthma. He does have eosinophilia and likely a great candidate for biologics. But right now he seems to be doing well without the biologic injections so will hold off. His CT scan was reassuring pulmonary nodules are stable. No additional CAT scans at this time. Will discuss further testing the next visit. [facility] Medical History Headache Asthma Asthma-COPD overlap syndrome Eosinophilia Pulmonary nodules COPD (chronic obstructive pulmonary disease) Surgical History History of arthroscopic knee surgery History of appendectomy Family History Sister Intestinal cancer Brother Intestinal cancer Mother Intestinal cancer Social History Household Members: Spouse Caregiver staying overnight: No Housing: House Are you a primary plant health care technician to a significant other at home: No Do you presently have visiting nurse or other home services: No 75 years or older and lives alone: No Alcohol intake: current Alcohol intake frequency: 0-2 drinks per day Alcohol type: beer and wine Patient Tobacco Use Status: Former Tobacco user Tobacco use type: Cigarette Years Smoked: 9 years total e-Cigarette/Vaping Use: Never Used service: Yes ([employer] 6 years) Current occupational status: retired and other Current occupational exposures/hazards: No Sexual orientation: Straight/Heterosexual Gender identity: Male Cognitive needs: No Hearing needs: No Vision needs: Yes (Saw the eye doctor and avoids night driving) Review of Systems Const Denies chills, Denies fatigue, Denies fever(s), Denies weight gain and Denies weight loss ENT Denies dizziness, Denies lip swelling and Denies tongue swelling Card Denies chest pain, Denies leg edema, Denies lightheadedness, Denies palpitations, Reports dyspnea on exertion, Denies orthopnea and Denies other Resp Reports cough, Reports dyspnea on exertion and Reports wheezing GI Denies hematochezia and Denies change in stool character Musc Denies abnormal gait, Denies muscle weakness, Denies numbness, Denies radiating pain into limb and Denies tingling Neuro Denies abnormal gait, Denies dizziness, Denies numbness and Denies tingling Psych Denies no additional complaints Endo Denies fatigue and Denies palpitations Mele/Lymph Denies easy bleeding and Denies lymphadenopathy Aller/Immun Denies lip swelling, Denies tongue swelling and Reports wheezing Physical Exam Vital Signs: Last Vital Signs Pulse 65 11/19/24 09:37 BP 142/80 H 11/19/24 09:37 Pulse Ox 96 11/19/24 09:37 Oxygen Delivery Method Room Air 11/19/24 09:37 BMI result Body Mass Index 25.6 Const General: alert Neck Neck: Yes normal visual inspection, Yes full ROM and Yes no lymphadenopathy Chest Chest palpation & inspection: normal inspection of the chest Resp Effort & Inspection: normal respiratory effort Auscultation: clear to auscultation bilaterally and no wheezes Cardio Rate: regular rate Rhythm: regular rhythm Heart sounds: S1 normal heart sound present and S2 normal heart sound present GI Palpation (GI): Soft to palpation and nontender Auscultation: normal bowel sounds Skin General skin exam: rashes and/or lesions noted Assessment & Plan Assessment & Plan (1) Asthma-COPD overlap syndrome: Code(s): J44.9 - Chronic obstructive pulmonary disease, unspecified Category: Medical (2) Pulmonary nodules: Code(s): R91.8 - Other nonspecific abnormal finding of lung field Category: Medical (3) Eosinophilia: Code(s): D72.10 - Eosinophilia, unspecified Category: Medical Qualifiers: Eosinophilia type: other eosinophilia Qualified Code(s): D72.19 - Other eosinophilia Plan Breztri with spacer continue Singular Short-acting beta agonist as needed and also 15 minutes before exercise or extraneous activity Consider Biologic therapy with Fasenra if continues to be symptomatic. Would need to repeat bloodwork if that is the case CT chest, stable follow-up in 6 months Coding Level of Care Code Est Pt Level 4 (98938) Complex EM visit Add On G2211 Diagnoses Asthma-COPD overlap syndrome J44.9 Pulmonary nodules R91.8 Other eosinophilia D72.19 Eosinophilia type: other eosinophilia Time Spent (min) 17
--- OUTSIDE RECORDS SUMMARY | 2024-11-19 10:16 | XMS_ITS | Patient Health Record ---
Author Organization [facility] Address [address] [place] [address] Care Team Providers Care [employer] Name Role Phone Ace Barton Primary Care Provider UnavailVipin Clark Unavailable [phone] Reason For Referral No Information Encounters Encounter Location Date Provider Diagnosis [facility] [address] [place] [address] 05/20/2024 Vipin Medina Plan Of Treatment Next Appt Details Provider Name:Vipin Medina , 12/25/2024 03:40:00 PM, [address], [address], [place], [address], Insurance Providers Payer Name Payer Address Payer Phone Subscriber Number Group Number Insured Name Patient Relationship to Insured Coverage Start Date Coverage End Date MEDICARE OF [place] [address] [place] [id number] ARUN CARCAMO Self - patient is the insured MEDEX ATTN CLAIMS [address] [place] [address] [id number] ARUN CARCAMO Self - patient is the insured
== END 2024-11-19 10:00 | disposition home or self-care (01) ==
LOC: HO.HPS 09:36
PROVIDERS: PCP Family Medicine; Visit Provider Hospitalist
DX: J44.9 Chronic obstructive pulmonary disease, unspecified (principal); R91.8 Other nonspecific abnormal finding of lung field; D72.19 Other eosinophilia
CPT/HCPCS: 99214; G2211

== ENCOUNTER → 2024-11-19 09:35 | Outpatient (BNVA) | payer MEDICARE, SELFPAY | PROVIDERS: PCP Family Medicine; Visit Provider Hospitalist | DX: J44.89 Other specified chronic obstructive pulmonary disease (principal); R91.8 Other nonspecific abnormal finding of lung field; D72.19 Other eosinophilia | CPT/HCPCS: 99212 ==

== ENCOUNTER 2024-12-18 19:18 | Emergency (ER) | payer MEDICARE, SELFPAY ==
--- NOTE | ~2024-12-18 | XR_ITS ---
CLINICAL HISTORY: dizziness 2 view chest x-ray Comparison: CR/SR - XR CHEST 2 VIEWS - 05/01/24 14:02 EST Findings: The lungs are clear. Heart size is normal. No acute fracture. IMPRESSION: 1. No acute findings. This document has been electronically signed by: Sharmila Henao MD on 12/18/2024 20:35:51
--- NOTE | ~2024-12-18 | CT_ITS ---
CLINICAL HISTORY: head injury, dizziness CT head without contrast Comparison: None provided Findings: BRAIN: No acute infarct, hemorrhage, or mass effect. Scattered periventricular/deep white matter hypodensities, nonspecific, however may represent chronic microvascular ischemic disease. CSF SPACES: No hydrocephalus or effacement of basal cisterns. SKULL: No calvarial fracture. SINUSES: Severe ethmoid and bilateral maxillary sinus mucosal disease. ORBITS: Limited views are unremarkable. OTHER: Negative. IMPRESSION: 1. No acute intracranial findings. This document has been electronically signed by: Sharmila Henao MD on 12/18/2024 21:20:36
[2024-12-18 19:33] VITALS: BP 140/84; PULSE 86; RESP 18; TEMP 36.4; O2SAT 96; BMI 25.3
--- NOTE | 2024-12-18 19:38 | ED_ITS ---
HPI - General Adult General Chief complaint: Dizziness Stated complaint: severe headaches, not feeling well Time Seen by Provider: 12/18/24 20:37 Source: patient Mode of arrival: ambulatory History of Present Illness ED Provider: Nikolai HPI narrative: 84-year-old male has a history of COPD, comes in after having hit his head 4 days ago really hard on a beam, no use of chronic anticoagulation, no loss of consciousness but he states that every afternoon since then he has developed a very severe headache in the back part of his head that radiates down his neck and seems to also involve the upper portion of his chest, he states that it lasts for proximally 30 minutes but that he feels like he is going to pass out. The last episode happened this evening and he had to cancel dinner plans with his and decided that he would come in for evaluation. During these events he denies any visual disturbances, denies any extremity involvement with numbness/tingling/weakness. 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 Related Data Home Medications ?Medication ?Instructions ?Recorded ?Confirmed nebulizers 02/28/23 10/21/24 Previous Rx's ?Medication ?Instructions ?Recorded albuterol sulfate 2.5 mg/3 mL 2.5 mg (3 mL) inhalation BID 30 11/24/20 (0.083 %) solution for nebulization days #180 mL albuterol sulfate 90 mcg/actuation 2 inh inhalation Q6 H PRN shortness 12/13/22 aerosol inhaler of breath or wheezing 30 day s #18 grams budesonide 160 mcg-glycopyr 9 2 inh inhalation BID 30 days #10.7 05/09/24 mcg-formot 4.8 mcg/actuation HFA grams inhaler (Breztri Aerosphere) finasteride 5 mg tablet 5 mg PO DAILY #90 tabs 11/27 Allergies Allergy/AdvReac Type Severity Reaction Status Date / Time Floxin Otic Allergy Severe Headache Uncoded 12/18/24 19:33 Review of Systems 2 Review of Systems: Pertinent positives and negatives as stated in [facility] Past Medical History Attestation statement: The following information was validated with the patient. Source: nursing notes reviewed Medical History Headache Asthma Asthma-COPD overlap syndrome Eosinophilia Pulmonary nodules COPD (chronic obstructive pulmonary disease) Surgical History History of arthroscopic knee surgery History of appendectomy Family History Family History Sister Intestinal cancer Brother Intestinal cancer Mother Intestinal cancer Social History Social History Household Members: Spouse Housing: House Are you a primary child care center assistant director to a significant other at home: No Do you presently have visiting nurse or other home services: No Alcohol intake: current Alcohol intake frequency: 0-2 drinks per day Alcohol type: beer and wine Patient Tobacco Use Status: Former Tobacco user Tobacco use type: Cigarette Years Smoked: 9 years total Smoked in Last 30 Days: No e-Cigarette/Vaping Use: Never Used Use of substances other than those prescribed or required for medical reasons: No Advance Directives: No Advance Directives Information Provided: No Do you have a plan to hurt others: No Plan service: Yes ([employer] 6 years) Current occupational status: retired and other Current occupational exposures/hazards: No Sexual orientation: Straight/Heterosexual Gender identity: Male Cognitive needs: No Hearing needs: No Vision needs: Yes (Saw the eye doctor and avoids night driving) Physical Exam ED Exam Exam: VITAL SIGNS: Reviewed. GENERAL: Well developed, well nourished, in no acute distress. HEAD: Normocephalic/atraumatic EYES: PERRLA, EOMI EARS: Ext canals without abnormality NOSE: Nares patent bilateral OROPHARYNX: no oral lesions noted, posterior pharynx clear NECK: Supple, no adenopathy LUNGS: Normal breath sounds. No adventitious sounds or accessory muscle use. CARDIOVASCULAR: Regular rate and rhythm without noted murmurs ABDOMEN: Soft, non-tender, non-distended with bowel sounds. MUSCULOSKELETAL: No tenderness, deformities, or effusions noted on gross inspection. EXTREMITIES: No cyanosis, clubbing or edema. SKIN: Inspection of the skin reveals no rashes NEUROLOGIC: Alert and oriented x 4. Strength and sensation to light touch were grossly intact x 4. Vital Signs: Vital Signs - 24 hr 12/18/24 19:33 12/18/24 21:21 12/18/24 21:39 Temperature 97.5 F 97.6 F Pulse Rate 86 60 49 L Respiratory Rate 18 18 Blood Pressure 140/84 H 152/87 H 140/92 H Pulse Oximetry 96 96 Oxygen Delivery Method Room Air Room Air 12/18/24 21:42 12/18/24 21:44 Temperature Pulse Rate 56 61 Respiratory Rate Blood Pressure 156/84 H 150/94 H Pulse Oximetry Oxygen Delivery Method BMI result Body Mass Index 25.3 Course Course Course Narrative: Rapid medical examination performed in triage by Meghann Mackay PA-C. Patient is an 84 year old assigned male at presenting to the emergency department with lightheadedness / dizziness ever since hitting his head several days ago.Detailed physical exam and review of systems are deferred to the clinical support associate. EKG, labs, imaging, and swabs ordered. Patient placed back in the waiting room pending room availability and results. Medications Administered Generic Name Dose Route Start Last Admin Trade Name Freq PRN Reason Stop Dose Admin Sodium Chloride 1,000 mls @ 999 mls/hr 12/18/24 22:15 12/18/24 22:31 Ns IV 12/18/24 23:15 999 mls/hr .Q1H1M ZION Administration Discontinued Medications Generic Name Dose Route Start Last Admin Trade Name Freq PRN Reason Stop Dose Admin Acetaminophen 975 mg 12/18/24 22:11 12/18/24 22:19 Acetaminophen 325 Mg Tablet PO 12/18/24 22:12 975 mg ONCE ONE Administration Ibuprofen 400 mg 12/18/24 22:11 12/18/24 22:19 Ibuprofen 400 Mg Tablet PO 12/18/24 22:12 400 mg ONCE ONE Administration Medical Decision Making Medical Decision Making [facility] Narrative: 84-year-old male with history and clinical presentation, DD DX: Patient is completely asymptomatic at this time, I suspect there may be a combination of hypovolemia as well and has the head strike 4 days ago in combination with significant heavy laboring throughout the day as this always seems to come on between 3 and 4 in the afternoon. However, given patient's age and the traumatic head strike will pursue a CT of the head, will also obtain EKG, get orthostatics and get basic lab work. My interpretation of the EKG: Sinus rhythm, HR-73, no STEMI, IL/QRS/QTC/QT is otherwise within normal limits. 2208: I reviewed and interpreted all investigations and there is no leukocytosis, anemia, thrombocytopenia. Coagulation studies are within normal limits. There is no PETRA/electrolyte or liver enzyme derangements. There is however an elevated BUN mildly suggestive of poor oral hydration. Viral testing is negative for COVID-19/influenza. 2210: My interpretation of the chest x-ray is that there is no acute intrathoracic abnormalities, no suggestion of infiltrate/pleural fluid/venous congestion. Official chest x-ray read is pending. Intervention: 1L IVF, Tylenol, Ibuprofen Pending CT head read 2254: My interpretation is in agreement with radiology's impression that there is no evidence of acute intracranial injury. On re-evaluation patient reports he is feeling much improved and he is otherwise discharged home with instructions to rest and take Tylenol for any pain. Patient is otherwise well appearing/nontoxic and otherwise hemodynamically stable. Patient does not meet inpatient level of care. Differential Diagnosis Differential Diagnoses: The differential diagnosis associated with the presentation includes See above Admission/Observation Consideration of admission/observation: Escalation of care including admission/observation considered See above Lab Data MDM Lab Attestation statement: I reviewed the patient's lab results. See above 12/18/24 20:03 12/18/24 20:03 Labs: Lab Results 12/18/24 Range/Units 20:03 WBC 6.8 (4.8-10.8) X10*3/uL RBC 4.38 L (4.60-5.80) X10*6/uL Hgb 14.0 (14.0-18.0) g/dl Hct 40.2 L (42.0-52.0) % MCV 91.8 (80.0-98.0) fL MCH 32.0 (27.0-33.0) pg MCHC 34.8 (31.0-36.0) g/dl RDW 13.7 (11.0-16.0) % Plt Count 206 (160-400) X10*3/uL MPV 9.5 (9.4-12.4) fL Immature Gran % (Auto) 0.3 (0.0-0.4) % Neut % (Auto) 62.2 (45-73) % Lymph % (Auto) 24.6 (20-40) % [place] % (Auto) 8.2 (2-11) % Eos % (Auto) 3.8 (0-4) % Baso % (Auto) 0.9 (0-2) % Lymph # (Auto) 1.7 (1.2-4.9) X10*3/uL [place] # (Auto) 0.6 (0.1-1.2) X10*3/uL Eos # (Auto) 0.3 (0.0-0.4) X10*3/uL Baso # (Auto) 0.1 (0.0-0.2) X10*3/uL Abs Immat Gran (auto) 0.02 (0.00-0.03) X10*3/uL Absolute Neuts (auto) 4.2 (2.0-8.3) x10*3/uL Absolute Nucleated RBC 0.000 (0.0-0.012) X10*3/uL Nucleated RBC % (auto) 0.0 (0.0-0.2) /100WBC PT 11.6 (10.9-12.4) SEC INR 1.0 (0.9-1.1) Sodium 142 (135-145) mmol/L Potassium 4.2 (3.3-5.1) mmol/L Chloride 109 H (96-108) mmol/L Carbon Dioxide 25 (22-29) mmol/L Anion Gap 12 (12-20) BUN 22 H (9-16) mg/dL Creatinine 0.98 (0.5-1.4) mg/dL Estim Creat Clear Calc 56.2 Estimated GFR > 60 Random Glucose 120 H (60-115) mg/dL Calcium 9.0 (8.4-10.2) mg/dL Magnesium 2.3 (1.6-2.6) mg/dL Total Bilirubin 1.0 (0.0-1.0) mg/dL AST 23 (5-37) U/L ALT 20 (0-40) U/L Alkaline Phosphatase 74 (39-117) U/L Troponin I High Sens 4.5 (<3.5-35.0) ng/L Total Protein 6.5 (6.5-8.0) g/dL Albumin 4.1 (3.5-5.0) g/dL COVID-19 (LATASHA) Negative (Negative) COVID-19 Clin Com See Note Influenza Type A (ASHLI) Negative (Negative) Influenza Type B (ASHLI) Negative (Negative) Influenza A & B Note See Note Independent Interpretation I performed an independent interpretation of an: EKG and CT Scan Interpretation: See above Radiology Impression Discussion of test interpretation with radiology: I have reviewed the radiologist's reading. Radiologist Impression: See above Discharge Plan Discharge Clinical Impression: Headache, Muscle spasm Patient Disposition: Home, Self-Care Instructions: Muscle Spasm (ED), General Headache (ED) Additional Instructions: Resume all home medications as prescribed. Continue to drink plenty of fluids, rest, take Tylenol for pain. Please follow-up with your primary care doctor and do not hesitate to return to the emergency room for any acute worsening of your symptoms. Prescriptions: No Action albuterol sulfate 90 mcg/actuation HFA aerosol inhaler 2 inh inhalation Q6H PRN (Reason: shortness of breath or wheezing) 30 Days Qty: 18 12RF finasteride 5 mg tablet 5 mg PO DAILY Qty: 90 0RF albuterol sulfate 2.5 mg /3 mL (0.083 %) solution for nebulization 2.5 mg inhalation BID 30 Days Qty: 180 11RF (DME) nebulizers [facility] See Rx Instructions .Route Rx Instructions: As directed ALICE App 160-9-4.8 mcg/actuation HFA aerosol inhaler 2 inh inhalation BID 30 Days Qty: 10.7 11RF Referrals: Ace Barton MD [Primary Care Provider, Internal Medicine] Print Language: Beninese
--- NOTE | 2024-12-18 19:39 | ECG_ITS ---
Test Reason : DIZZNESS Blood Pressure : */* mmHG Vent. Rate : 73 BPM Atrial Rate : 73 BPM P-R Int : 168 ms QRS Dur : 92 ms QT Int : 376 ms P-R-T Axes : 60 -37 40 degrees QTcB Int : 414 ms Normal sinus rhythm Left axis deviation Septal infarct , age undetermined Abnormal ECG No previous ECGs available Referred By: Meghann Mackay Electronically Signed By: LITO LO MD
[2024-12-18 20:09] LABS: MANUAL DIFF FLAG NO
[2024-12-18 20:11] LABS: Hematocrit 40.2 % (42.0-52.0); Hemoglobin 14.0 g/dl (14.0-18.0); Imm Gran Abs Auto 0.02 X10*3/uL (0.00-0.03); Imm Gran Pct Auto 0.3 % (0.0-0.4); Lymphocytes Absolute Auto 1.7 X10*3/uL (1.2-4.9); Mean Corpuscular HGB Conc 34.8 g/dl (31.0-36.0); Mean Corpuscular Hemoglobin 32.0 pg (27.0-33.0); Mean Corpuscular Volume 91.8 fL (80.0-98.0); NRBC Abs Auto 0.000 X10*3/uL (0.0-0.012); NRBC Pct Auto 0.0 /100WBC (0.0-0.2); Platelet Count 206 X10*3/uL (160-400); Red Blood Count 4.38 X10*6/uL (4.60-5.80); White Blood Count 6.8 X10*3/uL (4.8-10.8)
[2024-12-18 20:17] LABS: INTERNATIONAL NORM RATIO 1.0 (0.9-1.1); Prothrombin Time 11.6 SEC (10.9-12.4)
[2024-12-18 20:26] LABS: Alanine Aminotransferase 20 U/L (0-40); Albumin Level 4.1 g/dL (3.5-5.0); Alkaline Phosphatase 74 U/L (39-117); Anion Gap 12 (12-20); Aspartate Amino Transferase 23 U/L (5-37); Blood Urea Nitrogen 22 mg/dL (9-16); COVID-19 Test Negative (Negative); Calcium 9.0 mg/dL (8.4-10.2); Carbon Dioxide 25 mmol/L (22-29); Chloride 109 mmol/L (96-108); Creatinine Clr Calc Pharmacy 56.2; Estimated Glomerular Filt Rate > 60; IDNOW Serial# 55D5AD1C; Magnesium 2.3 mg/dL (1.6-2.6); Potassium 4.2 mmol/L (3.3-5.1); Sodium 142 mmol/L (135-145); Total Protein 6.5 g/dL (6.5-8.0)
[2024-12-18 20:28] LABS: IDNOW Serial# 58CA691E; Influenza B2 Negative (Negative)
[2024-12-18 20:33] LABS: Troponin-I High Sensitivity 4.5 ng/L (<3.5-35.0)
--- OUTSIDE RECORDS SUMMARY | 2024-12-18 20:47 | XMS_ITS | Patient Health Record ---
Author Organization [facility] Address [address] [place] [address] Care Team Providers Care Peoplesoft Developer Name Role Phone Ace Barton Primary Care Provider UnavailVipin Clark Unavailable [phone] Reason For Referral No Information Encounters Encounter Location Date Provider Diagnosis [facility] [address] [place] [address] 05/20/2024 Vipin Medina Plan Of Treatment Next Appt Details Provider Name:Vipin Medina , 12/25/2024 01:40:00 PM, [address], [address], [place], [address], Insurance Providers Payer Name Payer Address Payer Phone Subscriber Number Group Number Insured Name Patient Relationship to Insured Coverage Start Date Coverage End Date MEDICARE OF [place] [address] [place] [id number] [phone] [id number] ARUN CARCAMO Self - patient is the insured [employer] ATTN CLAIMS [address] [place] [address] [id number] ARUN CARCAMO Self - patient is the insured
[2024-12-18 21:21] VITALS: BP 152/87; PULSE 60; RESP 18; TEMP 36.4; O2SAT 96
[2024-12-18 21:39] VITALS: BP 140/92; PULSE 49
[2024-12-18 21:42] VITALS: BP 156/84; PULSE 56
[2024-12-18 21:44] VITALS: BP 150/94; PULSE 61
[2024-12-18 23:59] VITALS: BP 150/94; PULSE 61; RESP 18; TEMP 36.9
== END 2024-12-19 | disposition home or self-care (01) ==
PROVIDERS: Physician Assistant Medical; Emergency Provider Student in an Organized Health Care Education/Training Program; PCP Family Medicine
DX: R51.9 Headache, unspecified (principal); M62.838 Other muscle spasm; S09.90XA Unspecified injury of head, initial encounter; W19.XXXA Unspecified fall, initial encounter; Y93.9 Activity, unspecified; Y92.9 Unspecified place or not applicable; Y99.9 Unspecified external cause status; Z03.818 Encounter for observation for suspected exposure to other biological agents ruled out
CPT/HCPCS: 70450; 71046; 80053; 83735; 84484; 85025; 85610; 87502; 87635; 93005; 96360; 99284; 99285

== ENCOUNTER → 2024-12-18 19:39 | Outpatient (BNV) | payer MEDICARE, SELFPAY | PROVIDERS: Emergency Provider Student in an Organized Health Care Education/Training Program; PCP Family Medicine; Visit Provider Internal Medicine Cardiovascular Disease | DX: R94.31 Abnormal electrocardiogram [ECG] [EKG] (principal); R42 Dizziness and giddiness | CPT/HCPCS: 93010 ==

== ENCOUNTER → 2024-12-18 19:39 | Outpatient (BNV) | payer MEDICARE, SELFPAY | PROVIDERS: Emergency Provider Student in an Organized Health Care Education/Training Program; PCP Family Medicine; Visit Provider Student in an Organized Health Care Education/Training Program | DX: S09.90XA Unspecified injury of head, initial encounter (principal); R42 Dizziness and giddiness; W19.XXXA Unspecified fall, initial encounter | CPT/HCPCS: 70450; 71046 ==

== ENCOUNTER 2025-01-02 16:10 | Outpatient (AMB) | payer MEDICARE, SELFPAY ==
--- OUTSIDE RECORDS SUMMARY | 2024-12-25 10:20 | XMS_ITS ---
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 Name Role Phone Ace Barton Primary Care Provider Unavailab Vipin Schwartz [phone] Allergies No Known Allergies REASON FOR VISIT Patient presents today for a colon screening Medications Medication SIG (Take, Route, Frequency, Duration) Notes Start Date End Date Status Albuterol Sulfate 108 (90 Base) MCG/ACT 1 puff as needed Inhalation every 4 hrs 12/25/2024 Active Finasteride 5 MG 1 tablet Orally Once a day for 30 day(s) 12/25/2024 Active Social History Tobacco Use: Social History Observation Description Date Details (start date - stop date) Never Smoker NA - NA Tobacco Control (Standard) Question Answer Notes Tobacco use: Nonsmoker AUDIT-C (Standard) Question Answer Notes Did you have a drink containing alcohol in the p ast year? 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 We did review the findings on his MRIs in regard to the small and benign-appearing pancreatic cysts consistent with IPMN. I advised him that this is not an uncommon finding nowadays as we obtain morei and more imaging studies on patients and as such we are finding these cysts more and more frequently. However, overall these are felt to be very benign processes but the recommendation is to follow them with MRIs every 1 or 2 years. We did review that given Arun's age and the appearance of these small benign cystic lesions on his MRIs that I do not think they will ever become clinically relevant or problematic for him in his lifetime. At this point I advised him that I will see him next Spring to review things further and then decide about a follow-up MRI at that point to compare to the one done in August of this year. He did ask me about further screening for colorectal cancer but I advised him that given his age of 84, no ongoing GI issues, and no definitive significant family history of colorectal cancer, that the guidelines would recommend holding off on any further screening colonoscopies for him. We did review that certainly if develops any change in bowel habits, signs of rectal bleeding, etc., he should contact me and we can always reassess things. While I do think he would certainly tolerate a screening colonoscopy without difficulty, I advised him that current guidelines would suggest holding off on that. He understood that and was comfortable with that recommendation. I did advise Arun to contact me prior to the next office visit if he has any problems or questions I can be of assistance with. Arun and his are very comfortable with this plan. Thank you again for allowing me to participate in Arun's care. I shall continue to keep you advised of his progress. 12/25/2024 Other Call me if you develop any significant change in the bowel movements, bleeding, etc Overall, Arun appears quite well and is not having any symptoms nor showing any signs to suggest any active pancreatic disease or anything more worrisome such as pancreatic neoplasm. We did review the findings on his MRIs in regard to the small and benign-appearing pancreatic cysts consistent with IPMN. I advised him that this is not an uncommon finding nowadays as we obtain morei and more imaging studies on patients and as such we are finding these cysts more and more frequently. However, overall these are felt to be very benign processes but the recommendation is to follow them with MRIs every 1 or 2 years. We did review that given Arun's age and the appearance of these small benign cystic lesions on his MRIs that I do not think they will ever become clinically relevant or problematic for him in his lifetime. At this point I advised him that I will see him next Spring to review things further and then decide about a follow-up MRI at that point to compare to the one done in August of this year. He did ask me about further screening for colorectal cancer but I advised him that given his age of 84, no ongoing GI issues, and no definitive significant family history of colorectal cancer, that the guidelines would recommend holding off on any further screening colonoscopies for him. We did review that certainly if develops any change in bowel habits, signs of rectal bleeding, etc., he should contact me and we can always reassess things. While I do think he would certainly tolerate a screening colonoscopy without difficulty, I advised him that current guidelines would suggest holding off on that. He understood that and was comfortable with that recommendation. I did advise Arun to contact me prior to the next office visit if he has any problems or questions I can be of assistance with. Arun and his are very comfortable with this plan. Thank you again for allowing me to participate in Arun's care. I shall continue to keep you advised of his progress. Plan Of Treatment Treatment Notes Assessment Notes IPMN (intraductal papillary mucinous neoplasm) We will consider a follow up MRI of the pancreas when I see you in 2025 Other Call me if you devel op any significant change in the bowel movements, bleeding, etc Next Appt Details Follow Up: Spring 2025, Reas on: Provider Name:Vipin Whitmore Adam , 07/22/2025 10:30:00 AM, [address], [address], [place], [phone], Progress Notes * ARUN CARCAMO MADDIEODOB: 1940 (84 yo M)Acc No.[id number]:12/25/2024 Progress Notes Patient: ARUN IRELAND MORE Provider: Binta Medina MD :1940 A ge:84 Y S ex:Male Date:12/25/2024 Address:[address] [id number] Pcp:Ace Barton Subjective: * Chief Complaints: * 1 . Patient presents today for a colon screening. * HPI: i ncontinence: I saw Arun in consultation today [facility] for the evaluation of his abnormal imaging of his pancreas with associated pancreatic cysts consistent with IPMN. He was accompanied by his . As you know, Arun is a very healthy 84-year-old male who feels well at the present time. He describes that I performed a couple of colonoscopies on him back in 2004 and in 2009,. He believes his first colonoscopy had some polyps and the second exam was negative. He has not had a colonoscopy since that time. He enjoys a good appetite and denies any significant heartburn or dysphagia. His bowel movements have been regular and without any hematochezia nor melena. He denies any abdominal pain, jaundice, nor unintentional weight loss. He denies any known family history of definitive colorectal cancer although his sister had some type of intestinal cancer . As you know, Arun apparently underwent a MRI with his urologist last year which revealed the incidental finding of benign cystic pancreatic lesions felt to be consistent with IPMN. He underwent a follow-up MRI this past August which describes that there were no significant changes as compared to the previous year's MRI in regard to the pancreas. The largest cystic area appeared to be about 6 mm in size. These were located in the pancreatic body and tail and were felt to represent IPMNs according to the radiology report. There is no report of any suspicious pancreatic mass or pancreatic duct abnormality. There is no lymphadenopathy nor ascites. Arun denies any previous history of pancreatitis or other pancreatic issues in either himself or family members. He does not use any significant amounts of alcohol now nor in the past. * Medical History: C OPD, Denies DE,DM,CVA,renal disease, IPMN on 2023 and 08/2024 MRI's--stable < 1cm cysts, Colonoscopies in 2004 and 2009. * Surgical History: A ppendectomy , Bilateral Knee surgery , Left eye surgery as a child . * Family History: F ather: . M other: . Sister with ? of intestinal cancer. * Social History: T obacco Use: T obacco Control (Standard) T obacco use: N onsmoker. M iscellaneous: M arital status: . Occupation: retired. D rug/Alcohol: A ANG-C (Standard) D id you have a drink containing alcohol in the past year? N o,?Points 0 , I nterpretation N egative. * Medications: T aking Albuterol Sulfate 108 (90 Base) MCG/ACT Aerosol Powder Breath Activated 1 puff as needed Inhalation every 4 hrs , Taking Finasteride 5 MG Tablet 1 tablet Orally Once a day * Allergies: N .K.D.A. Objective: * Vitals: W t:169lbs, Ht:68in, BMI:25.69Index, BP:001/01mm Hg, Temp:98.4, Ht-cm: 172.72, Wt- k.66. Assessment: * Assessment: 1. I PMN (intraductal papillary mucinous neoplasm) - D49.0 (Primary) Overall, Arun appears qu ite well and is not having any symptoms nor showing any signs to suggest any active pancreatic disease or anything more worrisome such as pancreatic neoplasm. We did review the findings on his MRIs in regard to the small and benign-appearing pancreatic cysts consistent with IPMN. I advised him that this is not an uncommon finding nowadays as we obtain morei and more imaging studies on patients and as such we are finding these cysts more and more frequently. However, overall these are felt to be very benign processes but the recommendation is to follow them with MRIs every 1 or 2 years. We did review that given Arun's age and the appearance of these small benign cystic lesions on his MRIs that I do not think they will ever become clinically relevant or problematic for him in his lifetime. At this point I advised him that I will see him next Spring to review things further and then decide about a follow-up MRI at that point to compare to the one done in August of this year. He did ask me about further screening for colorectal cancer but I advised him that given his age of 84, no ongoing GI issues, and no definitive significant family history of colorectal cancer, that the guidelines would recommend holding off on any further screening colonoscopies for him. We did review that certainly if develops any change in bowel habits, signs of rectal bleeding, etc., he should contact me and we can always reassess things. While I do think he would certainly tolerate a screening colonoscopy without difficulty, I advised him that current guidelines would suggest holding off on that. He understood that and was comfortable with that recommendation. I did advise Arun to contact me prior to the next office visit if he has any problems or questions I can be of assistance with. Arun and his are very comfortable with this plan. Thank you again for allowing me to participate in Arun's care. I shall continue to keep you advised of his progress. Plan: * Treatment: 2. O thers Notes: Call me if you develop any significant change in the bowel movements, bleeding, etc ? * Preventive Medicine: Counseling: C are goal follow-up plan: A tani Normal BMI Follow-up D ietary management education, guidance, and counseling, B DE management provided Y es. Screenings: F all Risk Screening F all Risk Assessment: N o falls in the past year, S creening: N o falls in the past year, A ssessment: N ot performed, no reason specified, P ca of Care: N ot documented, no reason specified. * Follow Up: S pring 2025 * * The named appointment provid er may or may not be the originator of this progress note, and it is not deemed complete until electronically signed by the appointment provider. Sign off status: Pending * Provider: Binta Medina MD Date: 12/25/2024 Generated for Mika casanova/Deshawn/Kendallitting on: 01/02/2025 07:52 PM EDT History and Physical Notes * HPI (History of Present Illness) Category Sub-Category Detail Notes Category Not es incontinence I saw Arun in consultation today [facility] for the evaluation of his abnormal imaging of his pancreas with associated pancreatic cysts consistent with IPMN. He was accompanied by his . As you know, Arun is a very healthy 84-year-old male who feels well at the present time. He describes that I performed a couple of colonoscopies on him back in 2004 and in 2009,. He believes his first colonoscopy had some polyps and the second exam was negative. He has not had a colonoscopy since that time. He enjoys a good appetite and denies any significant heartburn or dysphagia. His bowel movements have been regular and without any hematochezia nor melena. He denies any abdominal pain, jaundice, nor unintentional weight loss. He denies any known family history of definitive colorectal cancer although his sister had some type of intestinal cancer . As you know, Arun apparently underwent a MRI with his urologist last year which revealed the incidental finding of benign cystic pancreatic lesions felt to be consistent with IPMN. He underwent a follow-up MRI this past August which describes that there were no significant changes as compared to the previous year's MRI in regard to the pancreas. The largest cystic area appeared to be about 6 mm in size. These were located in the pancreatic body and tail and were felt to represent IPMNs according to the radiology report. There is no report of any suspicious pancreatic mass or pancreatic duct abnormality. There is no lymphadenopathy nor ascites. Arun denies any previous history of pancreatitis or other pancreatic issues in either himself or family members. He does not use any significant amounts of alcohol now nor in the past.
--- NOTE | 2025-01-02 16:11 | A.OFFVIS_ITS ---
Intake Visit Reasons: Follow up/US Intake Note: Patient is present via telehealth for a follow up/US * Renal Ultrasound 08/27 Urology Medication:FINASTERIDE Antibiotic Allergy:NONE Blood Thinner:NONE Manager Of Sustainability Required: No Allergies Floxin Otic Allergy (Severe, Uncoded 12/18/24 19:33) Headache Medication List - Last Reconciled 01/02/25 by Billy Self MD albuterol sulfate 2.5 mg (3 mL) inhalation BID 30 days albuterol sulfate 90 mcg/actuation 2 inhalations inhalation Q6H PRN 30 days lfjuajuepe-dcwsvsnd-vachvaiwry 160-9-4.8 mcg/actuation (Breztri Aerosphere) 2 inhalations inhalation BID 30 days finasteride 5 mg PO DAILY nebulizers As directed HPI Comments Details: 01/02/25-Hitesh is an 84-year-old male he was referred due to cystic renal lesion he had an MRI which did not see any enhancement in the lesion he presents for discussion follow-up renal ultrasound was done in August History of Present Illness The patient is an 84-year-old male presenting with a follow-up on a cystic renal lesion and urinary frequency. The cystic renal lesion was identified during a previous evaluation, and an MRI was performed, which showed no enhancement, indicating a benign nature. A follow-up renal ultrasound conducted in August confirmed the stability of the lesion, with no new findings noted. The patient reports increased urinary frequency, particularly after consuming caffeinated beverages such as coffee and tea. He has been advised that caffeine can irritate the bladder, especially in older age, leading to increased sensitivity and frequency. The patient is currently taking finasteride daily, which he confirms adherence to, and this medication is part of his ongoing management for prostate health. Results - MRI: 11/14/23, 08/12/24--No enhancement of renal cysts. - Renal ultrasound (08/26/24): Stable cystic lesion with no new findings Plan - renal cysts do not require routine monitoring - Continue daily finasteride as prescribed 03/06/24--FU DH-mmcsfrz-znczl mass protocol. 11/24/23--MR-KIDNEYS AND URETERS: Simple-appearing 8 cm cyst in the lateral cortex of the left kidney, Bosniak 1, for which no imaging follow up is recommended. No suspicious renal lesion. No discrete MRI correlates with the abnormality described on prior ultrasound which may have corresponded to prominence of the renal sinus fat. Plan renal US in 6 months 10/16/2023--'s being followed for BPH and elevated PSA. He is prescribed Proscar. He had PSA done on 10/02/23, results 2.31, the patient had a renal ultrasound performed on 07/17/2023 there is a small echogenic lesion 2.5 cm which may represent angiomyolipoma however further imaging is necessary to rule out a solid mass. I have discussed further evaluation with MRI renal mass protocol. Will cont proscar daily. 06/16/23-- is an 83-year-old male who is here for evaluation for elevated PSA Past Medical history Asthma-COPD overlap syndrome, Eosinophilia, Pulmonary nodules; Surgical History--History of arthroscopic knee surgery, History of appendectomy The patient had a PSA done on 05/03/2023--4.51 ng/mL and on 05/10/2023 was 5.13 ng/mL The AUA symptom score is 15. Some hesitancy nocturia x1. History of tobacco use. Prostate Exam: Smooth no hard nodules palpated, enlarged. UA--leukocytes negative, blood negative PFSH Medical History Headache Asthma Asthma-COPD overlap syndrome Eosinophilia Pulmonary nodules COPD (chronic obstructive pulmonary disease) Surgical History History of arthroscopic knee surgery History of appendectomy Family History Sister Intestinal cancer Brother Intestinal cancer Mother Intestinal cancer Social History Household Members: Spouse Caregiver staying overnight: No Housing: House Are you a primary weekend caregiver to a significant other at home: No Do you presently have visiting nurse or other home services: No 75 years or older and lives alone: No Alcohol intake: current Alcohol intake frequency: 0-2 drinks per day Alcohol type: beer and wine Patient Tobacco Use Status: Former Tobacco user Tobacco use type: Cigarette Years Smoked: 9 years total e-Cigarette/Vaping Use: Never Used service: Yes ([employer] 6 years) Current occupational status: retired and other Current occupational exposures/hazards: No Sexual orientation: Straight/Heterosexual Gender identity: Male Cognitive needs: No Hearing needs: No Vision needs: Yes (Saw the eye doctor and avoids night driving) Review of Systems Const All systems reviewed & are unremarkable except as noted in HPI and below Reports no additional complaints Eyes Reports no additional complaints ENT Reports no additional complaints Card Reports no additional complaints Resp Reports no additional complaints GI Reports no additional complaints Reports as per HPI Musc Reports no additional complaints Skin/Breast Reports system reviewed and no additional complaints, except as documented Neuro Reports no additional complaints Psych Reports no additional complaints Endo Reports no additional complaints Mele/Lymph Reports no additional complaints Aller/Immun Reports no additional complaints Telehealth Telehealth Telehealth Platform: [employer] Location of provider rendering services: practice address Location of patient: address on file Patient Identification confirmed using: Name, : Yes Telehealth method: voice only Patient verbally consented to treatment: Yes Patient verbally consented to billing insurance company: Yes Patient informed of any privacy concerns related to visit: Yes Minutes spent on Phone/Video with Pt.: 13 Results Reviewed Results Reviewed: Date of Service: 08/26/24 Exam: Ultrasound of the kidneys. Comparison: July 17, 2023. Findings: Right kidney measures 11.3 x 5.7 x 5.5 cm in size. Simple cyst within the interpolar region of the right kidney measures 4 mm in size. Is a tiny associated calcification with this measuring 2 mm in size. No hydronephrosis. Left kidney measures 12.2 x 4.9 x 4.7 cm in size. Multiple simple cysts within the left kidney. The largest is a partially exophytic cyst measuring 7.9 cm in size. No hydronephrosis. No solid mass lesion within the left kidney. Urinary bladder is moderately distended. Impression: 1. Tiny cysts within the right kidney with adjacent calcification. 2. Multiple cysts within the left kidney as above. No definitive left kidney mass is seen. Patient reportedly has a recent MRI of the abdomen from August 12, 2024. Please refer to that study as a more sensitive and specific modality for renal masses. Date of Service: 11/24/23 EXAMINATION: MR ABDOMEN WITHOUT AND WITH CONTRAST CLINICAL INFORMATION: Left renal lesion on prior ultrasound. COMPARISON: Ultrasound 07/17/2023. TECHNIQUE: MR abdomen was performed without and with use of 8 mL intravenous Gadavist gadolinium contrast. Postcontrast images are performed in multiphase dynamic sequences. Imaging was performed in 3 planes. FINDINGS: Evaluation is limited due to motion. LUNG BASES: No focal consolidation or pleural effusion. LIVER, GALLBLADDER, AND BILIARY TREE: The liver is normal in size, smooth in contour, and normal in signal. Subcentimeter simple cysts for instance in the inferior right hepatic lobe (14:46). No suspicious hepatic lesion or biliary ductal dilatation is present. The gallbladder is unremarkable with no evidence of gallbladder wall thickening, or obvious pericholecystic inflammatory changes. PANCREAS: Mild diffuse parenchymal atrophy. Scattered, up to 0.8 cm T2 bright cystic-appearing observations in the pancreas, in very close proximity with the main pancreatic duct, for example 0.8 cm lobulated and possibly septated observation in the proximal body (5:17) and 0.5 cm unilocular observation in the distal body/tail (5:18). No suspicious enhancement on postcontrast images although evaluation is limited due to motion. No main ductal dilatation. No peripancreatic inflammatory changes. SPLEEN: Normal. ADRENAL GLANDS: Normal. KIDNEYS AND URETERS: Simple-appearing 8 cm cyst in the lateral cortex of the left kidney, Bosniak 1, for which no imaging follow up is recommended. No suspicious renal lesion. No discrete MRI correlates with the abnormality described on prior ultrasound which may have corresponded to prominence of the renal sinus fat. Symmetric nephrograms. No hydronephrosis. No perinephric fat stranding. GASTROINTESTINAL TRACT: No bowel obstruction. No ascites or fluid collection. ABDOMINAL WALL: No significant hernia is appreciated. LYMPH NODES: No lymphadenopathy. VASCULAR: Normal caliber of the abdominal aorta. OSSEOUS STRUCTURES: No acute or aggressive-appearing osseous findings. IMPRESSION: 1. No suspicious renal lesion. No discrete MRI correlates with the abnormality described on prior ultrasound, which may have corresponded to prominence of the renal sinus fat. Out of precaution, a follow up renal ultrasound in 3-6 months is recommended. 2. Scattered up to 0.8 cm cystic observations in the pancreas in close proximity with the main duct, possibly representing sequela of chronic pancreatitis or small sidebranch IPMNs. Evaluation is somewhat incomplete in the absence of MRCP images and due to motion, though accounting for these limitations, no discrete high risk features are seen such as definite associated enhancement on postcontrast images nor main duct dilatation. Recommend follow-up with abdominal MRI pancreas protocol/MRCP in 6-12 months. Date of Service: 07/17/23 Procedure(s): US retroperitoneal comp EXAMINATION: US RETROPERITONEAL COMPLETE (RENAL) CLINICAL INFORMATION: Benign prostatic hyperplasia with lower urinary tract symptoms. COMPARISON: None available. TECHNIQUE: Real-time imaging of the kidneys and bladder. FINDINGS: RIGHT KIDNEY: 9.1 x 5.8 x 5.5 cm (SAG x AP x TRV). The kidney is normal in size, contour, and echogenicity. Renal cortical thickness is normal. No calculi or focal parenchymal lesions. No hydronephrosis. LEFT KIDNEY: 12.4 x 5.2 x 6.2 cm (SAG x AP x TRV). The kidney is normal in size, contour, and echogenicity. Renal cortical thickness is normal. 7 cm cyst exophytic to the upper pole. This is minimally complex with single thin septation. No imaging follow-up recommended. 2.5 x 2.3 x 3 cm solid echogenic lesion in the lower pole of the left kidney suggestive of a mass. 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 Follow-up CT or MRI of the kidneys with and without contrast recommended for further characterization. No renal calculi or hydronephrosis. BLADDER: The prostate gland protrudes into the base of the bladder. No bladder stone, mass or wall thickening seen. Bilateral ureteral jets are not demonstrated. Prevoid bladder volume is 223 mL. Postvoid bladder volume is 47.3 mL. ADDITIONAL FINDINGS: The prostate gland is enlarged measuring 5.2 x 6.7 x 5 cm, volume 92 mL. IMPRESSION: Normal right kidney. 2.5 x 2.3 x 3 cm echogenic solid mass in the lower pole of the left kidney. 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 Further characterization with CT or MR of the kidneys according to renal mass protocol with and without IV contrast recommended. Enlarged prostate gland that protrudes into the base of the bladder. 47 mL post void bladder residual. Assessment & Plan Assessment & Plan (1) Bilateral renal cysts: Code(s): N28.1 - Cyst of kidney, acquired Category: Medical (2) Screening for prostate cancer: Code(s): Z12.5 - Encounter for screening for malignant neoplasm of prostate Category: Medical (3) Urinary frequency: Code(s): R35.0 - Frequency of micturition Category: Medical (4) BPH loc w urin obs/LUTS: Code(s): N40.1 - Benign prostatic hyperplasia with lower urinary tract symptoms Category: Medical Plan Plan - renal cysts routine monitoring not indicated - Continue daily finasteride as prescribed Orders: Orders PSA,Total (Free>4and<10) 9 Months Z12.5 - Encounter for screening for malignant neoplasm of prostate Patient Instructions: The patient had an opportunity to ask questions regarding treatment plan. The patient expressed understanding and agreement with the above treatment plan. The patient is aware they should contact our office by phone for worsening of their current condition or the appearance of new symptoms. Compliance is encouraged with any medications and followup testing that is ordered. It is a privilege to be allowed the opportunity to participate in the urologic care of your patient. If you have any questions or concerns regarding treatment for the above conditions please do not hesitate to contact me. The office telephone contact is [phone]. This note is constructed in part using voice recognition software. While every effort has been made to ensure accuracy office administration instructor errors may have been included. Yours sincerely, Billy Self MD Scribe Plan - Not visible on output: Patient was informed and verbally consented to the use of an ambient scribe for clinic note documentation during this visit. Coding Level of Care Code Tele Est Pt Level 3 (83753) Diagnoses Bilateral renal cysts N28.1 Screening for prostate cancer Z12.5 Urinary frequency R35.0 BPH loc w urin obs/LUTS N40.1
--- OUTSIDE RECORDS SUMMARY | 2025-01-02 19:52 | XMS_ITS | Patient Health Record ---
Author Organization [facility] Address [address] [place] [id number] Care Team Providers Care Wall Man Name Role Phone Ace Barton Primary Care Provider Unavailab Vipin Schwartz [phone] Allergies No Known Allergies Reason For Referral No Information Medications Medication SIG (Take, Route, Frequency, Duration) Notes Start Date End Date Status Albuterol Sulfate 108 (90 Base) MCG/ACT 1 puff as needed Inhalation every 4 hrs 12/25/2024 Active Finasteride 5 MG 1 tablet Orally Once a day for 30 day(s) 12/25/2024 Active Immunizations Vaccine Route Administration Date Status Comme nts Influenza Unknown 12/26/2023 Administered Social History Tobacco Use: Social History Observation Description Date Details (start date - stop date) Never Smoker NA - NA Tobacco Control (Standard) Question Answer Notes Tobacco use: Nonsmoker AUDIT-C (Standard) Question Answer Notes Did you have a drink containing alcohol in the p ast year? No Points 0 Interpretation Negative Vital Signs Temperature 98.4 degrees Fahrenheit 12/25/2024 Blood pressure diastolic 01 mm Hg 12/25/2024 Height 68 in 12/25/2024 Blood pressure systolic 001 mm Hg 12/25/2024 Weight 169 lbs 12/25/2024 BMI 25.69 kg/m2 12/25/2024 Encounters Encounter Location Date Provider Diagnosis [facility] [address] [place] [id number] 12/25/2024 Vipin Medina IPMN (intraductal papillary mucinous neoplasm) D49.0 [facility] [address] [place] [phone] 05/20/2024 Vipin Medina Assessments Encounter Date Diagnosis (ICD Code) Assessment [...] advised of his progress. Plan Of Treatment Next Appt Details Provider Name:Vipin Medina , 07/22/2025 10:30:00 AM, [address] [place] [address], [address], [place], [address], Insurance Providers Payer Name Payer Address Payer Phone Subscriber Number Group Number Insured Name Patient Relationship to Insured Coverage Start Date Coverage End Date [place] [address] [place] [address] [id number] ARUN CARCAMO Self - patient is the insured 7 MED[employer] ATTN CLAIMS [address] [place] [phone] [id number] ARUN CARCAMO Self - patient is the insured 7 Medical (General) History Medical History History ICD Code COPD Denies HI,DM,CVA,renal disease IPMN on 2023 and 08/2024 MRI's--stable < 1cm cysts Colonoscopies in 2004 and 2009 Surgical History Surgery Date(Month/Year) Left eye surgery as a child Bilateral Knee surgery Appendectomy
== END 2025-01-02 17:01 | disposition home or self-care (01) ==
LOC: HO.HUSH 16:11
PROVIDERS: PCP Family Medicine; Visit Provider Urology
DX: N40.1 Benign prostatic hyperplasia with lower urinary tract symptoms (principal); N28.1 Cyst of kidney, acquired; Z12.5 Encounter for screening for malignant neoplasm of prostate; R35.0 Frequency of micturition
CPT/HCPCS: 99213

== ENCOUNTER 2025-01-08 11:36 | Outpatient (AMB) | payer MEDICARE, SELFPAY ==
[2025-01-08 11:38] VITALS: BP 148/70; PULSE 54; O2SAT 95; BMI 25.5
--- NOTE | 2025-01-08 11:38 | MHC.OFFVIS ---
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 During that time was exposed to significant dust from surrounding tiles in route. He started feeling under the weather once he arrived to [facility]. Started developing worsening respiratory symptoms he was taken to the hospital. There he had an x-ray which was without any acute disease in he was placed on antibiotics and also prednisone. His symptoms not improve and actually worsen in the cold the on-call doctor to visit him in his room. He actually required 2 visits. His medications were increased both prednisone and was given a course of Augmentin. He was also given a short-acting beta agonist that he did not bring with him. Now the patient is better. He did have significant weight loss. We did have him get a CT scan of the chest back in November 2018 demonstrating pulmonary nodules compared to his previous CAT scan. 02/28/2023 the patient is here for pulmonary follow-up visit. Overall doing better. He is taking the Trelegy more. He still getting short of breath with activity. He is on the treadmill for about a mallet have and is also using the bike for about a mi and a half. Tolerates this well he is also working outside. She we did talk about the significant eosinophilia. The patient will be a great candidate for al 5 inhibitors. 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 He will likely even be able to come off some of the inhalers. However, the patient is not ready for shots as of yet. I did give him information about it. He will consider. Will discuss it further in 6 months. He knows to use his inhaler more regularly to avoid any worsening symptoms. 09/05/2023 the patient is here for a pulmonary follow-up visit. He is responding well to the Trelegy inhaler. Still having episodes of coughing shortness of breath. Xhfo-qs-cqftffgi severity. He has been working outside going to mouth. The patient does have a history pulmonary nodules. The last time they did were visualized was back in 2019. He should really have a repeat CT scan to address the pulmonary nodules and make sure they are stable. He also had a chest x-ray back in 2020 demonstrating hyperinflated lungs. The patient will continue taking the Trelegy. The patient will return in the fall after having a CT scan of the chest. If he has any worsening symptoms or any other concerning symptoms she should call for an earlier assessment. 03/11/2024 the patient is here for a pulmonary follow-up visit. The patient overall has been doing okay. He is not always using the Trelegy inhaler. He notices some increased dyspnea on exertion. Also some chest daily some coughing. [id number]-rgznippx severity. Explained to him the importance of using his maintenance inhaler. He is going to try to use it more regularly. He also has a rescue inhaler that he can use as needed. Is exercising at the gym. In regards of imaging studies the patient did undergo CT scan of the chest which I personally reviewed from 11/28/2023. He has multiple pulmonary nodules but he does have a 6 mm to 8 mm subsolid pulmonary nodule. Therefore plan to repeat a CT scan again in November of 2024 a year from his last CT scan. Will follow-up after his CT scan. 05/09/2024 the patient is here for a follow-up visit. Apparently has not been doing well for the last few weeks. He started developing worsening respiratory symptoms with chest tightness and wheezing. He went to an urgent care where he was given a Z-Jonn. He continue with the Trelegy inhaler. Although he still was not feeling better so he followed up with his primary care doctor. He did have a chest x-ray personally by me which is without any acute disease. He was placed on prednisone and was given a Z-Jonn. Now he is back to his baseline. He does not like the Trelegy though because he does not like the powder does not feel like he is getting it well. Will go ahead and switch him over to Breztri. I also gave him spacer to better administer the medication better distribution medication. The patient will continue with current respiratory therapy and he is going to wean off completely from the prednisone. If coming off the prednisone his symptoms worsen he will call for right now his respiratory exam is reassuring without any wheezing she come off the prednisone without any issues at this time. He will follow-up in 3-4 months. In the meantime his is concerned because he was found to have something in the pancreas. He was sent to GI but he was referred back to his previous GI group. The patient is very concerned and also his . I did reach out to his primary care doctor to try to facilitate his referral. 08/02/2024 the patient is here for pulmonary follow-up visit. The patient overall has been doing a lot better. He is back to his baseline. He responded well to the Breztri inhaler. He takes it daily. He has not had to use his rescue inhaler. He continues on the Singulair at nighttime. We did review his vaccines. I believe he needs to get a Tdap. He will go to the pharmacy to find out. Otherwise all his vaccines are up today. The patient also is due for CAT scan sometime over the summer. Following his pulmonary nodules. Therefore, he will return 6 months if there is anything abnormal with a CAT scan let her know before him. Otherwise will follow-up for that appointment. If he has any issues prior to that he will also call for an earlier assessment. 11/19/2024 the patient is here for a pulmonary follow-up visit. Overall the patient has been doing well. He has responded well to the Breztri inhaler. He has been very active working regularly and going to the gym regularly. He has not had to use any prednisone and has not sent had to use his rescue inhaler. He has wheezing is much better on the inhaler although he continues to have evidence of significant asthma. He does have eosinophilia and likely a great candidate for biologics. But right now he seems to be doing well without the biologic injections so will hold off. His CT scan was reassuring pulmonary nodules are stable. No additional CAT scans at this time. Will discuss further testing the next visit. 01/08/2025 the patient is here for pulmonary follow-up visit. Since we last spoke the patient ended up in the ER with headaches dizziness and chest pressure. 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 He spent many hours working on this and likely resulted in some degree of dehydration and cardiac stress. He did go to the ER here. I did look at the x-ray without any acute disease. His blood work was all negative including a troponin I. However, his EKGs demonstrated some Q-waves in the anterior precordial leads. I do not have any old ones to compare. Now he is doing okay. He does not take a baby aspirin. Not sure what kind of cardiac workup he has had. The patient will be leaving to [facility] in a few weeks. Will see if we can try to get a urgent nuclear stress test before he leaves to better assess his cardiac status before his long travel. He feeds not able to get it in time the patient is okay going without it. He continues uses respiratory medicines with good effect. His asthma seems to be stable and was not precipitated during the extraneous activity. [facility] Medical History Headache Asthma Asthma-COPD overlap syndrome Eosinophilia Pulmonary nodules COPD (chronic obstructive pulmonary disease) Surgical History History of arthroscopic knee surgery History of appendectomy Family History Sister Intestinal cancer Brother Intestinal cancer Mother Intestinal cancer Social History Household Members: Spouse Caregiver staying overnight: No Housing: House Are you a primary resident care manager rn to a significant other at home: No Do you presently have visiting nurse or other home services: No 75 years or older and lives alone: No Alcohol intake: current Alcohol intake frequency: 0-2 drinks per day Alcohol type: beer and wine Patient Tobacco Use Status: Former Tobacco user Tobacco use type: Cigarette Years Smoked: 9 years total e-Cigarette/Vaping Use: Never Used service: Yes ([employer] 6 years) Current occupational status: retired and other Current occupational exposures/hazards: No Sexual orientation: Straight/Heterosexual Gender identity: Male Cognitive needs: No Hearing needs: No Vision needs: Yes (Saw the eye doctor and avoids night driving) Review of Systems Const Denies chills, Reports fatigue, Denies fever(s), Reports headache(s), Denies weight gain and Denies weight loss ENT Reports dizziness, Reports headache(s), Denies lip swelling and Denies tongue swelling Card Denies chest pain, Denies leg edema, Denies lightheadedness, Denies palpitations, Reports dyspnea on exertion, Denies orthopnea and Denies other Resp Reports cough, Reports dyspnea on exertion and Reports wheezing GI Denies hematochezia and Denies change in stool character Musc Denies abnormal gait, Denies muscle weakness, Denies numbness, Denies radiating pain into limb and Denies tingling Neuro Denies abnormal gait, Reports dizziness, Reports headache(s), Denies numbness and Denies tingling Psych Denies no additional complaints Endo Reports fatigue and Denies palpitations Mele/Lymph Denies easy bleeding and Denies lymphadenopathy Aller/Immun Denies lip swelling, Denies tongue swelling and Reports wheezing Physical Exam Vital Signs: Last Vital Signs Pulse 54 01/08/25 11:38 BP 148/70 H 01/08/25 11:38 Pulse Ox 95 01/08/25 11:38 Oxygen Delivery Method Room Air 01/08/25 11:38 BMI result Body Mass Index 25.5 Const General: alert Neck Neck: Yes normal visual inspection, Yes full ROM and Yes no lymphadenopathy Chest Chest palpation & inspection: normal inspection of the chest Resp Effort & Inspection: normal respiratory effort Auscultation: clear to auscultation bilaterally and no wheezes Cardio Rate: regular rate Rhythm: regular rhythm Heart sounds: S1 normal heart sound present and S2 normal heart sound present GI Palpation (GI): Soft to palpation and nontender Auscultation: normal bowel sounds Skin General skin exam: rashes and/or lesions noted Assessment & Plan Assessment & Plan (1) Abnormal EKG: Code(s): R94.31 - Abnormal electrocardiogram [ECG] [EKG] Category: Medical (2) Asthma-COPD overlap syndrome: Code(s): J44.9 - Chronic obstructive pulmonary disease, unspecified Category: Medical (3) Pulmonary nodules: Code(s): R91.8 - Other nonspecific abnormal finding of lung field Category: Medical (4) Eosinophilia: Code(s): D72.10 - Eosinophilia, unspecified Category: Medical Qualifiers: Eosinophilia type: other eosinophilia Qualified Code(s): D72.19 - Other eosinophilia Plan Breztri with spacer continue Singular Short-acting beta agonist as needed and also 15 minutes before exercise or extraneous activity Consider Biologic therapy with Fasenra if continues to be symptomatic. Would need to repeat bloodwork if that is the case Abnormal EKG with Q waves in the anterior leads. In view of his recent ED visit, he should have a cardiac stress test. He does have a trip to [facility] soon. Ideally should have the study before his trip. follow-up in 6 months Orders: Orders CA lexiscan stress w domonique Today R94.31 - Abnormal electrocardiogram [ECG] [EKG] Coding Level of Care Code Est Pt Level 4 (41760) Complex EM visit Add On G2211 Diagnoses Abnormal EKG R94.31 Asthma-COPD overlap syndrome J44.9 Pulmonary nodules R91.8 Other eosinophilia D72.19 Eosinophilia type: other eosinophilia Time Spent (min) 17
== END 2025-01-08 12:09 | disposition home or self-care (01) ==
LOC: HO.HPS 11:37
PROVIDERS: PCP Family Medicine; Visit Provider Hospitalist
DX: R94.31 Abnormal electrocardiogram [ECG] [EKG] (principal); J44.9 Chronic obstructive pulmonary disease, unspecified; R91.8 Other nonspecific abnormal finding of lung field; D72.19 Other eosinophilia
CPT/HCPCS: 99214; G2211

== ENCOUNTER → 2025-01-08 11:36 | Outpatient (BNVA) | payer MEDICARE, SELFPAY | PROVIDERS: PCP Family Medicine; Visit Provider Hospitalist | DX: J44.89 Other specified chronic obstructive pulmonary disease (principal); R91.8 Other nonspecific abnormal finding of lung field; D72.19 Other eosinophilia; R94.31 Abnormal electrocardiogram [ECG] [EKG]; Z87.891 Personal history of nicotine dependence | CPT/HCPCS: 99212 ==